=== PATIENT | male | born 1945 | race Caucasian/White ===

== ENCOUNTER 2018-06-11 16:09 | Emergency (ER) | payer MEDICARE, MEDICAID, SELFPAY ==
[2018-06-11 16:21] VITALS: BP 179/61; PULSE 57; RESP 16; TEMP 36.7; O2SAT 96
[2018-06-11 17:42] LABS: Bilirubin Negative (Negative); Blood Trace-lysed (Negative); Clarity Clear; Glucose Negative (Negative); Ketones Negative (Negative); Leukocyte Esterase Negative (Negative); Nitrite Negative (Negative); Urobilinogen 0.2 EU/dL (Up TO 0.2); pH 5.5 (5-8)
[2018-06-11 17:59] LABS: Epithelial Cells Rare HPF (Negative); RBC 0-2 (0-2); WBC Negative HPF (0-5)
[2018-06-11 18:00] LABS: Bacteria Rare HPF (Negative); C & S Indicated? No; Casts Negative LPF (Negative); Crystals Negative HPF (Negative); Mucus Negative (Negative)
--- NOTE | 2018-06-11 18:08 | W.ED.GENAD ---
Discharge Plan Disposition Patient Disposition: HOME Condition: Stable Discharge Details Chief Complaint: Abd Prob Clinical Impression: Leg pain, right, Umbilical hernia, Sciatica Primary Care Provider: Migel Patel ED Provider: Sandra Asher Home Meds and New Rx's Prescriptions: New diazepam 2 mg tablet 2 mg PO BID PRN (Reason: muscle spasm) Qty: 9 RF: 0 prednisone 50 mg tablet 50 mg PO DAILY Qty: 4 RF: 0 Continue vitamin B complex [B Complete] 1 EACH tablet 1 ea PO RF: 0 rosuvastatin [Crestor] 20 MG tablet 20 mg PO DAILY Qty: 90 RF: 4 rivaroxaban [Xarelto] 20 MG tablet 20 mg PO DAILY Qty: 30 RF: 11 potassium chloride 10 MEQ capsule, extended release 2 tab PO DAILY Qty: 60 RF: 11 terazosin 2 MG capsule 2 mg PO DAILY Qty: 90 RF: 3 magnesium L-lactate [Magtab] 84 MG tablet extended release 5 tab PO 3tab AM, 2tab PM Qty: 450 RF: 4 lisinopril 40 MG tablet 1 tab PO DAILY Qty: 90 RF: 4 dofetilide [Tikosyn] 500 MCG capsule 1 cap PO BID Qty: 180 RF: 4 furosemide 20 MG tablet 20 mg PO DAILY Qty: 90 RF: 3 gabapentin 300 MG capsule 300 mg PO BID Qty: 180 RF: 3 omeprazole 20 MG capsule,delayed release(DR/EC) 2 cap PO DAILY Qty: 180 RF: 0 Metoprolol Succinate 25 MG TAB.ER.24H 25 mg PO DAILY Qty: 90 RF: 4 Discharge Instructions Instructions: Diazepam (By mouth), Prednisone (By mouth), Sciatica (ED), Umbilical Hernia (ED), Leg Pain (ED) Additional Instructions: Please return immediately to the emergency department if you develop any new or worsening pain or if you become otherwise concerned. It is extremely important that you follow-up as an outpatient with your primary care doctor, a surgeon, and physical therapy within the next 1-2 weeks. Referrals: JOHANNY Ortiz [OTHER] - Faby Omalley MD [ [facility] STAFF PHYSICIAN] - Migel Patel MD [Primary Care Provider] - Discharge Data Discharge Date/Time-TO BE ENTERED AT DEPARTURE: 06/11/18 19:25 Medical Decision Making MDM Narrative Medical decision making narrative: Migel Rivas is a 73 y/o man with h/o afib on eliquis, HTN, HLD presenting to the emergency department with one week of right gluteal pain radiating into the right anterior thigh. On exam there is no motor or sensory defict of the LEs, normal rectal tone and perineal sensation, Pt is well and non-toxic appearing. Normal gait. Small reducible umbical hernia that is NTTP with benign abd exam. Exam/hx not c/w epidural hematoma or abscess, SONDRA or other spinal cord compression, spinal fx, incarcerated/strangulated hernia. Suspect sciatica. UA negative. Plan for valium and prednisone, outpt f/u with PCP, PT, and surgery for umbilical hernia. Lengthy discussion with Pt re: RTED precautions and importance of outpt f/u. He is amenable to the plan. Lab Data Lab Results 06/11/18 Range/Units 16:30 Urine Color Yellow (Yellow) Urine Clarity Clear Urine pH 5.5 (5-8) Ur Specific [place] 1.010 (1.005-1.025) Urine Protein Negative (Negative) mg/dL Urine Ketones Negative (Negative) mg/dL Urine Blood Trace-lysed H (Negative) Urine Nitrite Negative (Negative) Urine Bilirubin Negative (Negative) Urine Urobilinogen 0.2 (Up TO 0.2) EU/dL Ur Leukocyte Esterase Negative (Negative) Urine RBC 0-2 (0-2) Urine WBC Negative (0-5) HPF Ur Epithelial Cells Rare (Negative) HPF Urine Crystals Negative (Negative) HPF Urine Bacteria Rare (Negative) HPF Urine Casts Negative (Negative) LPF Urine Mucus Negative (Negative) Ur Culture Indicated? No Urine Glucose Negative (Negative) mg/dL HPI - General Adult General Mode of arrival: ambulatory. Date/Time Provider Initiated Documentation: 06/11/18 18:08. Limitations to Documentation: no limitations. Information obtained by: patient, RN notes reviewed and old records reviewed. HPI Narrative: Migel Rivas is a 73 y/o man with h/o afib on rivaroxaban, HTN, HLD presenting to the ED with right leg pain. Pt reports that for the past week he has had pain in his right buttock that radiates to the front of this right thigh. Also some mild right-sided back pain. Pt reports that pain has been unchanged since onset. Worst area is right thigh, feels like burning. Pt reports that he has taking no meds at home for this. Pt reports intermittent similar symptoms in the past, but not as severe. 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 Contrary to triage note he report no urinary symptoms. No changes in bladder function, bowel function. No n/t or weakness of the LEs. No fever, no rash, no h/o IVDU. Pain is worse with walking, improves somewhat with rest. Otherwise feels well and in his usual state of health. No other pain. He also notes umbilical bulge that come and goes and sometimes bothers him, but no pain today. Related Data Home Medications Medication Instructions Recorded Confirmed vitamin B complex [B Complete] 1 ea PO 08/31/16 Previous Rx's Medication Instructions Recorded rosuvastatin [Crestor] 20 mg PO DAILY #90 tab-cap 08/18/17 potassium chloride 2 tab PO DAILY #60 tab-cap 08/22/17 rivaroxaban [Xarelto] 20 mg PO DAILY #30 tab-cap 08/22/17 terazosin 2 mg PO DAILY #90 tab-cap 09/12/17 magnesium L-lactate [Magtab] 5 tab PO 3tab AM, 2tab PM #450 10/22/17 tab-cap lisinopril 1 tab PO DAILY #90 tab-cap 11/15/17 dofetilide [Tikosyn] 1 cap PO BID #180 tab-cap 11/28/17 furosemide 20 mg PO DAILY #90 tab-cap 01/13/18 gabapentin 300 mg PO BID #180 tab-cap 03/02/18 omeprazole 2 cap PO DAILY #180 tab-cap 03/14/18 diazepam 2 mg PO BID PRN #9 tab 06/11/18 prednisone 50 mg PO DAILY #4 tab 06/11/18 Allergies Allergy/AdvReac Type Severity Reaction Status Date / Time sildenafil AdvReac Intermediate FLUSHING Unverified 06/11/18 16:25 simvastatin AdvReac Intermediate Severe Unverified 06/11/18 16:25 myalgias General Stated Complaint: Abd Prob GUS: 3 Review of Systems Review of Systems Constitutional: denies fevers Eyes: denies eye pain ENT: denies facial pain, dental pain, sore throat Cardiovascular: denies chest pain, edema Respiratory: denies SOB, cough GI: denies abdominal pain, vomiting, diarrhea : denies flank pain MSK: denies neck pain; reports back pain, chronic right shoulder pain for months, unchanged Skin: denies rash Neuro: denies headaches, lightheadedness, weakness PFSH Family History Mother Osteoporosis Heart disease Father Heart disease Brother Heart disease Grandfather No problems noted. Grandfather Heart disease Grandmother Heart disease Grandmother Heart disease Daughter No problems noted. Son No problems noted. Social History Smoking/Tobacco Use Status: Never Surgical History EGD - MAC (08/20/14) Open Carpal Tunnel release Vasectomy Exam Narrative Exam Narrative: Constitutional: well and [id number], pleasant, conversing normally HENT: head atraumatic, normocephalic normal inspection, mucous membranes moist Eyes: conjunctiva normal, sclera normal, pupils 3mm b/l Neck: no stridor, normal ROM, trachea midline Chest: normal inspection Resp: normal work of breathing, LCTAB Cardio: normal rate, normal rhythm, no murmur appreciated GI: abdomen soft, non-tender, non-distended. normal rectal exam. reducible small soft umbilical hernia without overlying skin changes Back: normal inspection, no rash, NTTP. Mild TTP of right upper gluteal region without overlying skin changes. Skin: warm, dry, normal color, no rash Neuro: alert, not altered, grossly non-focal, normal tone, motor 5/5 b/l LEs, normal sensation b/l LEs and peritoneum, normal rectal tone Ext: no edema Psych: normal mood, normal affect, normal behavior Course Vital Signs Temperature 36.7 C 06/11/18 16:21 Pulse 57 L 06/11/18 16:21 Respiratory Rate 16 06/11/18 16:21 Blood Pressure 179/61 H 06/11/18 16:21 Pulse Oximetry 96 06/11/18 16:21 Temperature 36.7 C 06/11/18 16:21 Pulse 57 L 06/11/18 16:21 Respiratory Rate 16 06/11/18 16:21 Blood Pressure 179/61 H 06/11/18 16:21 Pulse Oximetry 96 06/11/18 16:21 Lab/Test Results Lab/Test Results: Laboratory Tests 06/11/18 16:30 Urine Color Yellow Urine Clarity Clear Urine pH 5.5 Ur Specific [place] 1.010 Urine Protein Negative Urine Ketones Negative Urine Blood Trace-lysed H Urine Nitrite Negative Urine Bilirubin Negative Urine Urobilinogen 0.2 Ur Leukocyte Esterase Negative Urine RBC 0-2 Urine WBC Negative Ur Epithelial Cells Rare Urine Crystals Negative Urine Bacteria Rare Urine Casts Negative Urine Mucus Negative Ur Culture Indicated? No Urine Glucose Negative
[2018-06-11] MEDS: predniSONE 20 MG TAB 60 MG PO (19:12)
[2018-06-11] MEDS: Acetaminophen 325 MG TAB 650 MG PO (19:12)
[2018-06-11] MEDS: Diazepam 5 MG TAB 10 MG (19:20)
--- NOTE | 2018-06-13 13:46 | ED.GENADUL_ITS ---
Discharge Plan Disposition Patient Disposition: HOME Condition: Stable Discharge Details Chief Complaint: Abd Prob Clinical Impression: Leg pain, right, Umbilical hernia, Sciatica Primary Care Provider: Migel Patel ED Provider: Sandra Asher Home Meds and New Rx's Prescriptions: New diazepam 2 mg tablet 2 mg PO BID PRN (Reason: muscle spasm) Qty: 9 RF: 0 prednisone 50 mg tablet 50 mg PO DAILY Qty: 4 RF: 0 Continue vitamin B complex [B Complete] 1 EACH tablet 1 ea PO RF: 0 rosuvastatin [Crestor] 20 MG tablet 20 mg PO DAILY Qty: 90 RF: 4 rivaroxaban [Xarelto] 20 MG tablet 20 mg PO DAILY Qty: 30 RF: 11 potassium chloride 10 MEQ capsule, extended release 2 tab PO DAILY Qty: 60 RF: 11 terazosin 2 MG capsule 2 mg PO DAILY Qty: 90 RF: 3 magnesium L-lactate [Magtab] 84 MG tablet extended release 5 tab PO 3tab AM, 2tab PM Qty: 450 RF: 4 lisinopril 40 MG tablet 1 tab PO DAILY Qty: 90 RF: 4 dofetilide [Tikosyn] 500 MCG capsule 1 cap PO BID Qty: 180 RF: 4 furosemide 20 MG tablet 20 mg PO DAILY Qty: 90 RF: 3 gabapentin 300 MG capsule 300 mg PO BID Qty: 180 RF: 3 omeprazole 20 MG capsule,delayed release(DR/EC) 2 cap PO DAILY Qty: 180 RF: 0 Metoprolol Succinate 25 MG TAB.ER.24H 25 mg PO DAILY Qty: 90 RF: 4 Discharge Instructions Instructions: Diazepam (By mouth), Prednisone (By mouth), Sciatica (ED), Umbilical Hernia (ED), Leg Pain (ED) Additional Instructions: Please return immediately to the emergency department if you develop any new or worsening pain or if you become otherwise concerned. It is extremely important that you follow-up as an outpatient with your primary care doctor, a surgeon, and physical therapy within the next 1-2 weeks. Referrals: JOHANNY Ortiz [OTHER] - Faby Omalley MD [ [facility] STAFF PHYSICIAN] - Migel Patel MD [Primary Care Provider] - Discharge Data Discharge Date/Time-TO BE ENTERED AT DEPARTURE: 06/11/18 19:25 Medical Decision Making MDM Narrative Medical decision making narrative: Migel Rivas is a 73 y/o man with h/o afib on eliquis, HTN, HLD presenting to the emergency department with one week of right gluteal pain radiating into the right anterior thigh. On exam there is no motor or sensory defict of the LEs, normal rectal tone and perineal sensation, Pt is well and non-toxic appearing. Normal gait. Small reducible umbical hernia that is NTTP with benign abd exam. Exam/hx not c/w epidural hematoma or abscess , SONDRA or other spinal cord compression, spinal fx, incarcerated/strangulated hernia. Suspect sciatica. UA negative. Plan for valium and prednisone, outpt f/ u with PCP, PT, and surgery for umbilical hernia. Lengthy discussion with Pt re : RTED precautions and importance of outpt f/u. He is amenable to the plan. Lab Data Lab Results 06/11/18 Range/Units 16:30 Urine Color Yellow (Yellow) Urine Clarity Clear Urine pH 5.5 (5-8) Ur Specific [place] 1.010 (1.005-1.025) Urine Protein Negative (Negative) mg/dL Urine Ketones Negative (Negative) mg/dL Urine Blood Trace-lysed H (Negative) Urine Nitrite Negative (Negative) Urine Bilirubin Negative (Negative) Urine Urobilinogen 0.2 (Up TO 0.2) EU/dL Ur Leukocyte Esterase Negative (Negative) Urine RBC 0-2 (0-2) Urine WBC Negative (0-5) HPF Ur Epithelial Cells Rare (Negative) HPF Urine Crystals Negative (Negative) HPF Urine Bacteria Rare (Negative) HPF Urine Casts Negative (Negative) LPF Urine Mucus Negative (Negative) Ur Culture Indicated? No Urine Glucose Negative (Negative) mg/dL HPI - General Adult General Mode of arrival: ambulatory . Date/Time Provider Initiated Documentation: 06/11/18 18:08 . Limitations to Documentation: no limitations . Information obtained by: patient, RN notes reviewed and old records reviewed . HPI Narrative: Migel Rivas is a 73 y/o man with h/o afib on rivaroxaban, HTN, HLD presenting to the ED with right leg pain. Pt reports that for the past week he has had pain in his right buttock that radiates to the front of this right thigh. Also some mild right-sided back pain. Pt reports that pain has been unchanged since onset. Worst area is right thigh, feels like burning. Pt reports that he has taking no meds at home for this. Pt reports intermittent similar symptoms in the past, but not as severe. 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 Contrary to triage note he report no urinary symptoms. No changes in bladder function, bowel function. No n/t or weakness of the LEs. No fever, no rash, no h/o IVDU. Pain is worse with walking, improves somewhat with rest. Otherwise feels well and in his usual state of health. No other pain. He also notes umbilical bulge that come and goes and sometimes bothers him, but no pain today. Related Data Home Medications Medication Instructions Recorded Confirmed vitamin B complex [B Complete] 1 ea PO 08/31/16 Previous Rx's Medication Instructions Recorded rosuvastatin [Crestor] 20 mg PO DAILY #90 tab-cap 08/18/17 potassium chloride 2 tab PO DAILY #60 tab-cap 08/22/17 rivaroxaban [Xarelto] 20 mg PO DAILY #30 tab-cap 08/22/17 terazosin 2 mg PO DAILY #90 tab-cap 09/12/17 magnesium L-lactate [Magtab] 5 tab PO 3tab AM, 2tab PM #450 10/22/17 tab-cap lisinopril 1 tab PO DAILY #90 tab-cap 11/15/17 dofetilide [Tikosyn] 1 cap PO BID #180 tab-cap 11/28/17 furosemide 20 mg PO DAILY #90 tab-cap 01/13/18 gabapentin 300 mg PO BID #180 tab-cap 03/02/18 omeprazole 2 cap PO DAILY #180 tab-cap 03/14/18 diazepam 2 mg PO BID PRN #9 tab 06/11/18 prednisone 50 mg PO DAILY #4 tab 06/11/18 Allergies Allergy/AdvReac Type Severity Reaction Status Date / Time sildenafil AdvReac Intermediate FLUSHING Unverified 06/11/18 16:25 simvastatin AdvReac Intermediate Severe Unverified 06/11/18 16:25 myalgias General Stated Complaint: Abd Prob GUS: 3 Review of Systems Review of Systems Constitutional: denies fevers Eyes: denies eye pain ENT: denies facial pain, dental pain, sore throat Cardiovascular: denies chest pain, edema Respiratory: denies SOB, cough GI: denies abdominal pain, vomiting, diarrhea : denies flank pain MSK: denies neck pain; reports back pain, chronic right shoulder pain for months , unchanged Skin: denies rash Neuro: denies headaches, lightheadedness, weakness PFSH Family History Mother Osteoporosis Heart disease Father Heart disease Brother Heart disease Grandfather No problems noted. Grandfather Heart disease Grandmother Heart disease Grandmother Heart disease Daughter No problems noted. Son No problems noted. Social History Smoking/Tobacco Use Status: Never Surgical History EGD - MAC (08/20/14) Open Carpal Tunnel release Vasectomy Exam Narrative Exam Narrative: Constitutional: well and [id number], pleasant, conversing normally HENT: head atraumatic, normocephalic normal inspection, mucous membranes moist Eyes: conjunctiva normal, sclera normal, pupils 3mm b/l Neck: no stridor, normal ROM, trachea midline Chest: normal inspection Resp: normal work of breathing, LCTAB Cardio: normal rate, normal rhythm, no murmur appreciated GI: abdomen soft, non-tender, non-distended. normal rectal exam. reducible small soft umbilical hernia without overlying skin changes Back: normal inspection, no rash, NTTP. Mild TTP of right upper gluteal region without overlying skin changes. Skin: warm, dry, normal color, no rash Neuro: alert, not altered, grossly non-focal, normal tone, motor 5/5 b/l LEs, normal sensation b/l LEs and peritoneum, normal rectal tone Ext: no edema Psych: normal mood, normal affect, normal behavior Course Vital Signs Temperature 36.7 C 06/11/18 16:21 Pulse 57 L 06/11/18 16:21 Respiratory Rate 16 06/11/18 16:21 Blood Pressure 179/61 H 06/11/18 16:21 Pulse Oximetry 96 06/11/18 16:21 Temperature 36.7 C 06/11/18 16:21 Pulse 57 L 06/11/18 16:21 Respiratory Rate 16 06/11/18 16:21 Blood Pressure 179/61 H 06/11/18 16:21 Pulse Oximetry 96 06/11/18 16:21 Lab/Test Results Lab/Test Results: Laboratory Tests 06/11/18 16:30 Urine Color Yellow Urine Clarity Clear Urine pH 5.5 Ur Specific [place] 1.010 Urine Protein Negative Urine Ketones Negative Urine Blood Trace-lysed H Urine Nitrite Negative Urine Bilirubin Negative Urine Urobilinogen 0.2 Ur Leukocyte Esterase Negative Urine RBC 0-2 Urine WBC Negative Ur Epithelial Cells Rare Urine Crystals Negative Urine Bacteria Rare Urine Casts Negative Urine Mucus Negative Ur Culture Indicated? No Urine Glucose Negative
== END 2018-06-11 19:25 | disposition home or self-care (01) ==
PROVIDERS: Emergency Provider Student in an Organized Health Care Education/Training Program; PCP Family Medicine
DX: K42.9 Umbilical hernia without obstruction or gangrene (principal); M54.32 Sciatica, left side; M79.652 Pain in left thigh; I10 Essential (primary) hypertension
CPT/HCPCS: 99283; 81003; 81015; J7512

== ENCOUNTER 2018-06-21 08:58 | Outpatient (CLI) | payer MEDICARE, MEDICAID, SELFPAY ==
[2018-06-21 11:27] LABS: Anion Gap 11.1 mmol/L (3-11); BUN 25 mg/dL (7-18); CO2 24.9 mmol/L (21.0-32.0); CREATININE 1.06 mg/dL (0.70-1.30); Chloride 101 mmol/L (98-107); Potassium 4.8 mmol/L (3.5-5.1); Sodium 137 mmol/L (136-145)
[2018-06-22 18:03] LABS: Magnesium 2.4 mg/dL (1.8-2.4)
== END 2018-06-21 09:18 ==
PROVIDERS: PCP General Practice; Visit Provider General Practice
DX: I10 Essential (primary) hypertension (principal); E83.42 Hypomagnesemia
CPT/HCPCS: 36415; 80051; 84520; 82565; 83735

== ENCOUNTER → 2018-06-27 13:09 | Outpatient (BNVA) | payer MEDICARE, MEDICAID, SELFPAY | PROVIDERS: PCP Family Medicine; Referring Provider Family Medicine; Visit Provider Surgery | DX: K42.9 Umbilical hernia without obstruction or gangrene (principal); I10 Essential (primary) hypertension | CPT/HCPCS: 99213 ==

== ENCOUNTER 2018-06-28 01:04 | Outpatient (CLI) | payer MEDICARE, MEDICAID, SELFPAY ==
--- NOTE | 2018-06-28 13:03 | DI.RAD_ITS ---
SYMPTOMS/DIAGNOSIS: HIP PAIN RIGHT HIP AND PELVIS: Three views. Comparison is 01/18/12. The right hip joint is well maintained. The bones are intact and normally mineralized. The sacroiliac joints, symphysis pubis and left hip are unremarkable. Vascular calcifications are seen. Clips are seen inferior to the pelvis suggesting prior vasectomy. IMPRESSION: No acute abnormality. Negative right hip.
== END 2018-06-28 01:24 ==
PROVIDERS: PCP General Practice; Visit Provider General Practice
DX: M25.551 Pain in right hip (principal)
CPT/HCPCS: 73502

== ENCOUNTER → 2018-07-06 10:43 | Outpatient (BNVA) | payer MEDICARE, MEDICAID, SELFPAY | PROVIDERS: Visit Provider Internal Medicine Cardiovascular Disease | DX: I48.91 Unspecified atrial fibrillation (principal); I10 Essential (primary) hypertension; Z79.01 Long term (current) use of anticoagulants; Z79.899 Other long term (current) drug therapy | CPT/HCPCS: 99213 ==

== ENCOUNTER 2018-07-10 01:58 | Outpatient (CLI) | payer MEDICARE, MEDICAID, SELFPAY | END 2018-07-10 02:18 | PROVIDERS: PCP General Practice; Visit Provider Internal Medicine Cardiovascular Disease | DX: Z53.8 Procedure and treatment not carried out for other reasons (principal) ==

== ENCOUNTER 2018-07-11 13:46 | Outpatient (CLI) | payer MEDICARE, MEDICAID, SELFPAY | END 2018-07-11 14:06 | PROVIDERS: PCP General Practice; Visit Provider General Practice | DX: I48.91 Unspecified atrial fibrillation (principal); I10 Essential (primary) hypertension; Z79.899 Other long term (current) drug therapy | CPT/HCPCS: 93005; 93010 ==

== ENCOUNTER 2018-08-31 10:42 | Emergency (ER) | payer MEDICARE, MEDICAID, SELFPAY ==
[2018-08-31] VITALS (17 sets, daily range): BP systolic 119–156; BP diastolic 48–103; PULSE 43–72; RESP 10–19; TEMP 36.5; O2SAT 94–100
--- NOTE | 2018-08-31 10:46 | W.ED.GENAD ---
Discharge Plan Disposition Patient Disposition: HOME Condition: Stable Discharge Details Chief Complaint: Dizzy/Sync Clinical Impression: Bradycardia, Recommended medication dosage not followed Primary Care Provider: Eliot Patterson ED Provider: Sandra Asher Home Meds and New Rx's Prescriptions: Continue vitamin B complex [B Complete] 1 EACH tablet 1 ea PO RF: 0 rosuvastatin [Crestor] 20 MG tablet 20 mg PO DAILY Qty: 90 RF: 4 rivaroxaban [Xarelto] 20 MG tablet 20 mg PO DAILY Qty: 30 RF: 11 potassium chloride 10 MEQ capsule, extended release 2 tab PO DAILY Qty: 60 RF: 11 terazosin 2 MG capsule 2 mg PO DAILY Qty: 90 RF: 3 magnesium L-lactate [Magtab] 84 MG tablet extended release 5 tab PO 3tab AM, 2tab PM Qty: 450 RF: 4 lisinopril 40 MG tablet 1 tab PO DAILY Qty: 90 RF: 4 dofetilide [Tikosyn] 500 MCG capsule 1 cap PO BID Qty: 180 RF: 4 furosemide 20 MG tablet 20 mg PO DAILY Qty: 90 RF: 3 gabapentin 300 MG capsule 300 mg PO BID Qty: 180 RF: 3 omeprazole 20 MG capsule,delayed release(DR/EC) 2 cap PO DAILY Qty: 180 RF: 0 Metoprolol Succinate 25 MG TAB.ER.24H 25 mg PO DAILY Qty: 90 RF: 4 diazepam 2 mg tablet 2 mg PO BID PRN (Reason: muscle spasm) Qty: 9 RF: 0 prednisone 50 mg tablet 50 mg PO DAILY Qty: 4 RF: 0 Discharge Instructions Additional Instructions: Please take your medications as prescribed. Please return immediately to the emergency department if you develop any new or worsening symptoms or if you become otherwise concerned. It is extremely important that you make an appointment to be seen in follow-up by your primary care doctor within the next 1-2 weeks. Referrals: Eliot Patterson MD [Primary Care Provider] - Discharge Data Discharge Date/Time-TO BE ENTERED AT DEPARTURE: 08/31/18 12:06 Medical Decision Making Migel Rivas is a 73-year-old man with history of atrial fibrillation on Tikosyn, anticoagulation, hypercholesterolemia, hypertension presenting to the emergency department from his PCPs office with bradycardia after taking extra doses of metoprolol, with total of 100 mg metoprolol XL taken in the past 24 hours. He is currently asymptomatic other than feeling tired. On exam patient is very well and nontoxic appearing. Heart rate between 40 and 60 on the monitor. Blood pressure between 130 and 150 systolic. Otherwise benign cardiopulmonary exam. Patient exam/history is not consistent with significant beta-case overdose or polypharmacy overdose. EKG shows sinus bradycardia. I did discuss patient's presentation with poison control, who recommended no action, no observation period needed as total dose was less than 400 mg in 24 hours. I had a lengthy discussion with the patient regarding proper use of his medications and importance of taking them only as prescribed. Lengthy discussion also regarding return to emergency department precautions and importance of outpatient follow-up with his PCP and ENT on Tuesday as scheduled. Patient reports that he feels very well and would like to go home at this point. He is amenable to the discharge plan. Patient walked out of the emergency department without issue. Medical Records Medical records reviewed: Yes I reviewed the patient's medical records. ECG Data Attestation: I personally reviewed and interpreted this ECG (s) as follows: Interpretation: EKG shows sinus bradycardia at 44 with normal axis, no acute ischemic changes HPI General Mode of arrival: ambulatory. Date/Time Provider Initiated Documentation: 08/31/18 10:46. Limitations to Documentation: no limitations. Information obtained by: patient, RN notes reviewed and old records reviewed. HPI Narrative: Migel Rivas is a 73-year-old man with history of hypertension, A. fib on anticoagulation, hypercholesterolemia presenting to the emergency department with taking extra doses of metoprolol. Patient reports that he takes 25 mg of metoprolol XL daily in the morning. He reports that he take his blood pressure last night, and found to be 180/80. He called a friend of his who is a nurse practitioner, and she instructed him to take an extra dose of his 25 mg metoprolol XL. He took this extra dose at approximately 9:00 last night. Patient reports that this morning his blood pressure was 150/60, and he doubled his morning dose, that is, he took a total of 50 mg of metoprolol XL this morning. Patient saw his PCP, Dr. Patterson, this morning at scheduled visit for head cold he has been experiencing over the past 2 weeks. At this visit he was found to be bradycardic with a heart rate of 38, and was sent to the emergency department for evaluation. Patient walked to the emergency department from his doctor's office without issue. Patient reports that he has bilateral ear fullness that has been ongoing for the past week and he feels somewhat tired over the past few days, otherwise he denies having any symptoms. No lightheadedness or fainting, no numbness/tingling/weakness, no shortness of breath, no pain. Has been taking all of his other medications as prescribed. Has never increase his metoprolol dose in the past before. Patient reports that his typical heart rate is around 55 or 56. Has been eating and drinking as usual. Related Data Home Medications Medication Instructions Recorded Confirmed vitamin B complex [B Complete] 1 ea PO 08/31/16 06/27/18 rosuvastatin [Crestor] 20 mg PO DAILY #90 tab-cap 08/18/17 08/31/18 potassium chloride 2 tab PO DAILY #60 tab-cap 08/22/17 08/31/18 rivaroxaban [Xarelto] 20 mg PO DAILY #30 tab-cap 08/22/17 08/31/18 terazosin 2 mg PO DAILY #90 tab-cap 09/12/17 08/31/18 magnesium L-lactate [Magtab] 5 tab PO 3tab AM, 2tab PM #450 10/22/17 08/31/18 tab-cap lisinopril 1 tab PO DAILY #90 tab-cap 11/15/17 08/31/18 dofetilide [Tikosyn] 1 cap PO BID #180 tab-cap 11/28/17 08/31/18 furosemide 20 mg PO DAILY #90 tab-cap 01/13/18 08/31/18 gabapentin 300 mg PO BID #180 tab-cap 03/02/18 08/31/18 omeprazole 2 cap PO DAILY #180 tab-cap 03/14/18 08/31/18 diazepam 2 mg PO BID PRN #9 tab 06/11/18 08/31/18 prednisone 50 mg PO DAILY #4 tab 06/11/18 08/31/18 Previous Rx's Medication Instructions Recorded rosuvastatin [Crestor] 20 mg PO DAILY #90 tab-cap 08/18/17 potassium chloride 2 tab PO DAILY #60 tab-cap 08/22/17 rivaroxaban [Xarelto] 20 mg PO DAILY #30 tab-cap 08/22/17 terazosin 2 mg PO DAILY #90 tab-cap 09/12/17 magnesium L-lactate [Magtab] 5 tab PO 3tab AM, 2tab PM #450 10/22/17 tab-cap lisinopril 1 tab PO DAILY #90 tab-cap 11/15/17 dofetilide [Tikosyn] 1 cap PO BID #180 tab-cap 11/28/17 furosemide 20 mg PO DAILY #90 tab-cap 01/13/18 gabapentin 300 mg PO BID #180 tab-cap 03/02/18 omeprazole 2 cap PO DAILY #180 tab-cap 03/14/18 diazepam 2 mg PO BID PRN #9 tab 06/11/18 prednisone 50 mg PO DAILY #4 tab 06/11/18 Allergies Allergy/AdvReac Type Severity Reaction Status Date / Time sildenafil AdvReac Intermediate FLUSHING Verified 08/31/18 11:05 simvastatin AdvReac Intermediate Severe Verified 08/31/18 11:05 myalgias General GUS: 3 Review of Systems Review of Systems Constitutional: denies fevers, reports fatigue Eyes: denies eye pain ENT: denies facial pain, dental pain, sore throat, reports ear fullness Cardiovascular: denies chest pain, edema Respiratory: denies SOB, cough GI: denies abdominal pain, vomiting, diarrhea : denies flank pain MSK: denies back pain, arthralgias, myalgias Skin: denies rash Neuro: denies headaches, lightheadedness, weakness 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 Grandfather Heart disease Grandmother Heart disease Grandmother Heart disease Daughter No problems noted. Son No problems noted. H/O colonoscopy (Chronic ~2012) EGD - MAC (08/20/14) Open Carpal Tunnel release Vasectomy Family History Mother Osteoporosis Heart disease Father Heart disease Brother Heart disease Grandfather No problems noted. Grandfather Heart disease Grandmother Heart disease Grandmother Heart disease Daughter No problems noted. Son No problems noted. 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 drug (Chronic) Adequate anticoagulation on anticoagulant therapy (Chronic) Atrial fibrillation (Chronic) New onset atrial fibrillation (Chronic 01/03/14) Syncopal episodes (Chronic 01/03/14) Irritable bowel syndrome (Chronic) Diverticulitis (Chronic 12/31/13) Gastroesophageal reflux disease (Chronic) Hypertension (Chronic) Decreased hearing (Chronic) right arm dysfunction (Chronic) Colonic polyp (Chronic) Hypercholesterolemia (Chronic) Social History Smoking/Tobacco Use Status: Never Surgical History H/O colonoscopy (Chronic ~2012) EGD - MAC (08/20/14) Open Carpal Tunnel release Vasectomy Social History Smoking/Tobacco Use Status: Never Exam Narrative Exam Narrative: Constitutional: well and [id number], pleasant, conversing normally HENT: head atraumatic, normocephalic normal inspection, mucous membranes moist, bilateral canals occluded with cerumen Eyes: conjunctiva normal, sclera normal, pupils 3mm b/l Neck: no stridor, normal ROM, trachea midline Chest: normal inspection Resp: normal work of breathing, LCTAB Cardio: Bradycardic rate, normal rhythm, no murmur appreciated Back: normal inspection, no rash Skin: warm, dry, normal color, no rash Neuro: alert, not altered, grossly non-focal, normal tone Ext: no edema Psych: normal mood, normal affect, normal behavior
== END 2018-08-31 12:06 | disposition home or self-care (01) ==
LOC: ER 12:11
PROVIDERS: Emergency Provider Student in an Organized Health Care Education/Training Program; PCP General Practice
DX: T44.7X2A Poisoning by beta-adrenoreceptor antagonists, intentional self-harm, initial encounter (principal); R00.1 Bradycardia, unspecified; I10 Essential (primary) hypertension
CPT/HCPCS: 93005; 99283; 93010

== ENCOUNTER 2019-04-26 08:12 | Outpatient (CLI) | payer MEDICARE, MEDICAID, SELFPAY | END 2019-04-26 08:32 | PROVIDERS: PCP General Practice; Visit Provider Internal Medicine Cardiovascular Disease | DX: I48.91 Unspecified atrial fibrillation (principal); Z79.899 Other long term (current) drug therapy; I10 Essential (primary) hypertension; Z79.01 Long term (current) use of anticoagulants; E78.00 Pure hypercholesterolemia, unspecified | CPT/HCPCS: 99214 ==

== ENCOUNTER 2019-04-26 12:40 | Outpatient (CLI) | payer MEDICARE, MEDICAID, SELFPAY ==
[2019-04-26 14:30] LABS: Anion Gap 7.3 mmol/L (3-11); BUN 17 mg/dL (7-18); CO2 28.7 mmol/L (21.0-32.0); CREATININE 1.01 mg/dL (0.70-1.30); Calcium 9.7 mg/dL (8.5-10.1); Chloride 104 mmol/L (98-107); Glucose 101 mg/dL (70-100); Magnesium 2.1 mg/dL (1.8-2.4); Potassium 4.6 mmol/L (3.5-5.1); Sodium 140 mmol/L (136-145)
== END 2019-04-26 13:00 ==
PROVIDERS: PCP General Practice; Visit Provider Internal Medicine Cardiovascular Disease
DX: I48.91 Unspecified atrial fibrillation (principal); Z79.899 Other long term (current) drug therapy; I10 Essential (primary) hypertension
CPT/HCPCS: 36415; 80048; 99214; 83735

== ENCOUNTER 2019-09-24 08:08 | Outpatient (CLI) | payer MEDICARE, MEDICAID, SELFPAY | END 2019-09-24 08:28 | PROVIDERS: PCP Family Medicine; Visit Provider Internal Medicine Cardiovascular Disease | DX: I48.91 Unspecified atrial fibrillation (principal); I10 Essential (primary) hypertension | CPT/HCPCS: 99204; 99215; 93005; 93010 ==

== ENCOUNTER → 2020-03-21 12:52 | Outpatient (BNVA) | payer MEDICARE, SELFPAY | PROVIDERS: PCP Family Medicine; Referring Provider Family Medicine; Visit Provider Surgery | DX: K42.0 Umbilical hernia with obstruction, without gangrene (principal); I10 Essential (primary) hypertension | CPT/HCPCS: 99213 ==

== ENCOUNTER 2020-03-31 07:43 | Outpatient (CLI) | payer MEDICARE, SELFPAY ==
[2020-04-01 01:44] LABS: COVID-19 RT-PCR UVMMC Result Negative (Negative)
== END 2020-03-31 08:03 ==
PROVIDERS: PCP Family Medicine; Visit Provider Surgery
DX: Z01.818 Encounter for other preprocedural examination (principal); Z03.818 Encounter for observation for suspected exposure to other biological agents ruled out
CPT/HCPCS: U0003

== ENCOUNTER 2020-04-02 06:17 | Day surgery (SDC) | payer MEDICARE, SELFPAY ==
[2020-04-02] VITALS (7 sets, daily range): BP systolic 138–170; BP diastolic 70–100; PULSE 46–68; RESP 13–16; TEMP 36.3–36.6; O2SAT 97–99
--- NOTE | 2020-04-02 06:07 | W.PM.OP ---
Date of service: 04/02/20 Time of Service: 08:38 Operative Note Operative Note DATE OF PROCEDURE: 04/02/20 PRE-OP DIAGNOSIS: Umbilical Hernia POST-OP DIAGNOSIS: same PROCEDURE: Primary Umbilical hernia repair SURGEON: Faby Omalley CIRCUIT BREAKER ASSEMBLER: Owen Madrid ANESTHESIA: MAC, regional (Bialteral Rectus block) and local (0.25% Marcaine mixed with 2% Lidocaine) ESTIMATED BLOOD LOSS: 10 PATHOLOGY: none sent COMPLICATIONS: None Patient was transported to: PACU Patient's condition: stable Indications: Mr. Rivas is a pleasant 75 year old with an umbilical hernia that is now starting to cause some discomfort. Risks, benefits and complications have been reviewed. Complications include but are not limited to bleeding, pain, infection, injury to underlying structures like bowel and adverse reaction to the medication. Questions were entertained and answered to their satisfaction and they wished to proceed. No guarantees were given or implied. Findings: Small 1 cm defect withy omentum incarcerated Procedure Description: After informed consent was obtained the patient was taken to the operating room and placed in a supine position. Monitors and SCDs were applied and a timeout was done. The patient's name, date of , procedure type, procedure site, allergies to medications, preoperative antibiotic, and DVT prophylaxis were all reviewed. Fire risk was assessed. Anesthesia then did a bilateral rectus block. Please see their procedure note. Once anesthesia was done the abdomen was prepped and draped in a sterile surgical fashion. 0.5% Bupivacaine mixed with 2% Lidocaine was injected into the dermis just above the umbilicus. An incision was made with a 15 blade over the umbilicus. Dissection was done with cautery through the subcutaneous tissues and through the umbilical stalk down to the fascia. The hernia defect was identified and measured 1 cm. The hernia sac was opened and some omentum was noted. I could not easily reduce the omentum so it was resected. The hernia sac was resected at the level of the fascia. The peritoneum was swept for adhesions. No adhesions were palpated. Because the defect was so small I repaired it with a figure of eight suture with 0 Vicryl. No bleeding was identified. 2-0 Vicryl was used to secure the umbilicus down to the fascia. The subcutaneous tissue was re-approximated with 2-0 vicryl. The dermis was re-approximated with a running 4-0 Vicryl. The skin was cleaned and dried and skin affix was applied. The patient was woken up and taken back to recovery in stable condition. There were no immediate complications. Sponge, instrument and needle counts were correct at the end of the case x2.
--- NOTE | 2020-04-02 06:10 | W.PM.DSUDISC ---
Discharge Plan Disposition Patient Disposition: HOME Condition: Good Discharge Details Reason For Visit: umbilical hernia Attending Provider: Faby Omalley Primary Care Provider: Carlitos Savage Home Meds and New Rx's Prescriptions: New acetaminophen [Tylenol] 325 mg tablet 650 mg PO Q6H PRNQty: 30 RF: 0 oxycodone 5 mg tablet 5 mg PO Q6H PRN (Reason: pain) Qty: 10 RF: 0 Continued metoprolol succinate 25 mg tablet extended release 24 hr 25 mg PO DAILY Qty: 90 RF: 3 gabapentin 300 mg capsule 300 mg PO QHS RF: 0 lisinopril 40 mg tablet 40 mg PO DAILY RF: 0 furosemide 20 mg tablet 20 mg PO DAILY RF: 0 Xarelto 20 MG tablet 20 mg PO DAILY Qty: 30 RF: 11 omeprazole 20 MG capsule,delayed release(DR/EC) 2 cap PO DAILY Qty: 180 RF: 0 rosuvastatin 20 mg tablet 20 mg PO DAILY Qty: 90 RF: 3 dofetilide [Tikosyn] 500 mcg capsule 500 mcg PO BID Qty: 180 RF: 4 terazosin 2 mg capsule 2 mg PO DAILY Qty: 90 RF: 3 fluticasone propionate 50 mcg/actuation spray,suspension 2 spray NIEVES DAILY RF: 0 potassium chloride 10 mEq capsule, extended release 20 meq PO DAILY Qty: 60 RF: 11 magnesium L-lactate [Magtab] 84 mg tablet extended release 420 mg PO 3tab AM, 2tab PM Qty: 450 RF: 4 Discontinued ibuprofen 200 mg tablet 200 mg PO Q6H PRNRF: 0 No Action acetaminophen 325 mg Tablet RF: 0 Discharge Instructions Additional Instructions: Activity at Home after surgery: 1. Make sure you walk outside at least 4 times per day 2. You should be able to climb a flight of stairs 3. No driving while in pain or taking pain medications 4. No strenuous activity or heavy lifting for 4 weeks (open surgery) Diet, Nutrition, & wound healin. Avoid alcohol until after you are recovered from your surgery 2. Make sure to eat plenty of lean protein (meat, fish, eggs, cottage cheese, beans) 3. Eat a variety of fruits and vegetables. Eat plenty of high fiber foods to avoid constipation. 4. Drink plenty of liquids to stay hydrated and avoid constipation Pain Medications: 1. Tylenol 650 mg every 6 hours 2. If a narcotic has been prescribed take as directed only for breakthrough pain For Constipation: 1. Take Milk of Magnesia or MiraLax as needed for constipation Other: 1. You may shower daily. Do not scrub the incisions 2. Do not soak the incisions for 1 week 3. You may alternate ice and heat as needed for pain and swelling Wound Care: 1. Keep the incisions clean and dry Please call our office if you develop: 1. Fevers >101.5 2. Nausea or Vomiting 3. Worsening pain 4. Redness and thick discharge from the wounds If after hours please call the Hospital at and ask to speak to the on-call surgeon Referrals: Faby Omalley MD [ [facility] STAFF PHYSICIAN] - Activity:: no lifting >20 lb x 4 weeks Diet:: As Tolerated Discharge Orders Discharge Orders: Discharge Order (Routine); Ordered 04/02/20 Ordered By: Faby Omalley
[2020-04-02] MEDS: Acetaminophen 500 MG TAB 1000 MG PO (07:04)
[2020-04-02] MEDS: Celecoxib 200 MG CAP PO (07:05)
[2020-04-02] MEDS: Lactated Ringers 1,000 ML 80 ML IV (07:12)
[2020-04-02] MEDS: ceFAZolin 2 GM/50 ML BAG IVPB (07:40)
[2020-04-02] MEDS: Bupivacaine 0.25% Pres-Free 10 ML VIAL (07:45)
[2020-04-02] MEDS: Bupivacaine 0.25% Pres-Free 30 ML VIAL ×2 (07:45→08:24)
--- NOTE | 2020-04-02 08:17 | NUR.NOTE ---
Nursing Note: Bilateral Rectus Sheath block by Salinas Dean, DERRICK CAR OPERATOR
[2020-04-02] MEDS: Lidocaine 2% Multi-Dose 50 ML VIAL (08:26)
== END 2020-04-02 10:43 | disposition home or self-care (01) ==
LOC: SUR 06:17
PROVIDERS: PCP Family Medicine; Visit Provider Surgery
PROC: (CPT 49585; principal; 2020-04-02 07:30)
DX: K42.9 Umbilical hernia without obstruction or gangrene (principal); G89.18 Other acute postprocedural pain; I10 Essential (primary) hypertension; G47.33 Obstructive sleep apnea (adult) (pediatric)
CPT/HCPCS: 49585; 76942; J0690; J2405

== ENCOUNTER → 2020-04-18 09:31 | Outpatient (BNVA) | payer MEDICARE, SELFPAY | PROVIDERS: PCP Family Medicine; Referring Provider Family Medicine; Visit Provider Surgery | DX: Z48.815 Encounter for surgical aftercare following surgery on the digestive system (principal) ==

== ENCOUNTER → 2020-07-10 08:51 | Outpatient (BNVA) | payer MEDICARE, SELFPAY | PROVIDERS: PCP Family Medicine; Referring Provider Family Medicine; Visit Provider Nurse Practitioner Adult Health | DX: G62.9 Polyneuropathy, unspecified (principal); R73.03 Prediabetes; R20.2 Paresthesia of skin; I10 Essential (primary) hypertension | CPT/HCPCS: 99214 ==

== ENCOUNTER 2020-07-15 12:18 | Outpatient (REF) | payer MEDICARE, SELFPAY | END 2020-07-15 12:38 | LOC: LBN 12:18 | PROVIDERS: PCP Family Medicine; Visit Provider Student in an Organized Health Care Education/Training Program | DX: R19.7 Diarrhea, unspecified (principal); Z86.010 Personal history of colon polyps; R10.11 Right upper quadrant pain; R14.0 Abdominal distension (gaseous) | CPT/HCPCS: 87046; 87505; 82270 ==

== ENCOUNTER 2020-07-17 14:42 | Outpatient (REF) | payer MEDICARE, SELFPAY ==
[2020-07-21 15:15] LABS: Misc Referral (VDH) See Comments
== END 2020-07-17 15:02 ==
LOC: LBN 14:42
PROVIDERS: PCP Family Medicine; Visit Provider Student in an Organized Health Care Education/Training Program
DX: R19.7 Diarrhea, unspecified (principal)
CPT/HCPCS: 87505; 87177

== ENCOUNTER 2020-07-23 02:43 | Outpatient (CLI) | payer MEDICARE, SELFPAY ==
--- NOTE | 2020-07-23 07:00 | DI.US_ITS ---
EXAM: US ABDOMEN INDICATION: R/O biliary pathology,ruq abd tenderness,r10.811,diarrhea,constipation,abd COMPARISON: US US OR ANESTHESIA from 04/02/2020 TECHNIQUE: Ultrasound abdomen performed using standard protocol FINDINGS: Abdominal ultrasound was performed according to the usual protocol. The liver is normal in size and shape. No focal hepatic lesion seen, however there is increased echo genicity of the hepatic parenchyma raising the possibility of hepatic steatosis. There is no evidence of cholelithiasis or biliary dilatation. No gallbladder wall thickening or peric holecystic fluid collection. Pancreas appears intact as visualized. Spleen is unremarkable in appearance with no focal lesion. Kidneys are normal in size and shape. No renal mass, hydronephrosis, or nephrolithiasis. Abdominal aorta and IVC are of normal diameter as visualized, proximal aorta is not visualized.. IMPRESSION: Negative abdominal ultrasound except for probable hepatic steatosis..
--- NOTE | 2020-07-23 09:33 | DI.RAD_ITS ---
EXAM: XR ABDOMEN FLAT UPRIGHT CLINICAL HISTORY: r/o constipation, obstipation,diarrhea,abd bloating,r14.0,r19.7,z87.19 TECHNIQUE: COMPARISON: CR ABD FLAT UPRIGHT PA CHEST from 12/31/2013 FINDINGS: Four views were obtained. Bowel gas pattern is within normal limits. No free intraperitoneal air on the upright view. No gross organomegaly. IMPRESSION: No acute abnormality seen. RADIATION DOSE DELIVERED: Total DLP
== END 2020-07-23 03:03 ==
PROVIDERS: PCP Family Medicine; Visit Provider Student in an Organized Health Care Education/Training Program
DX: R14.0 Abdominal distension (gaseous) (principal); R19.7 Diarrhea, unspecified; Z87.19 Personal history of other diseases of the digestive system; R10.811 Right upper quadrant abdominal tenderness
CPT/HCPCS: 74019; 76700

== ENCOUNTER 2020-08-04 08:15 | Outpatient (REF) | payer MEDICARE, SELFPAY ==
[2020-08-06 15:19] LABS: Giardia & Cryptosporidium Ag See Comments
== END 2020-08-04 08:35 ==
LOC: LBN 08:15
PROVIDERS: PCP Family Medicine; Visit Provider Family Medicine
DX: R19.7 Diarrhea, unspecified (principal)
CPT/HCPCS: 87329

== ENCOUNTER → 2020-08-12 08:37 | Outpatient (BNVA) | payer MEDICARE, SELFPAY | PROVIDERS: PCP Family Medicine; Referring Provider Family Medicine; Visit Provider Surgery | DX: R19.7 Diarrhea, unspecified (principal); Z11.59 Encounter for screening for other viral diseases | CPT/HCPCS: 99212; 99213 ==

== ENCOUNTER 2020-08-14 02:54 | Outpatient (CLI) | payer MEDICARE, SELFPAY ==
[2020-08-15 22:17] LABS: SARS-CoV-2 RNA Source Nasal/Nares
[2020-08-15 22:18] LABS: SARS-CoV-2 RNA Not Detected (NotDetected)
== END 2020-08-14 03:14 ==
PROVIDERS: PCP Family Medicine; Visit Provider Surgery
DX: Z11.59 Encounter for screening for other viral diseases (principal); Z01.818 Encounter for other preprocedural examination
CPT/HCPCS: U0003

== ENCOUNTER 2020-08-18 06:53 | Day surgery (SDC) | payer MEDICARE, SELFPAY ==
--- NOTE | 2020-08-18 06:53 | W.COLOREPORT ---
Date of service: 08/18/20 Time of Service: 08: Colonoscopy Report Date of procedure: 08/18/20 Pre-op diagnosis general: Diarrhea Post-op diagnosis procedure note: other (polyps, mild diverticulosis) Procedure: Colonoscopy with polypectomy and random biopsies Surgeon: Faby Omalley Anesthesia proc note operative: other (General/ASA 3/Nena Gotti, BELL) Estimated blood loss (mL): 3 Pathology: other (ascending and descending polyps, random bx of ascending, transverse, descending, sigmoid colon and rectum.) Complications: None Disposition: same day Indications: Mr. Rivas is here today because he started having diarrhea approximately 7 weeks ago. He has 6-8 bowel movements a day which are pretty liquid. He has some associated mid abdominal pain. His pain does improve after having a bowel movement. Nobody else in the family has been ill and his stool studies were all negative for ova parasite or bacterial infection. Differential includes inflammatory bowel disease secondary to viral enteritis. I explained to him that sometimes after viral gastroenteritis patients may continue with diarrhea 6+ months afterwards. He could have developed microscopic colitis or collagenous colitis. I do not suspect that he has a colonic mass. He was wondering about this but I explained that they did not see any diverticuli in 2011 or 2014. He is 5 years out from his last colonoscopy. With these new symptoms it is reasonable to repeat his colonoscopy. If there is no visible inflammation then I will do random biopsies to rule out microscopic and collagenous colitis. Colonoscopy procedure was explained to the patient as well as the prep. We went over risks and benefits. We also reviewed Covid testing prior to procedure as well as quarantine requirements. Patient understands and is willing to proceed with Covid testing and quarantine prior to colonoscopy. Risks, benefits and complications have been reviewed. Complications include but are not limited to bleeding, pain, perforation, missed small lesion/polyp, sore throat, aspiration and adverse reaction to the medications. Questions were entertained and answered to their satisfaction and they wished to proceed. No guarantees were given or implied. Prep: Miralax/Dulcolax Procedure Start Time: :23 Procedure End Time: 08:48 Retraction Time: 21 minutes Findings: mild diverticulosis 2 polyps no visible inflammation Procedure Description: After informed consent was obtained the patient was taken to the procedure room and placed in a left decubitous position. Monitors were applied and a time out was done. The patients name, date of , procedure, allergies to medications and metal in their body was reviewed. The patient was then sedated. Once sedated and comfortable a rectal exam was done. External exam was normal. Internal exam revealed a normal sphincter tone and no palpable masses. The prostate felt smooth. The scope was then introduced and retro-flexed. No internal hemorrhoids were identified. The scope was then advanced to the cecum without difficulty. The ileocecal valve and appendiceal orifice were identified. The prep was good. The scope was then slowly retracted over 21 minutes back into the rectum. Polyps were removed with cold forceps in the ascending and descending polyp. Random bx were done with cold forceps in the ascending, transverse, descending, sigmoid colon and rectum to rule out microscopic/collagenous colitis. There was no gross inflammation noted. There was mild sigmoid diverticulosis noted. The scope was removed and the patient was woken up and taken back to Same day surgery in stable condition. The patient tolerated the procedure well and there were no immediate complications. Follow up: Follow up will depend on biopsy results
--- NOTE | 2020-08-18 06:54 | W.PM.DSUDISC ---
Discharge Plan Disposition Patient Disposition: HOME Condition: Good Discharge Details Reason For Visit: Diarrhea Attending Provider: Faby Omalley Primary Care Provider: Carlitos Savage Home Meds and New Rx's Prescriptions: Continued metoprolol succinate 25 mg tablet extended release 24 hr 25 mg PO DAILY Qty: 90 RF: 3 gabapentin 300 mg capsule 300 mg PO QHS RF: 0 Benefiber Sugar Free (dextrin) 3 gram/4 gram powder in packet 1 packet PO DAILY RF: 0 omeprazole 20 MG capsule,delayed release(DR/EC) 2 cap PO DAILY Qty: 180 RF: 0 fluticasone propionate 50 mcg/actuation spray,suspension 2 spray NIEVES DAILY RF: 0 potassium chloride 10 mEq capsule, extended release 20 meq PO DAILY Qty: 60 RF: 11 magnesium L-lactate [Magtab] 84 mg tablet extended release 420 mg PO 3tab AM, 2tab PM Qty: 450 RF: 4 lisinopril 40 mg tablet 40 mg PO DAILY Qty: 90 RF: 3 Xarelto 20 mg tablet 20 mg PO DAILY Qty: 30 RF: 11 dofetilide [Tikosyn] 500 mcg capsule 500 mcg PO BID Qty: 180 RF: 4 furosemide 20 mg tablet 20 mg PO DAILY Qty: 90 RF: 3 rosuvastatin 20 mg tablet 20 mg PO DAILY Qty: 90 RF: 3 terazosin 2 mg capsule 2 mg PO DAILY Qty: 90 RF: 3 acetaminophen [Tylenol] 325 mg tablet 650 mg PO Q6H PRNQty: 30 RF: 0 Discontinued bisacodyl [Dulcolax (bisacodyl)] 5 mg tablet,delayed release (DR/EC) 5 mg PO ONCE Qty: 4 RF: 0 polyethylene glycol 3350 17 gram powder in packet 255 g PO DAILY Qty: 15 RF: 0 Discharge Instructions Instructions: Diverticulosis (DC), Colorectal Polyps (DC) Additional Instructions: Findings: 2 small polyps mild diverticulosis Follow up: I will call you with results of the bx and polyps and they come up with a plan Please call if you develop: fevers >101.5 Nausea or Vomiting Abdominal pain that is not transient DAY SURGERY UNIT POST ENDOSCOPY INSTRUCTIONS 1. Because there will be medication in your system for the next 24 hours, you may feel a little sleepy. Your coordination will be affected. Therefore: a. Do not drive or operate dangerous equipment for 24 hours. b. Do not drink alcohol beverages for 24 hours (not even beer). c. Plan to go home and rest for the day. 2. Generally there are no restrictions on your activity after a day or so has gone by, but you may feel a bit fatigued for a few days. 3 After you arrive home you may have a light meal and return to a normal diet as you can tolerate it without feeling sick to your stomach. 4. After surgery, you may feel pain or discomfort. This should be only transient, but if it persists please contact your doctor. 5. If there are any questions regarding the findings of your procedure, please feel free to contact your doctor. 6. If you are unable to contact your doctor with a problem, contact the hospital at [phone]. 7. Continue all your regular medications unless directed otherwise. I understand the above instructions and have no questions. Signature of Patient or Responsible Adult Escort Date/Time Name of Responsible Adult Escort Signature of Nurse Date/Time Activity:: Activity as Tolerated Diet:: As Tolerated Discharge Orders Discharge Orders: Discharge Order (Routine); Ordered 08/18/20 Ordered By: Faby Omalley
[2020-08-18 07:21] VITALS: BP 136/72; PULSE 64; RESP 18; TEMP 36.5; O2SAT 94
[2020-08-18] MEDS: Lactated Ringers 1,000 ML 80 ML IV (07:54)
--- NOTE | 2020-08-18 08:30 | BOWEL_PTH ---
PATIENT: Migel Rivas LOC: [facility] U#:[id number] AGE/SX: 75/M ROOM: RE08/18/[address]: Faby Omalley MD : [id number] BED: DIS: 08/18/2020 SPEC #: [id number] RECD: 08/18/20 12:39 STATUS: NISA RE #: [id number] NATASHA: 08/18/20 08:[address]: Faby Omalley DEPT: Surgical Specimen RECD BY: Anne-Marie Mixon ENTERED: 08/18/20 12:42 SP TYPE: Bowel OTHR DR: Carlitos Savage DO Tissues: 1 - BIOPSY BOWEL 2 - BIOPSY BOWEL 3 - BIOPSY BOWEL 4 - BIOPSY BOWEL 5 - BIOPSY BOWEL 6 - BIOPSY BOWEL 7 - BIOPSY BOWEL Procedures: GROSS AND MICRO LEVEL 4 Comments: [id number]
[2020-08-18 09:20] VITALS: BP 121/69; PULSE 56; RESP 18; TEMP 36.2; O2SAT 95
== END 2020-08-18 10:10 | disposition home or self-care (01) ==
PROVIDERS: PCP Family Medicine; Visit Provider Surgery
PROC: 0DJD8ZZ Inspection of Lower Intestinal Tract, Via Natural or Artificial Opening Endoscopic (ICD-10-PCS; CPT 45378; principal; 2020-08-18 08:15)
DX: D12.2 Benign neoplasm of ascending colon (principal); K63.5 Polyp of colon; I10 Essential (primary) hypertension; E78.5 Hyperlipidemia, unspecified; K57.30 Diverticulosis of large intestine without perforation or abscess without bleeding
CPT/HCPCS: 45380; 88305; J2001; J2704

== ENCOUNTER 2020-11-18 19:39 | Outpatient (CLI) | payer MEDICARE, SELFPAY ==
--- NOTE | 2020-11-18 14:57 | DI.RAD_ITS ---
EXAM: XR TIB/FIB LT CLINICAL HISTORY: Unexplained L leg pain, stress frx? M79.605 PAIN LT LEG. TECHNIQUE: 2D digital imaging was performed COMPARISON: No exams were available for comparison FINDINGS: BONES: No acute fracture is present. No bony destructive lesion is seen. Degenerative changes of the right knee. Visualized portion of ankle joints are unremarkable. SOFT TISSUE: Vascular calcifications. IMPRESSION: No acute abnormality. DATA REPOSITORY: RADIATION DOSE DELIVERED:
== END 2020-11-18 19:40 ==
LOC: DI 11-20 19:42
PROVIDERS: PCP Family Medicine; Visit Provider Family Medicine
DX: M79.605 Pain in left leg (principal)
CPT/HCPCS: 73590

== ENCOUNTER 2020-12-18 02:39 | Outpatient (CLI) | payer MEDICARE, SELFPAY ==
[2020-12-19 16:02] LABS: COVID-19 RT-PCR UVMMC Result Negative (Negative)
== END 2020-12-18 02:40 | disposition home or self-care (01) ==
PROVIDERS: PCP Family Medicine; Visit Provider Family Medicine
DX: Z20.822 Contact with and (suspected) exposure to COVID-19 (principal)
CPT/HCPCS: U0003

== ENCOUNTER 2020-12-22 02:16 | Outpatient (CLI) | payer MEDICARE, SELFPAY ==
--- NOTE | 2020-12-22 07:00 | DI.MRI_ITS ---
EXAM: MR LOWER EXTREMITY LT WO CLINICAL HISTORY: Unexplained LL leg pain, suspect stress fX,m79.605 TECHNIQUE: Multiplanar multisequence MRI was performed. COMPARISON: CR XR TIB/FIB LT from 11/18/2020 FINDINGS: MARROW:There is no evidence of fracture, bone contusion, nor avascular necrosis. There are no signif icant osseous lesions. However, there is some mild edema immediately anterior to the mid aspect of the tibia, consistent wit h stress reaction. However, there is no stress fracture in the tibia. No bone edema. MUSCLES: There is no evidence of abnormal signal nor mass in the visualized muscles. 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 In addition, t here is a 6 cm length Mcdowell cyst in the medial popliteal fossa which extends down adjacent to the med ial gastro cine medius. There is a minimal amount of increased joint fluid in the knee, partially in cluded in the field of view here. IMPRESSION: 1. Although the knee is not completely included in the field of view of this study, there does appear to be what is probably a medial meniscal tear a small amount of increased joint fluid and there is a 6 millimeter length septated Mcdowell's cyst extending down the upper thigh adjacent to the medial aric rocnemius muscle. 2. Anteriorly there is some increased signal immediately adjacent to the anterior cortex of the mid t ibia consistent with an element of stress reaction. However, there is no actual stress fracture of t he tibia evident. 3. No osseous lesions evident in the tibia and fibula. 4. No evidence of abnormal intramuscular signal to suggest myositis. No muscle atrophy. 5. Visualized Achilles tendon appears unremarkable. DATA REPOSITORY:
== END 2020-12-22 02:36 ==
PROVIDERS: PCP Family Medicine; Visit Provider Family Medicine
DX: M79.605 Pain in left leg (principal); M25.462 Effusion, left knee; M71.22 Synovial cyst of popliteal space [Baker], left knee; R60.0 Localized edema
CPT/HCPCS: 73718

== ENCOUNTER 2021-01-07 09:25 | Outpatient (CLI) | payer MEDICARE, SELFPAY ==
--- NOTE | 2021-01-07 14:45 | DI.RAD_ITS ---
EXAM: XR CHEST 2V PA LATERAL CLINICAL HISTORY: R/O Atypical pneumonia upper left lobe, SHORTNESS OF BREATH, R06.02. TECHNIQUE: 2D digital imaging was performed. COMPARISON: CR PORTABLE CHEST ONE VIEW from 01/02/2014 FINDINGS: Heart size is normal. The mediastinum is not widened. Lungs are clear. No infiltrates nor pleural effusions. IMPRESSION: No acute pulmonary findings. DATA REPOSITORY: RADIATION DOSE DELIVERED:
== END 2021-01-07 09:45 ==
PROVIDERS: PCP Family Medicine; Visit Provider Nurse Practitioner Family
DX: R06.02 Shortness of breath (principal)
CPT/HCPCS: 71046

== ENCOUNTER 2021-09-24 11:59 | Outpatient (REF) | payer MEDICARE, SELFPAY ==
[2021-09-25 17:11] LABS: COVID-19 RT-PCR UVMMC Result Negative (Negative)
== END 2021-09-24 12:00 | disposition home or self-care (01) ==
LOC: LBN 11:59
PROVIDERS: PCP Family Medicine; Visit Provider Physician Assistant Medical
DX: Z20.822 Contact with and (suspected) exposure to COVID-19 (principal)
CPT/HCPCS: U0003; U0005

== ENCOUNTER 2021-12-10 01:44 | Outpatient (CLI) | payer MEDICARE, SELFPAY ==
--- NOTE | 2021-12-10 06:30 | DI.RAD_ITS ---
Exam(s) XR SHOULDER RT COMPLETE 2+V EXAM: XR SHOULDER RT COMPLETE 2+V CLINICAL HISTORY: Possible rotator cuff tear,INJURY,PAIN,S49.90XA. TECHNIQUE: 2D digital imaging was performed. COMPARISON: No exams were available for comparison FINDINGS: Five views No evidence of fracture or dislocation. There is diminution of the subacromial space. There also ap pears to be an osteophytic ridge on the undersurface of the acromion, most probably the impingement c ulprit. Small calcification is noted adjacent to the superior aspect of the osseous glenoid. Mild degenerati ve changes in the AC joint. No ominous osseous lesions. Glenohumeral joint space itself exhibits no rmal with without significant narrowing. IMPRESSION: Significant narrowing of the subacromial space. This is probably associated with significant rotator cuff pathology. Osteophytic ridge noted on the undersurface of the acromion which is most probably cause of the impin gement which has resulted in probable rotator cuff pathology. If clinically indicated follow-up MRI can be performed. DATA REPOSITORY: RADIATION DOSE DELIVERED:
== END 2021-12-10 02:04 ==
PROVIDERS: PCP Family Medicine; Visit Provider Family Medicine
DX: M25.511 Pain in right shoulder; S49.80XA Other specified injuries of shoulder and upper arm, unspecified arm, initial encounter; M25.811 Other specified joint disorders, right shoulder; X58.XXXA Exposure to other specified factors, initial encounter
CPT/HCPCS: 73030

== ENCOUNTER → 2021-12-28 09:28 | Outpatient (BNVA) | payer MEDICARE, SELFPAY | PROVIDERS: PCP Family Medicine; Referring Provider Family Medicine; Visit Provider Nurse Practitioner Adult Health | DX: G62.89 Other specified polyneuropathies (principal); R73.03 Prediabetes; R20.0 Anesthesia of skin | CPT/HCPCS: 99213 ==

== ENCOUNTER 2022-01-15 09:50 | Emergency (ER) | payer MEDICARE, SELFPAY ==
[2022-01-15] VITALS (31 sets, daily range): BP systolic 110–154; BP diastolic 65–76; PULSE 48–67; RESP 11–18; TEMP 36.3–36.5; O2SAT 95–100
--- NOTE | 2022-01-15 09:45 | RT.EKG_ITS ---
APPROVED REPORT Exam: Resting ECG Reason for Exam: CHEST PAIN Patient Location: E HR:63 bpm ECG Measurements Heart Rate 63 AXIS IL 196 P 38 QRSd 85 QRS 4 QT 402 T 22 QTc 413 Conclusion Sinus rhythm...normal P axis, V-rate 60- 99. Sinus. Normal axis. No STEMI. I have reviewed and interpreted ECG and agree with software generated interpretation.
--- NOTE | 2022-01-15 10:00 | DI.RAD_ITS ---
Exam(s) XR CHEST 2V PA LATERAL EXAM: XR CHEST 2V PA LATERAL CLINICAL HISTORY: fatigue, r/o acute disease TECHNIQUE: 2D digital imaging was performed. COMPARISON: CR XR CHEST 2V PA LATERAL from 01/07/2021 FINDINGS: MEDIASTINUM: Normal. HEART: Normal. PULMONARY VASCULATURE: Normal. LUNGS: Clear. PLEURAL SPACE: No pleural effusion or pneumothorax. BONE:Unremarkable for age. IMPRESSION: No acute abnormality. DATA REPOSITORY: RADIATION DOSE DELIVERED:
--- NOTE | 2022-01-15 10:00 | ED.GENADUL_ITS ---
Discharge Plan Disposition Patient Disposition: HOME Condition: Stable Discharge Details Clinical Impression: Chest pain, Chronic fatigue, Chronic shortness of breath Primary Care Provider: Carlitos Savage ED Provider: Smiley Minaya Home Meds and New Rx's Prescriptions: Continued ibuprofen 800 mg tablet 800 mg PO DAILY 0RF dofetilide [Tikosyn] 500 mcg capsule 500 mcg PO BID Qty: 180 4RF rosuvastatin 20 mg tablet 20 mg PO DAILY Qty: 90 3RF terazosin 2 mg capsule 2 mg PO DAILY Qty: 90 3RF gabapentin 300 mg capsule 300 mg PO QHS Qty: 90 3RF lisinopril 40 mg tablet 40 mg PO DAILY Qty: 90 3RF metoprolol succinate 25 mg tablet extended release 24 hr 25 mg PO DAILY Qty: 90 3RF omeprazole 20 mg capsule,delayed release(DR/EC) 40 mg PO DAILY Qty: 180 3RF potassium chloride 10 mEq capsule, extended release 20 meq PO DAILY Qty: 60 11RF Xarelto 20 mg tablet 20 mg PO DAILY Qty: 30 11RF Benefiber Sugar Free (dextrin) 3 gram/4 gram powder in packet 1 packet PO DAILY Qty: 28 6RF Rx Instructions: mix into at least 4 oz water or juice before administering magnesium oxide 400 mg (241.3 mg magnesium) tablet 400 mg PO DAILY Qty: 90 3RF furosemide 20 mg tablet 20 mg PO DAILY Qty: 14 0RF fluticasone propionate 50 mcg/actuation spray,suspension 2 spray NIEVES DAILY 90 Days Qty: 48 4RF Rx Instructions: administer into each nostril acetaminophen [Tylenol] 325 mg tablet 650 mg PO Q6H PRNQty: 30 0RF Discharge Instructions Instructions: Chest Pain (ED), Dyspnea (ED), Fatigue (ED) Additional Instructions: Your lab work, EKG and imaging today is reassuring and shows no evidence of acute concerning or significant findings. Drink plenty of fluids and get plenty of rest. An order for an outpatient stress test has been placed. You will be contacted by the radiology department regarding scheduling of this test. Call your primary care doctor's office today or Tuesday morning to schedule a follow-up appointment for reevaluation and for referral for outpatient echocardiogram. Your tick and Lyme panel is pending. You will be notified once the results are available. Return immediately to the emergency department if you develop any worsening or new concerning symptoms. Discharge Data Discharge Date/Time-TO BE ENTERED AT DEPARTURE: 01/15/22 13:45 Discharge Physician: Smiley Minaya Medical Decision Making 76-year-old male with a history of hypertension, hyperlipidemia, atrial fibrillation on Xarelto, sleep apnea who presents for chronic fatigue and dyspnea on exertion over the past month with several episodes of chest pain yesterday. He received his second COVID booster yesterday. He is currently asymptomatic. Vitals within normal limits. EKG notes a rate of 63, sinus, normal axis, no STEMI and nondiagnostic. Patient appears comfortable and non-toxic. Differential diagnosis includes poor sleep pattern, dehydration, electrolyte abnormality, expected postvaccine course, Lyme disease, ACS. History and presentation does not appear consistent with CVA, PE, dissection or UTI. We will place an IV, bolus IV fluids, Toradol, screening labs, chest x-ray and plan for repeat troponin and EKG. Labs and imaging reviewed and unremarkable. Patient had a negative initial and delta troponin and 2 unremarkable EKGs. Chest x-ray negative. Patient reassessed and he remains asymptomatic. Patient feels comfortable going home. An order for an outpatient stress test has been placed. Patient advised to call his PCP for follow-up and for referral for outpatient echocardiogram. Patient advised to drink plenty of fluids, get plenty of rest and take tylenol as needed for pain. Medical Records Medical records reviewed: Yes I reviewed the patient's medical records. Imaging Data Radiologic Study: Radiologist's impression: XR CHEST 2V PA ? LATERAL CLINICAL HISTORY:? fatigue, r/o acute disease TECHNIQUE:? 2D digital imaging was performed. COMPARISON:? CR XR CHEST 2V PA ? LATERAL from 01/07/2021 FINDINGS: MEDIASTINUM: Normal.? HEART: Normal. PULMONARY VASCULATURE: Normal. LUNGS: Clear. ? PLEURAL SPACE: No pleural effusion or pneumothorax. BONE:Unremarkable for age.? IMPRESSION: No acute abnormality.? Lab Data Lab results reviewed: Yes I reviewed the patient's lab results. Labs: Laboratory Tests Range/Units 01/15/22 01/15/22 01/15/22 10:01 10:01 10:01 WBC (4.4-10.8) 10^3/uL 6.89 RBC (4.36-5.78) 10^6/uL 4.73 Hgb (13.5-17.5) g/dL 15.1 Hct (40.0-50.0) % 44.0 MCV (80-95) fL 93.0 MCH (27.0-33.0) pg 31.9 MCHC (32.0-36.0) % 34.3 RDW (11.8-14.1) % 12.3 Plt Count (130-400) 10^3/uL 196 MPV (8.0-11.0) fL 9.6 Immature Gran % 0.3 Neutrophils % 64.3 Lymphocytes % 19.0 Monocytes % 10.0 Eosinophils % 6.1 Basophils % 0.3 Nucleated RBC % (0.0-0.3) % 0.0 Absolute Neutrophils (1.2-6.7) 10^3/uL 4.43 Absolute Lymphocytes (1.2-3.4) 10^3/uL 1.31 Absolute Monocytes (0.1-0.8) 10^3/uL 0.69 Absolute Eosinophils (0.0-0.7) 10^3/uL 0.42 Absolute Basophils (0.0-0.2) 10^3/uL 0.02 PT (9.3-11.0) sec 12.9 H INR (0.9-1.1) 1.3 H APTT (21.0-27.5) sec 28.3 H Sodium (136-145) mmol/L 139 Potassium (3.5-5.1) mmol/L 4.2 Chloride (98-107) mmol/L 105 Carbon Dioxide (21.0-32.0) mmol/L 29.2 Anion Gap (3-11) mmol/L 4.8 BUN (7-18) mg/dL 16 Creatinine (0.70-1.30) mg/dL 1.2 Estimated GFR/1.73 m2 (mL/min/1.73m2) 59.02 Glucose (74-106) mg/dL 115 H Calcium (8.5-10.1) mg/dL 8.8 Magnesium (1.8-2.4) mg/dL 1.9 Total Bilirubin (0.2-1.0) mg/dL 0.6 AST (15-37) U/L 16 ALT (16-63) U/L 33 Alkaline Phosphatase (46-116) U/L 55 Troponin I (<or=60) ng/L < 50 Total Protein (6.4-8.2) g/dL 6.8 Albumin (3.4-5.0) g/dL 3.8 Range/Units 01/15/22 12:55 WBC (4.4-10.8) 10^3/uL RBC (4.36-5.78) 10^6/uL Hgb (13.5-17.5) g/dL Hct (40.0-50.0) % MCV (80-95) fL MCH (27.0-33.0) pg MCHC (32.0-36.0) % RDW (11.8-14.1) % Plt Count (130-400) 10^3/uL MPV (8.0-11.0) fL Immature Gran % Neutrophils % Lymphocytes % Monocytes % Eosinophils % Basophils % Nucleated RBC % (0.0-0.3) % Absolute Neutrophils (1.2-6.7) 10^3/uL Absolute Lymphocytes (1.2-3.4) 10^3/uL Absolute Monocytes (0.1-0.8) 10^3/uL Absolute Eosinophils (0.0-0.7) 10^3/uL Absolute Basophils (0.0-0.2) 10^3/uL PT (9.3-11.0) sec INR (0.9-1.1) APTT (21.0-27.5) sec Sodium (136-145) mmol/L Potassium (3.5-5.1) mmol/L Chloride (98-107) mmol/L Carbon Dioxide (21.0-32.0) mmol/L Anion Gap (3-11) mmol/L BUN (7-18) mg/dL Creatinine (0.70-1.30) mg/dL Estimated GFR/1.73 m2 (mL/min/1.73m2) Glucose (74-106) mg/dL Calcium (8.5-10.1) mg/dL Magnesium (1.8-2.4) mg/dL Total Bilirubin (0.2-1.0) mg/dL AST (15-37) U/L ALT (16-63) U/L Alkaline Phosphatase (46-116) U/L Troponin I (<or=60) ng/L < 50 Total Protein (6.4-8.2) g/dL Albumin (3.4-5.0) g/dL ECG Data Attestation: I personally reviewed and interpreted this ECG (s) as follows: Interpretation: #1 -- rate of 63, normal axis, sinus, no STEMI. #2 -- rate of 59, sinus, no STEMI. HPI General Mode of arrival: ambulatory . Date/Time Provider Initiated Documentation: 01/15/22 09:59 . Limitations to Documentation: no limitations . Information obtained by: patient . HPI Narrative: Patient is a 76-year-old male with a history of hypertension, atrial fibrillation on Xarelto, hyperlipidemia, who presents with fatigue and dyspnea on exertion for the past month and several episodes of chest pain since yesterday. Patient states he has sleep apnea and uses a CPAP at night but states he feels generally does not sleep well. He states that last night he felt anterior chest tightness while walking up the stairs and states today he has had several episodes while sitting and reading. He denies any chest pain at present. He denies any fever, cough, nausea, vomiting or dizziness. He is unaware of any recent tick bite. He states he has never been diagnosed with Lyme disease. He states [facility]. Related Data Home Medications Medication Instructions Recorded Confirmed acetaminophen 325 mg tablet 650 mg PO Q6H PRN #30 tab 04/02/20 01/15/22 (Tylenol) dofetilide 500 mcg capsule 500 mcg PO BID #180 tab-cap 08/17/21 01/15/22 (Tikosyn) rosuvastatin 20 mg tablet 20 mg PO DAILY #90 tab 08/17/21 01/15/22 terazosin 2 mg capsule 2 mg PO DAILY #90 tab-cap 08/17/21 01/15/22 gabapentin 300 mg capsule 300 mg PO QHS #90 cap 08/25/21 01/15/22 lisinopril 40 mg tablet 40 mg PO DAILY #90 tab 08/25/21 01/15/22 metoprolol succinate 25 mg 25 mg PO DAILY #90 tab 08/25/21 01/15/22 tablet,extended release 24 hr omeprazole 20 mg capsule,delayed 40 mg PO DAILY #180 tab-cap 08/25/21 01/15/22 release potassium chloride 10 mEq 20 meq PO DAILY #60 tab-cap 08/25/21 01/15/22 capsule,extended release rivaroxaban 20 mg tablet (Xarelto) 20 mg PO DAILY #30 tab-cap 08/25/21 01/15/22 wheat dextrin 3 gram/4 gram oral 1 packet PO DAILY #28 ea 08/25/21 01/15/22 powder packet (Benefiber Sugar Free (dextrin)) magnesium oxide 400 mg (241.3 mg 400 mg PO DAILY #90 tab 09/14/21 01/15/22 magnesium) tablet furosemide 20 mg tablet 20 mg PO DAILY #14 tab 11/27/21 01/15/22 fluticasone propionate 50 2 spray NIEVES DAILY 90 Days #48 ml 12/01/21 01/15/22 mcg/actuation nasal spray,suspension ibuprofen 800 mg tablet 800 mg PO DAILY tab 12/07/21 01/15/22 Previous Rx's Medication Instructions Recorded acetaminophen 325 mg tablet 650 mg PO Q6H PRN #30 tab 04/02/20 (Tylenol) dofetilide 500 mcg capsule 500 mcg PO BID #180 tab-cap 08/17/21 (Tikosyn) rosuvastatin 20 mg tablet 20 mg PO DAILY #90 tab 08/17/21 terazosin 2 mg capsule 2 mg PO DAILY #90 tab-cap 08/17/21 gabapentin 300 mg capsule 300 mg PO QHS #90 cap 08/25/21 lisinopril 40 mg tablet 40 mg PO DAILY #90 tab 08/25/21 metoprolol succinate 25 mg 25 mg PO DAILY #90 tab 08/25/21 tablet,extended release 24 hr omeprazole 20 mg capsule,delayed 40 mg PO DAILY #180 tab-cap 08/25/21 release potassium chloride 10 mEq 20 meq PO DAILY #60 tab-cap 08/25/21 capsule,extended release rivaroxaban 20 mg tablet (Xarelto) 20 mg PO DAILY #30 tab-cap 08/25/21 wheat dextrin 3 gram/4 gram oral 1 packet PO DAILY #28 ea 08/25/21 powder packet (Benefiber Sugar Free (dextrin)) magnesium oxide 400 mg (241.3 mg 400 mg PO DAILY #90 tab 09/14/21 magnesium) tablet furosemide 20 mg tablet 20 mg PO DAILY #14 tab 03/04/22 fluticasone propionate 50 2 spray NIEVES DAILY 90 Days #48 ml 12/01/21 mcg/actuation nasal spray,suspension Allergies Allergy/AdvReac Type Severity Reaction Status Date / Time sildenafil AdvReac Intermediate FLUSHING Verified 01/15/22 10:00 simvastatin AdvReac Intermediate Severe Verified 01/15/22 10:00 myalgias General Stated Complaint: Chest Pain GUS: 2 Review of Systems All systems reviewed & are unremarkable except as noted in HPI and below Constitutional Constitutional: Denies chills, Denies excessive sweating, Denies fatigue, Denies fever(s), Denies weakness and Denies weight loss Eyes Eyes: Reports system reviewed and no additional complaints, except as documented and Denies blurry vision ENT Ears, Nose, Mouth, and Throat: Denies vertigo, Denies dizziness, Denies otalgia, Denies nasal congestion, Denies sore throat and Denies throat swelling Cardiovascular Cardiovascular: Reports chest pain, Denies syncope, Denies rapid heart rate and Reports dyspnea Respiratory Respiratory: Denies chest congestion, Denies cough, Denies pain on inspiration and Reports dyspnea Gastrointestinal Gastrointestinal: Denies abdominal pain, Denies diarrhea and Denies vomiting Genitourinary Genitourinary: Denies hematuria, Denies dysuria and Denies flank pain Musculoskeletal Musculoskeletal: Denies back pain and Denies joint swelling Integumentary/Breasts Skin/Breast: Denies lesions and Denies rash Neurologic Neurologic: Denies behavioral changes, Denies confusion, Denies vertigo, Denies dizziness, Denies syncope, Denies localized weakness and Denies weakness Psychiatric Psychiatric: Denies behavioral changes, Denies confusion and Denies depression Endocrine Endocrine: Denies excessive sweating and Denies fatigue Hematologic/Lymphatic Hematologic/Lymphatic: Denies easy bruising and Denies lymphadenopathy Allergic/Immunologic Allergic/Immunologic: Denies throat swelling PFSH All Active Problems (Updated 01/15/22 @ 13:41 by Smiley Minaya DO) Chest pain (Acute) Chronic fatigue (Acute) Chronic shortness of breath (Acute) Bilateral hand numbness (Acute) Shoulder injury (Acute) Shortness of breath (Acute) Hyperplastic colon polyp (Acute) Sessile colonic polyp (Acute) Non-alcoholic fatty liver disease (Acute) Abdominal tenderness, RUQ (right upper quadrant) (Acute) on exam, on top of bloating, diarrhea Diarrhea of presumed infectious origin (Acute) History of parasitic infection (Acute) [facility] (Chronic) Anticoagulated on warfarin (Acute) A-fib; goal 2-3 Atrial fibrillation (Acute 02/12/14) BPH w urinary obs/LUTS (Acute 06/22/16) Bursitis of both shoulders (Acute 04/13/18) Current use of halfway anticoagulation (Acute 11/27/15) Drug-induced polyneuropathy (Acute 06/22/16) 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 denies Hyperlipidemia (Acute) Peripheral edema (Acute) retirement current use of antiarrhythmic drug (Chronic) Adequate anticoagulation on anticoagulant therapy (Chronic) Atrial fibrillation (Chronic) F/U with Dr. Pang last seen 2 months ago. Per pt. a-fib has been under control for a while with Tikosyn. New onset atrial fibrillation (Chronic 01/03/14) Syncopal episodes (Chronic 01/03/14) Irritable bowel syndrome (Chronic) a. recurrent diarrhea. b. controlled with oral dicyclomine occasionally. Diverticulitis (Chronic 12/31/13) a. diagnosed empirically 12/31/2013, started on Cipro and Flagyl. b. Presented 01/01/14 to the emergency room with worsening abdominal pain. Abdominal pelvic CT scan did not show any significant abnormality. Flagyl was stopped. Continued on Cipro. Gastroesophageal reflux disease (Chronic) a. chronic PPI therapy. Hypertension (Chronic) Decreased hearing (Chronic) right arm dysfunction (Chronic) a. Fall from a horse years ago.--Pt. denies this 03/27/20 Colonic polyp (Chronic) a. status post colonoscopy December 2012. b. complicated by question of a perforation. Admitted for observation x4 days. Discharged on Augmentin. c. surgical pathology apparently benign, not currently available. Hypercholesterolemia (Chronic) a. question intolerance to simvastatin because of myalgias, currently off medications. Medical History History of umbilical hernia Pre-diabetes Sleep apnea uses CPAP Surgical History EGD - MAC (08/20/14) H/O colonoscopy (~2012) History of esophagogastroduodenoscopy History of umbilical hernia repair (~04/02/20) Open Carpal Tunnel release x2 Status post carpal tunnel release Status post vasectomy Vasectomy Family History Mother Osteoporosis Heart disease Father Heart disease Brother Heart disease Grandfather No problems noted. Grandfather Heart disease Grandmother Heart disease Grandmother Heart disease Daughter No problems noted. Son No problems noted. 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, [employer] Sexually active: Yes Do you think of yourself as: lesbian/barcenas/homosexual Current gender identity: male What is your relationship status?: living with partner Panel score (0-1 are the most socially isolated patients): 1 What type of physical activity do you participate in: walking Duration: 30-45 minutes/day Frequency: 3-4 times per week Working smoke detector in home: Yes Fire extinguisher in home: Yes Carbon monox detector in home: Yes Do you feel safe at home: Yes Do you feel safe in your relationship?: Yes Exam Const General: cooperative, healthy appearing and no acute distress Orientation: alert, awake and oriented x3 HENMT Head: normal to inspection Ears: hearing grossly normal bilaterally, external ears normal and TM's normal bilaterally General nose exam: external nose normal Face and sinus: normal facial exam Mouth: oral mucosae normal Teeth and gingiva: dentition normal Throat: posterior oropharynx normal Eyes General: appearance normal, both eyes and all related structures Eyelids: eyelids normal Pupils: PERRL EOM: EOM intact bilaterally Neck Neck: normal visual inspection Lymphatic: no lymphadenopathy noted Chest Chest: normal inspection of the chest Resp Effort & Inspection: normal respiratory effort and able to speak in complete sentences Auscultation: clear to auscultation bilaterally Cardio Rate: regular rate Rhythm: regular rhythm GI Inspection: normal to inspection Palpation: soft, not firm, no guarding, no hepatosplenomegaly, no masses and nontender Auscultation: normal bowel sounds Back/Spine/Pelvis Back: no CVA tenderness Skin General skin exam: no rashes or lesions noted Neuro General: patient alert and patient awake Cognition: normal cognition Speech: speech normal Gait: normal gait Motor: muscle tone normal throughout Sensory Exam: no sensory deficits noted Extrem General: normal to inspection, full ROM, capillary refill normal and no edema Psych Appearance: grossly normal Mental Status: mental status grossly normal Speech and Movement: speech and movement normal Affect: normal affect Thought Process: normal Course Vital Signs Vital signs: Vital Signs Temperature 97.3 F L 01/15/22 09:56 Pulse 66 01/15/22 09:56 Respiratory Rate 16 01/15/22 09:56 Blood Pressure 154/72 H 01/15/22 09:56 Pulse Oximetry 98 01/15/22 09:56 Temperature 97.3 F L 01/15/22 09:56 Temperature Source Skin 01/15/22 09:56 Pulse 66 01/15/22 09:56 Respiratory Rate 16 01/15/22 09:56 Respiratory Effort 01/15/22 09:56 Blood Pressure 154/72 H 01/15/22 09:56 Blood Pressure Position Supine 01/15/22 09:56 Pulse Oximetry 98 01/15/22 09:56 Pain Level 7 01/15/22 09:56
[2022-01-15 10:16] LABS: Abs Immature Grans 0.02 10^3/uL (0.0-0.06); Absolute Basophil Count 0.02 10^3/uL (0.0-0.2); Absolute Eosinophil Count 0.42 10^3/uL (0.0-0.7); Absolute Lymphocyte Count 1.31 10^3/uL (1.2-3.4); Absolute Monocyte Count 0.69 10^3/uL (0.1-0.8); Absolute Neutrophil Count 4.43 10^3/uL (1.2-6.7); Basophils % 0.3; Eosinophils % 6.1; HGB 15.1 g/dL (13.5-17.5); Immature Grans % 0.3; MCH 31.9 pg (27.0-33.0); MCHC 34.3 % (32.0-36.0); MPV 9.6 fL (8.0-11.0); Neutrophils % 64.3; Platelet Count 196 10^3/uL (130-400); RBC 4.73 10^6/uL (4.36-5.78); RDW 12.3 % (11.8-14.1); RDW-SD 42.6 fL; WBC 6.89 10^3/uL (4.4-10.8)
[2022-01-15 10:29] LABS: INR 1.3 (0.9-1.1); PTT Activated 28.3 sec (21.0-27.5); Prothrombin Time 12.9 sec (9.3-11.0)
[2022-01-15 10:31] LABS: ALT 33 U/L (16-63); AST 16 U/L (15-37); Albumin 3.8 g/dL (3.4-5.0); Alkaline Phosphatase 55 U/L (46-116); Anion Gap 4.8 mmol/L (3-11); BUN 16 mg/dL (7-18); Bilirubin, Total 0.6 mg/dL (0.2-1.0); CO2 29.2 mmol/L (21.0-32.0); CREATININE 1.2 mg/dL (0.70-1.30); Calcium 8.8 mg/dL (8.5-10.1); Chloride 105 mmol/L (98-107); Estimated GFR 59.02 (mL/min/1.73m2); Glucose 115 mg/dL (74-106); Magnesium 1.9 mg/dL (1.8-2.4); Potassium 4.2 mmol/L (3.5-5.1); Sodium 139 mmol/L (136-145); Total Protein 6.8 g/dL (6.4-8.2); Troponin I < 50 ng/L (<or=60)
[2022-01-15] MEDS: Normal Saline 500 ML IV (11:25)
--- NOTE | 2022-01-15 13:00 | RT.EKG_ITS ---
APPROVED REPORT Exam: Resting ECG Reason for Exam: chest pain Patient Location: E HR:59 bpm ECG Measurements Heart Rate 59 AXIS MD 207 P 46 QRSd 81 QRS 1 QT 421 T 18 QTc 419 Conclusion Sinus bradycardia...rate< 60. Sinus. No STEMI. I have reviewed and interpreted ECG and agree with software generated interpretation.
[2022-01-15 13:16] LABS: Troponin I < 50 ng/L (<or=60)
[2022-01-17 12:55] LABS: Anaplasma phagocytophilum Negative (Negative); B. miyamotoi PCR Negative (Negative); Babesia divergens/MO-1 Negative (Negative); Babesia duncani Negative (Negative); Babesia microti Negative (Negative); Ehrlichia chaffeensis Negative (Negative); Ehrlichia ewingii/canis Negative (Negative); Ehrlichia muris eauclairensis Negative (Negative)
[2022-01-18 10:44] LABS: Lyme Ab w Rflx to Lyme Confirm Negative (Negative)
== END 2022-01-15 13:45 | disposition home or self-care (01) ==
PROVIDERS: Emergency Provider Physician Assistant; PCP Family Medicine
DX: R07.9 Chest pain, unspecified (principal); R06.02 Shortness of breath; R53.82 Chronic fatigue, unspecified
CPT/HCPCS: 36415; 80053; 87798; 93005; 96360; 99284; 71046; 83735; 84484; 85025; 85610; 85730; 86618; 93010

== ENCOUNTER → 2022-01-20 08:01 | Outpatient (BNVA) | payer MEDICARE, SELFPAY | PROVIDERS: PCP Family Medicine; Referring Provider Family Medicine; Visit Provider Student in an Organized Health Care Education/Training Program | DX: M75.21 Bicipital tendinitis, right shoulder (principal); M75.51 Bursitis of right shoulder; M75.101 Unspecified rotator cuff tear or rupture of right shoulder, not specified as traumatic; M12.811 Other specific arthropathies, not elsewhere classified, right shoulder | CPT/HCPCS: 20610; 99214; J1030 ==

== ENCOUNTER 2022-01-22 01:57 | Outpatient (CLI) | payer MEDICARE, SELFPAY ==
[2022-01-22 13:09] LABS: TSH (W/Ref FT4) 1.01 uIU/mL (0.36-3.74); Vitamin B12 357 pg/mL (193-986)
== END 2022-01-22 01:58 | disposition home or self-care (01) ==
LOC: LBO 01:57
PROVIDERS: PCP Family Medicine; Visit Provider Family Medicine
DX: R53.82 Chronic fatigue, unspecified (principal); E53.8 Deficiency of other specified B group vitamins
CPT/HCPCS: 36415; 82607; 84443

== ENCOUNTER → 2022-02-01 | Outpatient (CLI) | payer MEDICARE, SELFPAY ==
--- NOTE | 2022-02-01 08:45 | DI.NM_ITS ---
APPROVED REPORT Exam: Pharmacologic Patient Location: Out-Patient Room/Bed: Stress Nurse: Kylie Fernandez RN Ordering Provider:ALFREDO EDOUARD, Contact Number: [phone] BMI: 32.71 Baseline Rhythm: Sinus Rhythm Indications: chest discomfort on/off Medical History Medical History: Afib w/ cardioversions, HTN, HLD, ROB w/ cpap, Non-etoh fatty liver, Pre DM Cardiac Medications: Dofetilide, Xarelto, Rosuvastatin, Terazosin, Lisinopril, Metoprolol Succinate, K+C;, Furosemide, Fluticasone, Rivaroxaban, Nitro Allergies: Sildenafil, Simvastatin Cardiac Risk Factors: Family history, HTN, HLD, pre DM, Obesity Previous Cardiac Procedures: Cardioversion x3 for afib Pretest Chest Pain Characteristics: None Exercise History: Sedentary Physical Disabilities: None Lung Sounds: Clear Heart Sounds: Regular Stress Test Details Test: Exercise stress testing was performed using a Aramis protocol. Nuclear Acquisition: Rest Tc-99m/Stress Tc-99m 1 day Rest Isotope: Tc-99m Sestamibi. Dose: 11.2 Date: 02/01/2022 Injection Time: 08:40 Stress Isotope: Tc-99m Sestamibi. Dose: 37.3 Date: 02/01/2022 Injection Time: 10:25 HR Resting HR Supine: 56 bpm Max Heart Rate (APMHR): 145.157116 bpm Resting HR Standin bpm Target HR (85% APMHR): 123.056521 bpm Max HR Achieved: 141 bpm % of APMHR: 97.24 Recovery HR: 76 bpm HR response to stress: Normal HR response to stress BP Resting BP Supine: 144/64 mmHg Resting BP Standin/64 mmHg Max BP: 204/78 mmHg Recovery BP: 148/70 mmHg BP response to stress: Normal blood pressure response to stress. ECG Resting ECG: Sinus Rhythm Ectopy: None Stress ECG: Sinus Tachycardia ST Change: No significant ST segment changes noted Arrhythmia: Intermittent PVC Recovery ECG: Sinus Rhythm Recovery ST Change: Downsloping ST depression Lead(s): II, inferior leads Recovery ST Deviation: 0.5-1 mm Comment: Frequent PAC's Clinical Reason for Termination: Fatigue, Dyspnea Stress Symptoms: General Fatigue, Dyspnea Exercise duration: 5 min6 sec Highest Stage Reached: Stage 2: 2.5 mph at 12% grade. Exercise capacity: 7.05 METs Angina Score: None Schultz Treadmill Score: 4.3 Rate Pressure Product: [id number] Stress ECG Conclusion 1. The resting electrocardiogram showed voltage for left ventricular hypertrophy 2. Patient exercised on the Aramis protocol and completed a workload of 7.05 METS, stopping due to fat igue 3. Normal heart rate and blood pressure response to exercise. Patient achieved 97% of predicted hear t rate for age 4. At peak exercise there was no electrocardiographic evidence of myocardial ischemia 5. In recovery there was [address] depression noted in the inferior and anterolateral leads , not diagnostic for ischemia 6. PVCs were noted 7. See MPI report Schultz Treadmill Score is 4.3 which is Moderate risk. Stress Test Summary STAGE Time (mins) Speed (mph) Grade (%) HR BP SYMPTOMS METS Supine 56 144/64 Standing 68 140/64 1 3 1.7 10 128 162/70 4.6 1 min recovery 122 204/78 3 min recovery 88 186/68 6 min recovery 78 148/70 MPI Conclusion Myocardial perfusion is normal without evidence of ischemia or prior infarction EF 55% Radiologist Interpretation Radiologist agrees with [employer]'s Interpretation. Radiologist Interpretation by: Ratna Jones MD Interpretation Date/Time: 02/01/2022 17:15:43
== END ==
PROVIDERS: PCP Family Medicine; Visit Provider Family Medicine
DX: R07.9 Chest pain, unspecified (principal)
CPT/HCPCS: 78452; 93016; 93018; 93017

== ENCOUNTER → 2022-11-17 12:56 | Outpatient (BNVA) | payer MEDICARE, SELFPAY | PROVIDERS: PCP Family Medicine; Referring Provider Family Medicine; Visit Provider Physical Therapy Assistant | DX: Z12.11 Encounter for screening for malignant neoplasm of colon (principal); Z86.010 Personal history of colon polyps; I48.91 Unspecified atrial fibrillation; Z79.01 Long term (current) use of anticoagulants ==

== ENCOUNTER 2022-11-22 10:55 | Outpatient (CLI) | payer MEDICARE, SELFPAY ==
--- NOTE | 2022-11-22 10:45 | RT.EKG_ITS ---
APPROVED REPORT Exam: Resting ECG Reason for Exam: afib Patient Location: O HR:54 bpm ECG Measurements Heart Rate 54 AXIS LA 196 P 25 QRSd 104 QRS -5 QT 412 T 19 QTc 391 Conclusion Sinus rhythm...normal P axis, V-rate 50- 99 Abnormal R-wave progression, early transition...QRS area>0 in V2
== END 2022-11-22 10:56 | disposition home or self-care (01) ==
LOC: DI.CARD 10:56
PROVIDERS: PCP Family Medicine; Visit Provider Internal Medicine Cardiovascular Disease
DX: I48.91 Unspecified atrial fibrillation (principal)
CPT/HCPCS: 93010

== ENCOUNTER → 2022-11-22 11:02 | Outpatient (BNVA) | payer MEDICARE, SELFPAY | PROVIDERS: PCP Family Medicine; Referring Provider Family Medicine; Visit Provider Internal Medicine Cardiovascular Disease | DX: I48.0 Paroxysmal atrial fibrillation (principal); Z79.01 Long term (current) use of anticoagulants | CPT/HCPCS: 93005; 99202; 99214 ==

== ENCOUNTER → 2022-12-16 10:00 | Outpatient (BNVA) | payer MEDICARE, SELFPAY | PROVIDERS: PCP Family Medicine; Referring Provider Family Medicine; Visit Provider Physical Therapy Assistant | DX: Z01.818 Encounter for other preprocedural examination (principal); K21.9 Gastro-esophageal reflux disease without esophagitis; Z86.010 Personal history of colon polyps; M79.89 Other specified soft tissue disorders ==

== ENCOUNTER → 2022-12-28 08:58 | Outpatient (BNVA) | payer MEDICARE, SELFPAY | PROVIDERS: PCP Family Medicine; Referring Provider Family Medicine; Visit Provider Nurse Practitioner Adult Health | DX: G62.9 Polyneuropathy, unspecified (principal); R73.03 Prediabetes | CPT/HCPCS: 99213 ==

== ENCOUNTER 2023-01-04 00:21 | Outpatient (CLI) | payer MEDICARE, SELFPAY ==
--- NOTE | 2023-01-04 07:00 | DI.CT_ITS ---
Exam(s) CT NECK W EXAM: CT NECK W INDICATION: Soft tissue mass left lateral base of neck,m79.89. COMPARISON: No exams were available for comparison TECHNIQUE: FINDINGS: SKIN MARKER: There is a single skin marker which is on the left side of the lower neck. There is no abnormal focal finding immediately subjacent to this marker. No asymmetric subcutaneous findings nor deeper mass at this level. VISUALIZED PARANASAL SINUSES: There is a retention cyst in the left maxillary sinus which measures 2 cm AP 1.5 cm wide, not associated with a fluid level. Sphenoid sinuses are clear. Visualized fronta l sinuses are clear. Ethmoidal air cells are clear. Mastoid air cells are clear. NASOPHARYNX: Unremarkable ORODENTAL: Unremarkable. OROPHARYNX: Unremarkable. No masses evident. Right pharyngeal calcified tonsillith noted. No evide nce of tonsillar abscess. HYPOPHARYNX: Unremarkable. Valleculae and epiglottis and aryepiglottic folds appear normal. VOCAL CORDS: Unremarkable. No masses evident. Subglottic airway appears unremarkable. THYROID GLAND: Unremarkable. Normal size and no obvious nodules. SALIVARY GLANDS: Unremarkable. No significant findings in the parotid and submandibular glands. LYMPH NODES: No gross lymphadenopathy in the neck and supraclavicular regions. OTHER: Multilevel chronic degenerative disc disease in the cervical spine. VISUALIZED LUNG APICES: No significant findings. IMPRESSION: 1. No significant findings in left-sided neck subjacent to the solitary skin marker. 2. No significant masses nor lymphadenopathy in the soft tissues of the neck. 3. Retention cyst is noted in the floor of the left maxillary sinus. This measures 2 cm x 1.5 cm by 1.2 cm and is not associated with a fluid level. RADIATION DOSE DELIVERED: 465.92mGy.cm Total DLP DATA REPOSITORY: All CT scans at this facility are submitted to the National Radiology Data Registry (NRDR) Dose Index Registry (DIR) with the [employer] ([employer]). RADIATION OPTIMIZATION: All CT scans at this facility use at least one of these dose optimization te chniques: automated exposure control; mA and/or kV adjustment per patient size (includes targeted exa ms where dose is matched to clinical indication); or iterative reconstruction.
[2023-01-04 08:55] LABS: CREATININE 1.1 mg/dL (0.70-1.30); Estimated GFR 69.57 (mL/min/1.73m2)
[2023-01-04] MEDS: Omnipaque 350 MG/ML 100 ML BTL IJ (09:28)
[2023-01-04] MEDS: Normal Saline - Diluent 50 ML VIAL IJ (09:29)
== END 2023-01-04 00:41 ==
LOC: DI 00:21
PROVIDERS: PCP Family Medicine; Visit Provider Physical Therapy Assistant
DX: J34.1 Cyst and mucocele of nose and nasal sinus (principal); M79.89 Other specified soft tissue disorders
CPT/HCPCS: 70491; 82565; J3490

== ENCOUNTER 2023-01-10 06:17 | Day surgery (SDC) | payer MEDICARE, SELFPAY ==
--- NOTE | 2023-01-09 20:28 | W.PM.DSUDISC ---
Date of service: 01/10/23 Time of Service: 08:23 Discharge Plan Disposition Patient Disposition: Home Condition: Good Discharge Details Reason For Visit: Screening colonoscopy and EGD Attending Provider: Shaun Zhang Primary Care Provider: Carlitos Savage Home Meds and New Rx's Prescriptions: Continued cholecalciferol (vitamin D3) 25 mcg (1,000 unit) capsule 25 mcg PO DAILY cyanocobalamin (vitamin B-12) 5,000 mcg capsule 5,000 mcg PO DAILY nitroglycerin 0.4 mg tablet, sublingual 0.4 mg sublingual Q5M PRN (Reason: chest pain) Qty: 30 0RF Rx Instructions: do not exceed 3 doses per episode sertraline 50 mg tablet 50 mg PO DAILY Qty: 60 1RF omeprazole 20 mg capsule,delayed release(DR/EC) 40 mg PO DAILY fluticasone propionate 50 mcg/actuation spray,suspension 2 spray NIEVES DAILY 90 Days Qty: 48 4RF Rx Instructions: administer into each nostril dofetilide [Tikosyn] 500 mcg capsule 500 mcg PO BID Qty: 180 4RF furosemide 20 mg tablet 20 mg PO DAILY Qty: 90 3RF gabapentin 300 mg capsule 300 mg PO QHS Qty: 90 3RF lisinopril 40 mg tablet 40 mg PO DAILY Qty: 90 3RF magnesium oxide 400 mg (241.3 mg magnesium) tablet 400 mg PO DAILY Qty: 90 3RF metoprolol succinate 25 mg tablet extended release 24 hr 25 mg PO DAILY Qty: 90 3RF potassium chloride 10 mEq capsule, extended release 20 meq PO DAILY Qty: 60 11RF rosuvastatin 20 mg tablet 20 mg PO DAILY Qty: 90 3RF terazosin 2 mg capsule 2 mg PO DAILY Qty: 90 3RF Benefiber Sugar Free (dextrin) 3 gram/4 gram powder in packet 1 packet PO DAILY Qty: 28 6RF Rx Instructions: mix into at least 4 oz water or juice before administering acetaminophen [Tylenol] 325 mg tablet 650 mg PO Q6H PRNQty: 30 0RF metoprolol succinate 25 mg Tablet Extended Release 24 Hr 25 mg PO sertraline 50 mg tablet 50 mg PO DAILY Patient Comments: TAKE ONE TABLET BY MOUTH EVERY DAY Held Xarelto 20 mg tablet 20 mg PO DAILY Qty: 30 11RF Hold Instructions: Resume on 01/11/23. Xarelto 20 mg Tablet 20 mg PO DAILY Hold Instructions: Resume on 01/11/23. Rx Instructions: must administer with evening meal Discontinued bisacodyl [Dulcolax (bisacodyl)] 5 mg tablet,delayed release (DR/EC) 5 mg PO ONCE Qty: 4 0RF Rx Instructions: take per colonoscopy instructions polyethylene glycol 3350 17 gram/dose powder 238 g PO ONCE Qty: 238 0RF Rx Instructions: take per colonoscopy instructions No Action nitroglycerin 0.4 mg tablet, sublingual Patient Comments: TAKE 1 TABLET EVERY DAY AT 5AM NEEDED FOR CHEST PAIN; DO NOT EXCEED 3 DOSES PER EPISODE Discharge Instructions Instructions: Gongora Esophagus (GEN), Diverticulosis (GEN), Diverticulosis Diet (GEN), Colorectal Polyps (GEN) Additional Instructions: Migel we were able to complete your endoscopies today without any difficulty. 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 There is nothing that needs to be done for this. They can be a source of bleeding, but based on their appearance, I do not see any signs of that at this point. There is also some signs of Gongora's esophagus. I performed some biopsies of multiple portions of the stomach. When I have the results, I will be in touch with regards to future endoscopies if needed. Your colonoscopy showed some mild rare diverticulosis. I have attached some information here regarding that, as well as the general management of diverticulosis. I found 1 polyp. I removed it completely. I will be in touch when I have the results of the pathology report. If you have any questions in the meantime, please do not hesitate to contact us. 1. If tolerated, consume a soft, low fiber diet for 1-2 days. 2. Do not drive, drink alcohol, operate machinery, make critical decisions, or do activities that require coordination or balance for 24 hours. 3. Because air was put into your colon during the procedure, expelling air from your rectum (passing gas or farting) is normal. 4. You may not have a bowel movement for 1-3 days because of the colonoscopy prep. This is normal. 5. You may experience a sore throat for 24 to 48 hours. You may use throat lozenges or gargle with warm salt water to relieve the discomfort. 6. Because air was put into your stomach during the procedure, you may experience some belching. 7. Go directly to the emergency room if you notice any of the following: Develop chills (warm to touch), or if you have a thermometer and your temperature is above 101 Difficulty breathing or difficultly swallowing Persistent vomiting Severe abdominal pain, other than gas cramps Severe chest pain Black, tarry stools Any bleeding ? exceeding one tablespoon 8. Call your physician if the site where your intravenous was started becomes red, swollen, painful, and warm to touch. 9. Your physician has reviewed your pre-procedure medications. Please continue to take those medications as previously ordered. You will be given specific information/education regarding any changes to your medications before leaving. Activity:: Activity as Tolerated Diet:: As Tolerated Discharge Orders Discharge Orders: Discharge Order (Routine); Ordered 01/09/23 Ordered By: Shaun Zhang DS: Diagnosis Discharge Diagnosis (1) Screening for colon cancer: Status: Acute Asessment and Plan: I will follow-up on the pathology reports, and notify the patient when they are available
--- NOTE | 2023-01-09 20:32 | W.PM.ENDDOP ---
Date of service: 01/10/23 Time of Service: 08:27 Endoscopy Report DATE OF PROCEDURE: 01/10/23 PRE-OP DIAGNOSIS: GERD and screening colonoscopy POST-OP DIAGNOSIS: other (Gongora's esophagus, diverticulosis, colon polyp) PROCEDURE: EGD and Colonoscopy SURGEON: Shaun Zhang ANESTHESIA TYPE: General:No Airway ESTIMATED BLOOD LOSS: 15 PATHOLOGY: other (Biopsies of duodenum, gastric antrum, gastric body, GE junction; colon polyp) COMPLICATIONS: None DISPOSITION: same day INDICATIONS: Migel is a 77-year-old male with longstanding gastroesophageal reflux disease. 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 Few vascular ectasias of the stomach. rare pancolonic diverticulosis. Colon polyp at 20 cm PROCEDURE DESCRIPTION: After the initiation of monitored anesthetic care, and with the assistance of a bite block, I advanced a standard gastroscope through the mouth past the hypopharynx and into the esophagus.? Under the direct vision of the scope, I advanced down the esophagus into the stomach.? Once I entered the stomach, I performed a brief inspection, followed by retroflexion towards the gastric cardia.? This appeared normal.? After that, I gently advanced the scope around the incisura angularis and examined the pylorus.? This also appeared normal.? Next, I advanced the scope through the pylorus into the duodenum.? The mucosa was pink and healthy appearing.? There were no abnormalities. I perform random biopsies of the duodenum.? I was able to visualize bile draining into the duodenum through the ampulla Vater. ?Next, I began retracting the endoscope.? I brought the camera back into the stomach and perform complete examination. There were a few random gastric ectasias. There were no stigmata of recent bleeding.? I perform random biopsies of the gastric antrum and body to rule out microscopic gastritis, and helical back to pylori. I then gently desufflated some of the stomach, and withdrew the endoscope into the distal esophagus. The GE junction was measured at 40 cm. The Z-line extended up to about 38 cm with some mild irregularity. I performed four-quadrant biopsies of the GE junction. ?Finally, I withdrew the scope along the length of the esophagus taking great care to examine the entirety of the mucosa.? I did not appreciate any abnormalities. Next, we moved Migel into the left lateral decubitus position. Great care was taken to pad all of his points of contact. I began by performing an external anorectal exam.? Perineum and skin were normal, as was the anal verge.? There were some old fibrosed external hemorrhoids.? Next, I performed a digital rectal exam.? I did not appreciate any abnormal findings.? Next, I advanced a colonoscope into the rectal vault.? I performed retroflexion.? This was normal.? Using insufflation, I then advanced the colonoscope beyond the rectal folds and into the sigmoid colon before advancing towards the cecum.? The quality of the prep was adequate.? There were some rare small mouth diverticula along the length of the colon. The scope was noted to be in the cecum by identification of the ileocecal valve and appendiceal orifice.? I then began withdrawing the colonoscope using repeated irrigation as necessary for full evaluation of the colonic mucosa. Around 20 cm from the anal verge I identified a 0.5 cm polyp. ?It appeared sessile in character. ?I was able to remove this with a cold forcep polypectomy. ?I examined the site, and there was minimal bleeding. ?Once this was completed, I continued to withdraw the scope and examine the remainder of the colonic mucosa. Once the scope was withdrawn to the level of the rectum, great care was taken to examine portions of the rectal folds.? Finally, the scope was withdrawn and the patient was brought to the same-day surgery recovery unit as the anesthetic wore off. ?The findings and instructions were shared with the patient prior to discharge.
[2023-01-10 06:20] VITALS: BP 147/79; PULSE 63; RESP 18; TEMP 36.8; O2SAT 95
--- NOTE | 2023-01-10 06:58 | ANES.PREOP_ITS ---
General Info Date of Service Date Performed: 01/10/23 Height: 5 ft 9.5 in Weight: 104.1 kg Body Mass Index (BMI): 33.4 Surgical Procedure: Operation Date: 01/10/23 07:35 Proposed Procedure Side Surgeon p Colonoscopy/Gastroscopy Shaun Zhang MD Meds Allergies and Home Medications Allergies Allergy/AdvReac Type Severity Reaction Status Date / Time sildenafil AdvReac Intermediate FLUSHING Verified 01/10/23 06:37 simvastatin AdvReac Intermediate Severe Verified 01/10/23 06:37 myalgias Home Medication Medication Instructions Recorded acetaminophen 325 mg tablet 650 mg PO Q6H PRN #30 tabs 04/02/20 (Tylenol) nitroglycerin 0.4 mg sublingual 0.4 mg sublingual Q5M PRN chest 01/18/22 tablet pain #30 tabs sertraline 50 mg tablet 50 mg PO DAILY #60 tabs 01/18/22 fluticasone propionate 50 2 spray intranasal DAILY 90 days 05/03/22 mcg/actuation nasal #48 mL spray,suspension dofetilide 500 mcg capsule 500 mcg PO BID #180 tab-caps 08/16/22 (Tikosyn) furosemide 20 mg tablet 20 mg PO DAILY #90 tabs 08/16/22 gabapentin 300 mg capsule 300 mg PO QHS #90 caps 08/16/22 lisinopril 40 mg tablet 40 mg PO DAILY #90 tabs 08/16/22 magnesium oxide 400 mg (241.3 mg 400 mg PO DAILY #90 tabs 08/16/22 magnesium) tablet metoprolol succinate 25 mg 25 mg PO DAILY #90 tabs 08/16/22 tablet,extended release 24 hr potassium chloride 10 mEq 20 meq PO DAILY #60 tab-caps 08/16/22 capsule,extended release rivaroxaban 20 mg tablet (Xarelto) 20 mg PO DAILY #30 tab-caps 08/16/22 rosuvastatin 20 mg tablet 20 mg PO DAILY #90 tabs 08/16/22 terazosin 2 mg capsule 2 mg PO DAILY #90 tab-caps 08/16/22 wheat dextrin 3 gram/4 gram oral 1 packet PO DAILY #28 ea 08/16/22 powder packet (Benefiber Sugar Free (dextrin)) cholecalciferol (vitamin D3) 25 25 mcg PO DAILY 11/17/22 mcg (1,000 unit) capsule cyanocobalamin (vitamin B-12) 5,000 mcg PO DAILY 11/17/22 5,000 mcg capsule omeprazole 20 mg capsule,delayed 40 mg PO DAILY 11/22/22 release metoprolol succinate 25 mg 25 mg PO 01/10/23 tablet,extended release 24 hr nitroglycerin 0.4 mg sublingual mg 01/10/23 tablet rivaroxaban 20 mg tablet (Xarelto) 20 mg PO DAILY 01/10/23 sertraline 50 mg tablet 50 mg PO DAILY 01/10/23 Current Visit Medications: Current Medications Generic Name Dose Route Start Last Admin Trade Name Freq PRN Reason Stop Dose Admin Hyoscyamine Sulfate 0.125 mg 01/09/23 20:33 Hyoscyamine 0.125 Mg Sl/Oral/Chew SL DIRECTED PRN Ringer's Solution 1,000 mls @ 80 mls/hr 01/10/23 06:00 IV 02/06/23 23:59 INFUSION [facility] IV Miscellaneous Supplies 1 each 01/10/23 06:00 Iv Access IV 02/06/23 23:59 DIRECTED [facility] Ondansetron HCl 4 mg 01/09/23 20:33 Ondansetron 4 Mg/2 Ml Vial IVP Q4H PRN PRN Nausea / Vomiting Sodium Chloride 0 ml 01/10/23 06:00 Normal Saline Flush 10 Ml Syr IV 02/06/23 23:59 PRN PRN Sodium Chloride 0 ml 01/10/23 06:00 Normal Saline 10 Ml Vial IJ 02/06/23 23:59 DIRECTED PRN Sterile Water 0 ml 01/10/23 06:00 Water,Injection,Sterile 10 Ml Vial IJ 02/06/23 23:59 DIRECTED PRN PFSH Active Problems Active Problems: Problem Status Onset Code New onset atrial fibrillation 01/03/14 I48.91 Syncopal episodes 01/03/14 R55 Irritable bowel syndrome K58.9 Diverticulitis 12/31/13 K57.92 Gastroesophageal reflux disease K21.9 Hypertension I10 Decreased hearing H91.90 right arm dysfunction Colonic polyp K63.5 Hypercholesterolemia E78.0 [facility] Patient Anticoagulated on warfarin Z79.01 Atrial fibrillation 02/12/14 I48.91 BPH w urinary obs/LUTS 06/22/16 N40.1, N13.8 Bursitis of both shoulders 04/13/18 M75.51, M75.52 Current use of prison anticoagulation 11/27/15 Z79.01 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 Essential hypertension I10 long-term current use of antiarrhythmic drug 11/27/15 Z79.899 Low back pain M54.5 Neuropathy 08/13/16 G62.9 Peripheral polyneuropathy 08/31/16 G62.9 Persistent atrial fibrillation 11/27/15 I48.1 Vertigo R42 Atrial fibrillation I48.91 Adequate anticoagulation on anticoagulant therapy 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 Z79.899 Peripheral edema R60.9 Hyperlipidemia E78.5 BPH (benign prostatic hyperplasia) N40.0 Vitamin B12 deficiency E53.8 History of basal cell carcinoma Z85.828 Chronic rhinitis 01/03/20 J31.0 Conductive hearing loss, external ear 01/03/20 H90.2 History of parasitic infection Z86.19 Diarrhea of presumed infectious origin R19.7 Abdominal tenderness, RUQ (right upper quadrant) R10.811 Non-alcoholic fatty liver disease K76.0 Sessile colonic polyp K63.5 Hyperplastic colon polyp K63.5 Shortness of breath R06.02 Shoulder injury S49.90XA Bilateral hand numbness R20.0 Anxiety F41.9 Right rotator cuff tear arthropathy M75.101, M12.811 Bursitis of right shoulder M75.51 Biceps tendinitis of right shoulder M75.21 Impacted cerumen, bilateral H61.23 Ear itch L29.9 SARS-CoV-2 positive 04/16/22 U07.1 Nail dystrophy L60.3 Screening for colon cancer Z12.11 Mass of soft tissue of neck M79.89 Medical History Medical History History of umbilical hernia Pre-diabetes Sleep apnea uses CPAP Surgical History Surgical History EGD - MAC (08/20/14) H/O colonoscopy (~2012) History of esophagogastroduodenoscopy History of umbilical hernia repair (~04/02/20) Open Carpal Tunnel release x2 Status post carpal tunnel release Status post vasectomy Vasectomy Tobacco Smoking/Tobacco Use Status: Never Alcohol Alcohol Intake: former Substance Use Substance use: Never Substance use type: does not use Details: has no alcohol anymore Vital Signs and Lab Results Vital Signs Most Recent Vital Signs in EMR: Most Recent Vital Signs Temp Pulse Resp BP Pulse Ox 36.8 C 63 18 147/79 H 95 01/10/23 06:20 01/10/23 06:20 01/10/23 06:20 01/10/23 06:20 01/10/23 06:20 Lab Results Blood Type / Crossmatch: No Data to Display Complete Blood Count: No Data to Display Complete Metabolic Panel: Creatinine 1.1 mg/dL (0.70-1.30) 01/04/23 08:40 Est GFR (CKD-EPI 2020) 69.57 (mL/min/1.73m2) 01/04/23 08:40 Liver Function Panel: No Data to Display Coagulation Panel: No Data to Display Cardiac Panel: No Data to Display Arterial Blood Gas: No Data to Display Venous Blood Gas: No Data to Display Pancreas Panel: No Data to Display Thyroid Panel: No Data to Display Infectious Disease: No Data to Display Blood Cultures: No Data to Display Toxicology Panel: No Data to Display Imaging and Studies Imaging and Studies Study information below may be from another EMR and interpreted by another provider. Please see original notes in EMR for more complete details. EKG Summary: Conclusion Sinus rhythm...normal P axis, V-rate 50- 99 Abnormal R-wave progression, early transition...QRS area>0 in V2 Stress Test Summary: Stress ECG Conclusion 1. The resting electrocardiogram showed voltage for left ventricular hypertrophy 2. Patient exercised on the Aramsi protocol and completed a workload of 7.05 METS, stopping due to fatigue 3. Normal heart rate and blood pressure response to exercise. Patient achieved 97% of predicted heart rate for age 4. At peak exercise there was no electrocardiographic evidence of myocardial ischemia 5. In recovery there was [address] depression noted in the inferior and anterolateral leads, not diagnostic for ischemia 6. PVCs were noted 7. See MPI report Schultz Treadmill Score is 4.3 which is Moderate risk. Anesthesia Assessment and Plan Anesthesia History Personal History: No History of Anesthesia Complications Family History: No Family History of Anesthesia Complications Exercise Tolerance Exercise Tolerance: Metabolic Equivalents>4 Pertinent Negatives Pertinent Negatives: No Symptoms of GERD Cardiac & Pulmonary Exam Cardiac Exam: Normal S1/S2 Heart Sounds Pulmonary Exam: Clear Bilateral Breath Sounds Implantable Cardiac Device Does patient have a Pacemaker or an ICD?: No Airway Exam Known Difficult Airway: No Mallampati Class: 4 Mouth Opening: Normal (> 3cm) Thyromental Distance: Greater than 3 cm Neck Range of Motion: Full ROM Neck Circumference: Thick Teeth Condition: Normal Dentition ASA Classification ASA Score: ASA 2 Emergency Case?: No NPO Status NPO Status: NPO Clears >2 hours, Solids >8 hours Anesthesia Plan Resuscitation Status: Full Code Anesthesia Technique: General Anesthesia Airway Planned: Natural Airway Monitors Used: Standard Monitors
[2023-01-10] MEDS: Lactated Ringers 1,000 ML 80 ML IV (07:05)
[2023-01-10 07:12] VITALS: BMI 33.4
--- NOTE | 2023-01-10 07:35 | STOM_PTH ---
PATIENT: Migel Rivas LOC: [facility] U#:[id number] AGE/SX: 77/M ROOM: RE01/10/[address]: Shaun Zhang MD : 1945 BED: DIS: 01/10/2023 SPEC #: [id number] RECD: 01/10/23 12:21 STATUS: NISA RE #: [id number] NATASHA: 01/10/23 07:[address]: Shaun Zhang DEPT: Surgical Specimen RECD BY: Anne-Marie Mixon ENTERED: 01/10/23 12:23 SP TYPE: STOMACH OTHR DR: Carlitos Savage DO Tissues: 1 - BIOPSY BOWEL 2 - STOMACH BIOPSY 3 - STOMACH BIOPSY 4 - ESOPHAGUS BIOPSY 5 - BIOPSY BOWEL Procedures: GROSS AND MICRO LEVEL 4 Comments: [id number]
[2023-01-10 08:10] VITALS: BP 115/73; PULSE 61; RESP 16; TEMP 37; O2SAT 94
--- NOTE | 2023-01-10 08:21 | W.ANESPOSTOP ---
Postoperative Evaluation Date, Time and Location Date Performed: 01/10/23 Time Performed: 08:21 Patient Location: Day Surgery Unit Vital Signs Most Recent Imported Vital Signs: Most Recent Vital Signs Temp Pulse Resp BP Pulse Ox 37.0 C 61 16 115/73 94 01/10/23 08:10 01/10/23 08:10 01/10/23 08:10 01/10/23 08:10 01/10/23 08:10 Pain Score Most Recent Pain Score: Most Recent Pain Score Pain Level 0 01/10/23 08:10 Assessment Mental Status: Awake (Alert & Oriented to Patient Baseline) Airway and Respiratory Function: Patent airway with normal (patient baseline) respiratory exam Cardiovascular Function: Hemodynamically Stable Hydration Status: Adequately Hydrated Nausea & Vomiting: No Nausea or Vomiting Pain: Pt. Denies Any Pain Peripheral Nerve Block: Patient did not receive a nerve block
[2023-01-10 08:40] VITALS: BP 149/69; PULSE 62; RESP 16; TEMP 37; O2SAT 97
== END 2023-01-10 09:15 | disposition home or self-care (01) ==
PROVIDERS: PCP Family Medicine; Visit Provider Surgery
DX: Z12.11 Encounter for screening for malignant neoplasm of colon (principal); K22.70 Barrett's esophagus without dysplasia; K63.5 Polyp of colon; K57.30 Diverticulosis of large intestine without perforation or abscess without bleeding; K21.9 Gastro-esophageal reflux disease without esophagitis
CPT/HCPCS: 43239; 45380; 88305

== ENCOUNTER 2023-06-13 18:23 | Outpatient (CLI) | payer MEDICARE, SELFPAY ==
[2023-06-13 10:35] LABS: HCT 42.3 % (40.0-50.0); HGB 14.7 g/dL (13.5-17.5); MCH 32.2 pg (27.0-33.0); MCHC 34.8 % (32.0-36.0); MCV 93 fL (80-95); MPV 9.2 fL (8.0-11.0); Platelet Count 198 10^3/uL (130-400); RBC 4.56 10^6/uL (4.36-5.78); RDW 12.6 % (11.8-14.1); RDW-SD 43.1 fL; WBC 4.84 10^3/uL (4.4-10.8)
[2023-06-13 11:14] LABS: ALT 31 U/L (16-63); AST 16 U/L (15-37); Albumin 3.8 g/dL (3.4-5.0); Alkaline Phosphatase 52 U/L (46-116); Anion Gap 6.6 mmol/L (3-11); BUN 18 mg/dL (7-18); Bilirubin, Direct 0.1 mg/dL (0.0-0.2); Bilirubin, Total 0.5 mg/dL (0.2-1.0); CO2 26.4 mmol/L (21.0-32.0); CREATININE 1.1 mg/dL (0.70-1.30); Calcium 9.4 mg/dL (8.5-10.1); Chloride 103 mmol/L (98-107); Estimated GFR 69.14 (mL/min/1.73m2); Glucose 98 mg/dL (74-106); Potassium 4.5 mmol/L (3.5-5.1); Sodium 136 mmol/L (136-145)
== END 2023-06-13 18:24 | disposition home or self-care (01) ==
LOC: LBO 18:24
PROVIDERS: PCP Family Medicine; Visit Provider Internal Medicine
DX: R10.9 Unspecified abdominal pain (principal)
CPT/HCPCS: 36415; 80048; 80076; 85027

== ENCOUNTER 2023-08-25 09:26 | Emergency (ER) | payer OTHER, SELFPAY ==
[2023-08-25] VITALS (31 sets, daily range): BP systolic 140–176; BP diastolic 58–89; PULSE 55–87; RESP 11–20; O2SAT 95–98
--- NOTE | 2023-08-25 09:15 | RT.EKG_ITS ---
APPROVED REPORT Exam: Resting ECG Reason for Exam: chest pain Patient Location: E HR:80 bpm ECG Measurements Heart Rate 80 AXIS OR 204 P 37 QRSd 80 QRS 0 QT 383 T 5 QTc 443 Conclusion Sinus rhythm...normal P axis, I have reviewed and interpreted ECG and agree with software generated interpretation.
--- NOTE | 2023-08-25 09:39 | ED.GENADUL_ITS ---
Discharge Plan Disposition Patient Disposition: Home Discharge Details Clinical Impression: Costochondritis Primary Care Provider: Carlitos Savage ED Provider: Nile Beck Home Meds and New Rx's Prescriptions: Continued cholecalciferol (vitamin D3) 25 mcg (1,000 unit) capsule 25 mcg PO DAILY cyanocobalamin (vitamin B-12) 5,000 mcg capsule 5,000 mcg PO DAILY nitroglycerin 0.4 mg tablet, sublingual 0.4 mg sublingual Q5M PRN (Reason: chest pain) Qty: 30 0RF Rx Instructions: do not exceed 3 doses per episode sertraline 50 mg tablet 50 mg PO DAILY Qty: 60 1RF gabapentin 300 mg capsule 300 mg PO QHS Qty: 90 3RF omeprazole 20 mg capsule,delayed release(DR/EC) 40 mg PO DAILY lisinopril 40 mg tablet 40 mg PO DAILY Qty: 90 3RF potassium chloride 10 mEq capsule, extended release 20 meq PO DAILY Qty: 60 11RF rosuvastatin 20 mg tablet 20 mg PO DAILY Qty: 90 3RF Benefiber Sugar Free (dextrin) 3 gram/4 gram powder in packet 1 packet PO DAILY Qty: 28 6RF Rx Instructions: mix into at least 4 oz water or juice before administering dofetilide [Tikosyn] 500 mcg capsule 500 mcg PO BID Qty: 30 0RF Hold Instructions: Home Medication placed on hold at Doctor's office fluticasone propionate 50 mcg/actuation spray,suspension 2 spray NIEVES DAILY 90 Days Qty: 48 4RF Rx Instructions: administer into each nostril Xarelto 20 mg tablet 20 mg PO DAILY Qty: 30 11RF Hold Instructions: Resume on 01/11/23. terazosin 2 mg capsule 2 mg PO DAILY Qty: 90 3RF magnesium oxide 400 mg (241.3 mg magnesium) tablet 400 mg PO DAILY Qty: 90 3RF furosemide 20 mg tablet 20 mg PO DAILY Qty: 90 3RF metoprolol succinate 25 mg tablet extended release 24 hr 25 mg PO DAILY Qty: 90 3RF acetaminophen [Tylenol] 325 mg tablet 650 mg PO Q6H PRNQty: 30 0RF nitroglycerin 0.4 mg tablet, sublingual Patient Comments: TAKE 1 TABLET EVERY DAY AT 5AM NEEDED FOR CHEST PAIN; DO NOT EXCEED 3 DOSES PER EPISODE metoprolol succinate 25 mg Tablet Extended Release 24 Hr 25 mg PO ONCE sertraline 50 mg tablet 50 mg PO DAILY Patient Comments: TAKE ONE TABLET BY MOUTH EVERY DAY Discharge Instructions Instructions: Costochondritis (ED) Additional Instructions: You were seen in the emergency department for your left-sided chest pain of pleuritic nature that came on last night and has been present until today. Your cardiac workup is negative there is no signs of heart failure, no pneumonia, no pneumothorax, your D-dimer was negative indicating no blood clot in your lungs, it is possible that you have musculoskeletal chest pain called costochondritis, try Voltaren gel and gentle heat as we discussed. It would be prudent for you to follow-up with your primary care provider at the [place] for possible update in your baseline cardiology studies due to chest pain at your age. Please return to the emergency department for any further increase in chest pain especially with exertional onset with things like sweating, dizziness, feelings of near syncope, visual changes. Referrals: [facility] [Outside] Carlitos Savage DO [Primary Care Provider] - Medical Decision Making This dictation utilizes [id number] dictation software and may contain unedited grammatical errors. 78 y/o M presents to ED today with a chief complaint of chest pain since last night, no history of ACS. Onset and characteristics include left-sided chest pain and sharp stabbing and tight since last night, denies recent URI, denies fever, endorses some shortness of breath and feelings of presyncope at onset, unchanged by 324 mg aspirin by EMS. Patients' medical history: Hypertension, atrial fibrillation, diverticulitis, GERD, polyneuropathy, anxiety. Family and social history: [place] patient. Pertinent exam findings / vital signs include benign cardiopulmonary exam, regular rate at this time, neuro intact, lungs CTA, right lower quadrant tenderness. Differential / pathologies of concern include ACS, Costochondritis, PE, PTX, PNA, SBO. Diagnostic studies of: -CBC, CMP, Trop I (+3hr trop), BNP, D-Dimer, UA, Mg++, PTT/PT, CXR, CT ABD/Pelvis w Contrast. -No leukocytosis, CBC benign -D-dimer negative, INR 1.4, PTT 33.5, PT 13.9-baseline since December 2021 -Chest x-ray shows no pneumonia EKG shows sinus rhythm with P waves followed by narrow complex QRS within normal axis, good R wave progression, no ST changes, normal QT QTc -CT abdomen pelvis has no acute findings, question ingested density near the cecum without signs of infection -UA benign -BNP within normal limits -Serial troponins negative -Mild hypomagnesemia, repleted IV mag Interventions of: -IV fluids, IV magnesium, analgesics with morphine with relief of pain. ED Course/Assessment/Plan: Patient was ruled out for acute coronary syndrome and D-dimer is negative indicating no PE, chest x-ray is benign and CT abdomen pelvis shows no emergent findings. Otherwise the laboratory workup is fairly benign with a mild hypomagnesemia repleted by IV magnesium which will likely spontaneously resolve with normal p.o. intake. Counseled the patient on the need to follow-up as an outpatient with his regular doctor and talk to them about timing for updated echocardiogram and stress test. Strict return criteria for any increasing chest pain, recommend a trial of Voltaren and gentle heat for possible costochondritis. Findings not consistent with ACS/PE, PTX, PNA, Acute Emergent Abdominal pathology. Disposition of Costochondritis. Patient verbalized understanding of the plan and return to ED criteria and engaged in shared decision making. Medical Records Medical records reviewed: Yes I reviewed the patient's medical records. Imaging Data Radiologic Study: Imaging: X-Ray Radiologist's impression: EXAM: XR CHEST 2V PA LATERAL CLINICAL HISTORY: chest pain. TECHNIQUE: 2D digital imaging was performed. COMPARISON: CR XR CHEST 2V PA LATERAL from 01/07/2021 CR XR CHEST 2V PA LATERAL from 01/15/[address] ABDOMEN PELVIS W from 06/24/2023 FINDINGS: 2 views: Heart size is upper normal. The mediastinum is not widened. No infiltrates nor pleural effusions. No pulmonary edema. No fractures. However, on the lateral view there is a posteriorly located nodular density measuring approximately 1.6 x 1.5 cm, possibly within the superior segment of 1 of the lower lobes. Follow-up CT scan recommended. IMPRESSION: Posteriorly located lung nodule seen only on the lateral images, possibly significant. CT recommended Radiologic Study #2: Imaging: CT Scan Radiologist's impression: EXAM: CT ABDOMEN PELVIS W CLINICAL HISTORY: RLQ tenderness. TECHNIQUE: Imaging Protocol: Axial computed tomography images with coronal and sagittal reformatted images were created and reviewed CONTRAST MATERIAL: Intravenous: Omnipaque-350 100cc Oral: None COMPARISON: CT ABD PELVIS WO CONTRAST from 09/24/[address] ABDOMEN PELVIS W from 06/24/2023 FINDINGS: VISUALIZED LUNG BASES: No nodules nor pleural effusions evident. ABDOMEN: There is no ascites. LIVER: There is a solitary hypodense lesion in the liver measuring 2 by 1.5 cm, unchanged from 06/24/2023 and exhibiting minimal change from CT scan of 2017. I suspect that this is a benign hemangioma. There are no other focal hepatic findings. GALLBLADDER/BILIARY: No obvious gallbladder pathology. CBD is not dilated. PANCREAS: No evidence of pancreatic mass nor dilatation of the pancreatic duct. SPLEEN: Spleen is not enlarged. No obvious intrasplenic lesions. Splenic and portal veins are patent. ADRENALS: There are no significant adrenal masses. KIDNEYS:There are few small benign cysts in the right kidney which do not require further workup. No solid renal masses. There is a small 2 millimeter nonobstructive calculus in left kidney. No radiopaque calculi seen in the right kidney. No hydronephrosis nor hydroureter on either side. None. No radiopaque calculi seen at the ureterovesical junctions nor within the urinary bladder. ABDOMINAL AORTA: Abdominal aorta is not enlarged. LYMPH NODES:There is no retroperitoneal nor paraaortic adenopathy. ABDOMINAL WALL: No evidence of significant anterior abdominal wall nor inguinal hernia. GI: There is no evidence of bowel obstruction, free air, nor abscess. PELVIS: GI: No evidence of appendicitis.There are sigmoid diverticuli but no evidence of acute diverticulitis. No obvious colitis pattern. No enlarged mesenteric lymph nodes. LYMPH NODES: There is no intrapelvic nor inguinal adenopathy. REPRODUCTIVE: Moderately enlarged prostate gland. Measures 6.4 cm wide by 6.2 cm AP. No obturator adenopathy. Seminal vesicles appear unremarkable. URINARY BLADDER: No calculi nor obvious masses evident OSSEOUS: No fractures and no significant osseous lesions. IMPRESSION: 1. No evidence of acute appendicitis. Terminal ileum also appears unremarkable. 2. There is a thin density in the inferior tip of the cecum noted of questionable significance, possibly ingested. There is no surrounding streaking in the mesenteric fat. No regional lymphadenopathy. 3. Stable probable benign hemangioma in the liver. 4. Small nonobstructive calculus in the left kidney measuring 2-3 mm. Large prostate gland. Lab Data Labs: Laboratory Tests Range/Units 11/30/23 11/30/23 11/30/23 09:50 10:28 12:55 WBC (4.4-10.8) 10^3/uL 5.59 RBC (4.36-5.78) 10^6/uL 4.48 Hgb (13.5-17.5) g/dL 14.4 Hct (40.0-50.0) % 41.3 MCV (80-95) fL 92 MCH (27.0-33.0) pg 32.1 MCHC (32.0-36.0) % 34.9 RDW (11.8-14.1) % 12.6 Plt Count (130-400) 10^3/uL 219 MPV (8.0-11.0) fL 9.0 Immature Gran % 0.4 Neutrophils % 59.8 Lymphocytes % 22.9 Monocytes % 10.2 Eosinophils % 6.3 Basophils % 0.4 Nucleated RBC % (0.0-0.3) % 0.0 Absolute Neutrophils (1.2-6.7) 10^3/uL 3.35 Absolute Lymphocytes (1.2-3.4) 10^3/uL 1.28 Absolute Monocytes (0.1-0.8) 10^3/uL 0.57 Absolute Eosinophils (0.0-0.7) 10^3/uL 0.35 Absolute Basophils (0.0-0.2) 10^3/uL 0.02 PT (9.1-11.1) sec 13.9 H INR (0.9-1.1) 1.4 H APTT (23.6-32.8) sec 33.5 H D-Dimer (<500) ng/mlFEU 328 Sodium (136-145) mmol/L 139 Potassium (3.5-5.1) mmol/L 4.0 Chloride (98-107) mmol/L 104 Carbon Dioxide (21.0-32.0) mmol/L 27.7 Anion Gap (3-11) mmol/L 7.3 BUN (7-18) mg/dL 14 Creatinine (0.70-1.30) mg/dL 1.1 Est GFR (CKD-EPI 2020) (mL/min/1.73m2) 69.14 Glucose (74-106) mg/dL 133 H Calcium (8.5-10.1) mg/dL 9.1 Magnesium (1.8-2.4) mg/dL 1.6 L Total Bilirubin (0.2-1.0) mg/dL 0.6 AST (15-37) U/L 14 L ALT (16-63) U/L 27 Alkaline Phosphatase (46-116) U/L 42 L Troponin I (<or=60) ng/L < 50 < 50 NT-Pro-B Natriuret Pep (<300) pg/mL 44 Total Protein (6.4-8.2) g/dL 7.1 Albumin (3.4-5.0) g/dL 3.8 Urine Color (Yellow) Yellow Urine Clarity (Clear) Clear Urine pH (5-8) 6.5 Ur Specific [place] (1.005-1.025) 1.015 Urine Protein (Negative) mg/dL Negative Urine Ketones (Negative) mg/dL Negative Urine Blood (Negative) Negative Urine Nitrite (Negative) Negative Urine Bilirubin (Negative) Negative Urine Urobilinogen (Up to 0.2) mg/dL 0.2 Ur Leukocyte Esterase (Negative) Negative Urine Glucose (Negative) mg/dL Negative HPI General Date/Time Provider Initiated Documentation: 08/25/23 09:28 . HPI Narrative: 78 year-old male presents to ED today by POV/ambulating with his friend with a chief complaint of chest pain, L sided, sharp with onset last night. Patient has known atrial fibrillation without history of ACS, reports pain starting last night- non-exertional at onset, with some feeling flushed, shortness of breath, feelings of pre-syncope. Quality described as sharp chest pain at this time, patient self-equates the pain with possible MSK etiology, with some pain in his abdomen that is chronic in nature, no radiation to paleness, syncope, recent URI, fever, hemoptysis, tachycardia, palpitations, visual changes, bowel or urinary changes. Severity is described as moderate. Palliating factors include nothing specific - given 324mg ASA by EMS. Provoking factors include nothing specific. Events leading up to the incident/Associated Symptoms: patient had a stress test last year that he passed, doesn't remember his last echocardiogram, states his atrial fibrillation is paroxysmal. Patient is anticoagulated on Xarelto. Related Data Home Medications Medication Instructions Recorded Confirmed acetaminophen 325 mg tablet 650 mg (2 x 325 mg) PO Q6H PRN #30 04/02/20 08/25/23 (Tylenol) tabs nitroglycerin 0.4 mg sublingual 0.4 mg sublingual Q5M PRN chest 01/18/22 08/25/23 tablet pain #30 tabs sertraline 50 mg tablet 50 mg PO DAILY #60 tabs 01/18/22 08/25/23 lisinopril 40 mg tablet 40 mg PO DAILY #90 tabs 08/16/22 08/25/23 potassium chloride 10 mEq 20 meq (2 x 10 mEq) PO DAILY #60 08/16/22 08/25/23 capsule,extended release tab-caps rosuvastatin 20 mg tablet 20 mg PO DAILY #90 tabs 08/16/22 08/25/23 wheat dextrin 3 gram/4 gram oral 1 packet PO DAILY #28 ea 08/16/22 08/25/23 powder packet (Benefiber Sugar Free (dextrin)) cholecalciferol (vitamin D3) 25 25 mcg PO DAILY 11/17/22 01/10/23 mcg (1,000 unit) capsule cyanocobalamin (vitamin B-12) 5,000 mcg PO DAILY 11/17/22 08/25/23 5,000 mcg capsule omeprazole 20 mg capsule,delayed 40 mg PO DAILY 11/22/22 01/10/23 release metoprolol succinate 25 mg 25 mg PO ONCE 01/10/23 08/25/23 tablet,extended release 24 hr nitroglycerin 0.4 mg sublingual mg 01/10/23 tablet sertraline 50 mg tablet 50 mg PO DAILY 01/10/23 08/25/23 dofetilide 500 mcg capsule 500 mcg PO BID #30 tab-caps 01/24/23 08/25/23 (Tikosyn) fluticasone propionate 50 2 spray intranasal DAILY 90 days 06/08/23 08/25/23 mcg/actuation nasal #48 mL spray,suspension rivaroxaban 20 mg tablet (Xarelto) 20 mg PO DAILY #30 tab-caps 07/22/23 08/25/23 terazosin 2 mg capsule 2 mg PO DAILY #90 tab-caps 08/02/23 08/25/23 gabapentin 300 mg capsule 300 mg PO QHS #90 caps 08/15/23 08/25/23 magnesium oxide 400 mg (241.3 mg 400 mg PO DAILY #90 tabs 08/20/23 08/25/23 magnesium) tablet furosemide 20 mg tablet 20 mg PO DAILY #90 tabs 08/23/23 08/25/23 metoprolol succinate 25 mg 25 mg PO DAILY #90 tabs 08/23/23 08/25/23 tablet,extended release 24 hr Previous Rx's Medication Instructions Recorded acetaminophen 325 mg tablet 650 mg (2 x 325 mg) PO Q6H PRN #30 04/02/20 (Tylenol) tabs nitroglycerin 0.4 mg sublingual 0.4 mg sublingual Q5M PRN chest 01/18/22 tablet pain #30 tabs sertraline 50 mg tablet 50 mg PO DAILY #60 tabs 01/18/22 lisinopril 40 mg tablet 40 mg PO DAILY #90 tabs 08/16/22 potassium chloride 10 mEq 20 meq (2 x 10 mEq) PO DAILY #60 08/16/22 capsule,extended release tab-caps rosuvastatin 20 mg tablet 20 mg PO DAILY #90 tabs 08/16/22 wheat dextrin 3 gram/4 gram oral 1 packet PO DAILY #28 ea 08/16/22 powder packet (Benefiber Sugar Free (dextrin)) dofetilide 500 mcg capsule 500 mcg PO BID #30 tab-caps 01/24/23 (Tikosyn) fluticasone propionate 50 2 spray intranasal DAILY 90 days 06/08/23 mcg/actuation nasal #48 mL spray,suspension rivaroxaban 20 mg tablet (Xarelto) 20 mg PO DAILY #30 tab-caps 07/22/23 terazosin 2 mg capsule 2 mg PO DAILY #90 tab-caps 08/02/23 gabapentin 300 mg capsule 300 mg PO QHS #90 caps 08/15/23 magnesium oxide 400 mg (241.3 mg 400 mg PO DAILY #90 tabs 08/20/23 magnesium) tablet furosemide 20 mg tablet 20 mg PO DAILY #90 tabs 08/23/23 metoprolol succinate 25 mg 25 mg PO DAILY #90 tabs 08/23/23 tablet,extended release 24 hr Allergies Allergy/AdvReac Type Severity Reaction Status Date / Time sildenafil AdvReac Intermediate FLUSHING Verified 01/10/23 06:37 simvastatin AdvReac Intermediate Severe Verified 01/10/23 06:37 myalgias General Stated Complaint: Chest Pain GUS: 3 Review of Systems All systems reviewed & are unremarkable except as noted in HPI and below PFSH All Active Problems (Updated 08/25/23 @ 13:49 by ZEN Cardoza) Costochondritis (Acute) COVID (Acute) sx onset ~ 04/21/23. Tubular adenoma of colon (Acute ~12/2022) New onset atrial fibrillation (Chronic 01/03/14) Syncopal episodes (Chronic 01/03/14) Irritable bowel syndrome (Chronic) a. recurrent diarrhea. b. controlled with oral dicyclomine occasionally. Diverticulitis (Chronic 12/31/13) a. diagnosed empirically 12/31/2013, started on Cipro and Flagyl. b. Presented 01/01/14 to the emergency room with worsening abdominal pain. Abdominal pelvic CT scan did not show any significant abnormality. Flagyl was stopped. Continued on Cipro. Gastroesophageal reflux disease (Chronic) a. chronic PPI therapy. Hypertension (Chronic) Decreased hearing (Chronic) right arm dysfunction (Chronic) a. Fall from a horse years ago.--Pt. denies this 03/27/20 Colonic polyp (Chronic) a. status post colonoscopy December 2012. b. complicated by question of a perforation. Admitted for observation x4 days. Discharged on Augmentin. c. surgical pathology apparently benign, not currently available. Hypercholesterolemia (Chronic) a. question intolerance to simvastatin because of myalgias, currently off medications. 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 Pang last seen 2 months ago. Per pt. a-fib has been under control for a while with Tikosyn. 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 denies Vitamin B12 deficiency (Acute) History of basal cell carcinoma (Acute) Chronic rhinitis (Acute 01/03/20) ENT/[place] Conductive hearing loss, external ear (Acute 01/03/20) ENT/[place] History of parasitic infection (Acute) Diarrhea of presumed infectious origin (Acute) Abdominal tenderness, RUQ (right upper quadrant) (Acute) on exam, on top of bloating, diarrhea Non-alcoholic fatty liver disease (Acute) Sessile colonic polyp (Acute) Hyperplastic colon polyp (Acute) Shortness of breath (Acute) Shoulder injury (Acute) Bilateral hand numbness (Acute) Anxiety (Chronic) Right rotator cuff tear arthropathy (Chronic) Depo-Medrol injection: 01/20/2022 Bursitis of right shoulder (Acute) Biceps tendinitis of right shoulder (Acute) Impacted cerumen, bilateral (Acute) Ear itch (Acute) SARS-CoV-2 positive (Acute 04/16/22) Nail dystrophy (Acute) Screening for colon cancer (Acute) Mass of soft tissue of neck (Acute) Medical History (Updated 08/25/23 @ 13:49 by ZEN Cardoza) Pre-diabetes History of umbilical hernia Sleep apnea uses CPAP Surgical History (Updated 01/21/23 @ 13:21 by Elidia Laura RN) History of umbilical hernia repair (~04/02/20) History of esophagogastroduodenoscopy (~01/10/23) Status post carpal tunnel release Status post vasectomy H/O colonoscopy (~01/10/23) 12/2022 Vasectomy Open Carpal Tunnel release x2 EGD - MAC (08/20/14) 12/2022 Family History Mother Osteoporosis Heart disease Father Heart disease Brother Heart disease Grandfather No problems noted. Grandfather Heart disease Grandmother Heart disease Grandmother Heart disease Daughter No problems noted. Son No problems noted. 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, [employer] Sexually active: Yes Do you think of yourself as: lesbian/barcenas/homosexual Current gender identity: male What is your relationship status?: living with partner Panel score (0-1 are the most socially isolated patients): 1 What type of physical activity do you participate in: walking Duration: 30-45 minutes/day Frequency: 3-4 times per week Working smoke detector in home: Yes Fire extinguisher in home: Yes Carbon monox detector in home: Yes Do you feel safe at home: Yes Do you feel safe in your relationship?: Yes Exam Narrative Exam Narrative: GENERAL APPEARANCE: Well-nourished, non-toxic, awake and alert, atraumatic, no acute distress. SKIN: Warm, pink, dry, intact, without rashes/lesions/ulcerations. HEAD: Normocephalic, atraumatic, normal hair distribution for gender/age. EYES: Pupils PERRLA, EOMs intact without nystagmus, normal conjunctiva, no exudates on lids/lashes. ENT: Nares patent, no circumoral cyanosis, no facial swelling NECK: Supple, trachea midline, painless cervical ROM. LUNGS/CHEST: Lungs CTA bilaterally- no rhonchi/rales/wheezes diffusely, non- labored respirations, normal A/P diameter, symmetrical expansion, no chest wall deformity, non-pleuritic at arrival, but later reports pleuritic TTP to 4th/5th rib space mid-clavicular HEART (CV/PV): Regular rate and rhythm without murmur, no peripheral edema, no JVD. ABDOMEN: Soft, non-distended, no guarding, RLQ tenderness MSK: Normal ROM, no swelling/deformity to bilateral UEs or LEs, moving all extremities without weakness, no cyanosis, spine midline without tenderness, normal curvature. NEURO: Mental Status AAOx4 - alert to person, place, time, events No facial droop, no forehead involvement. Motor: No focal weakness - strength 5/5 in bilateral UEs and LEs, proximal and distal, symmetric. Sensory: sensation intact to light touch globally. Gait normal: patient ambulated without ataxia into ED room. 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 .Continuous MORPHine 4 mg IVP STAT STA Ondansetron [Zofran Injection] 4 mg IVP NOW ONE XR chest 2V PA & lateral [RAD] Stat 08/25/23 09:50 Cardiac Troponin I Stat Comprehensive Metabolic Panel Stat Magnesium Stat NT-proBNP Stat D-Dimer [COAG] Stat PTT Activated [COAG] Stat Prothrombin Time [COAG] Stat Complete Blood Count w/Diff [HEMO] Stat 08/25/23 10:00 Normal Saline [Saline 1000ml Bag] 1,000 ml IV INFUSION 08/25/23 10:28 Urinalysis [URIN] Stat 08/25/23 10:33 Magnesium Sulfate 2 gm in 50 ml IVPB NOW 08/25/23 11:30 CT abdomen & pelvis w [CT] Stat 08/25/23 12:55 Cardiac Troponin I Timed Vital Signs Vital signs: Vital Signs Pulse 87 08/25/23 09:29 Respiratory Rate 18 08/25/23 09:29 Blood Pressure 168/75 H 08/25/23 09:29 Pulse Oximetry 98 08/25/23 09:29 Pulse 87 08/25/23 09:29 Respiratory Rate 18 08/25/23 09:29 Respiratory Effort Short of Breath 08/25/23 09:33 Blood Pressure 168/75 H 08/25/23 09:29 Blood Pressure Position Sitting 08/25/23 09:29 Pulse Oximetry 98 08/25/23 09:29 Oxygen Delivery Method Room Air 08/25/23 09:29 Oxygen Flow Rate 0 08/25/23 09:29
--- NOTE | 2023-08-25 09:45 | DI.RAD_ITS ---
Exam(s) XR CHEST 2V PA LATERAL EXAM: XR CHEST 2V PA LATERAL CLINICAL HISTORY: chest pain. TECHNIQUE: 2D digital imaging was performed. COMPARISON: CR XR CHEST 2V PA LATERAL from 01/07/2021 CR XR CHEST 2V PA LATERAL from 01/15/[address] ABDOMEN PELVIS W from 06/24/2023 FINDINGS: 2 views: Heart size is upper normal. The mediastinum is not widened. No infiltrates nor pleural effusions. No pulmonary edema. No fractures. However, on the lateral view there is a posteriorly located nodular density measuring approximately 1 .6 x 1.5 cm, possibly within the superior segment of 1 of the lower lobes. Follow-up CT scan recomme nded. IMPRESSION: Posteriorly located lung nodule seen only on the lateral images, possibly significant. CT recommende d DATA REPOSITORY: RADIATION DOSE DELIVERED:
[2023-08-25 10:02] LABS: Abs Immature Grans 0.02 10^3/uL (0.0-0.06); Absolute Basophil Count 0.02 10^3/uL (0.0-0.2); Absolute Eosinophil Count 0.35 10^3/uL (0.0-0.7); Absolute Lymphocyte Count 1.28 10^3/uL (1.2-3.4); Absolute Monocyte Count 0.57 10^3/uL (0.1-0.8); Absolute Neutrophil Count 3.35 10^3/uL (1.2-6.7); Basophils % 0.4; Eosinophils % 6.3; HCT 41.3 % (40.0-50.0); HGB 14.4 g/dL (13.5-17.5); Immature Grans % 0.4; Lymphocytes % 22.9; MCH 32.1 pg (27.0-33.0); MCHC 34.9 % (32.0-36.0); MCV 92 fL (80-95); Monocytes % 10.2; Neutrophils % 59.8; Platelet Count 219 10^3/uL (130-400); RBC 4.48 10^6/uL (4.36-5.78); RDW 12.6 % (11.8-14.1); RDW-SD 42.5 fL; WBC 5.59 10^3/uL (4.4-10.8)
[2023-08-25] MEDS: Ondansetron 4 MG/2 ML VIAL IVP (10:07)
[2023-08-25] MEDS: MORPHine 10 MG/ML VIAL 4 MG IVP (10:09)
[2023-08-25] MEDS: Normal Saline 1,000 ML 125 ML IV (10:17)
[2023-08-25 10:18] LABS: INR 1.4 (0.9-1.1); PTT Activated 33.5 sec (23.6-32.8); Prothrombin Time 13.9 sec (9.1-11.1)
[2023-08-25 10:27] LABS: ALT 27 U/L (16-63); AST 14 U/L (15-37); Albumin 3.8 g/dL (3.4-5.0); Alkaline Phosphatase 42 U/L (46-116); Anion Gap 7.3 mmol/L (3-11); BUN 14 mg/dL (7-18); Bilirubin, Total 0.6 mg/dL (0.2-1.0); CO2 27.7 mmol/L (21.0-32.0); CREATININE 1.1 mg/dL (0.70-1.30); Calcium 9.1 mg/dL (8.5-10.1); Chloride 104 mmol/L (98-107); Estimated GFR 69.14 (mL/min/1.73m2); Glucose 133 mg/dL (74-106); Magnesium 1.6 mg/dL (1.8-2.4); NT-proBNP 44 pg/mL (<300); Sodium 139 mmol/L (136-145); Total Protein 7.1 g/dL (6.4-8.2); Troponin I < 50 ng/L (<or=60)
[2023-08-25 10:37] LABS: Bilirubin Negative (Negative); Blood Negative (Negative); Clarity Clear (Clear); Glucose Negative (Negative); Ketones Negative (Negative); Leukocyte Esterase Negative (Negative); Nitrite Negative (Negative); Specific Gravity 1.015 (1.005-1.025); Urobilinogen 0.2 mg/dL (Up to 0.2); pH 6.5 (5-8)
[2023-08-25] MEDS: MAGNESIUM SULFATE 2 GM/50 ML BAG IVPB (11:06)
[2023-08-25 11:29] LABS: D-Dimer 328 ng/mlFEU (<500)
--- NOTE | 2023-08-25 11:30 | DI.CT_ITS ---
Exam(s) CT ABDOMEN PELVIS W EXAM: CT ABDOMEN PELVIS W CLINICAL HISTORY: RLQ tenderness. TECHNIQUE: Imaging Protocol: Axial computed tomography images with coronal and sagittal reformatted images were created and reviewed CONTRAST MATERIAL: Intravenous: Omnipaque-350 100cc Oral: None COMPARISON: CT ABD PELVIS WO CONTRAST from 09/24/[address] ABDOMEN PELVIS W from 06/24/2023 FINDINGS: VISUALIZED LUNG BASES: No nodules nor pleural effusions evident. ABDOMEN: There is no ascites. LIVER: There is a solitary hypodense lesion in the liver measuring 2 by 1.5 cm, unchanged from 2022 and exhibiting minimal change from CT scan of 2017. I suspect that this is a benign hemangioma. There are no other focal hepatic findings. GALLBLADDER/BILIARY: No obvious gallbladder pathology. CBD is not dilated. PANCREAS: No evidence of pancreatic mass nor dilatation of the pancreatic duct. SPLEEN: Spleen is not enlarged. No obvious intrasplenic lesions. Splenic and portal veins are paten t. ADRENALS: There are no significant adrenal masses. KIDNEYS:There are few small benign cysts in the right kidney which do not require further workup. No solid renal masses. There is a small 2 millimeter nonobstructive calculus in left kidney. No radio paque calculi seen in the right kidney. No hydronephrosis nor hydroureter on either side. None. No radiopaque calculi seen at the ureterovesical junctions nor within the urinary bladder. ABDOMINAL AORTA: Abdominal aorta is not enlarged. LYMPH NODES:There is no retroperitoneal nor paraaortic adenopathy. ABDOMINAL WALL: No evidence of significant anterior abdominal wall nor inguinal hernia. GI: There is no evidence of bowel obstruction, free air, nor abscess. PELVIS: GI: No evidence of appendicitis.There are sigmoid diverticuli but no evidence of acute diverticulitis . No obvious colitis pattern. No enlarged mesenteric lymph nodes. LYMPH NODES: There is no intrapelvic nor inguinal adenopathy. REPRODUCTIVE: Moderately enlarged prostate gland. Measures 6.4 cm wide by 6.2 cm AP. No obturator a denopathy. Seminal vesicles appear unremarkable. URINARY BLADDER: No calculi nor obvious masses evident OSSEOUS: No fractures and no significant osseous lesions. IMPRESSION: 1. No evidence of acute appendicitis. Terminal ileum also appears unremarkable. 2. There is a thin density in the inferior tip of the cecum noted of questionable significance, possi igor ingested. There is no surrounding streaking in the mesenteric fat. No regional lymphadenopathy. 3. Stable probable benign hemangioma in the liver. 4. Small nonobstructive calculus in the left kidney measuring 2-3 mm. Large prostate gland. RADIATION DOSE DELIVERED: Total DLP DATA REPOSITORY: All CT scans at this facility are submitted to the National Radiology Data Registry (NRDR) Dose Index Registry (DIR) with the [employer] (ACR). RADIATION OPTIMIZATION: All CT scans at this facility use at least one of these dose optimization te chniques: automated exposure control; mA and/or kV adjustment per patient size (includes targeted exa ms where dose is matched to clinical indication); or iterative reconstruction.
[2023-08-25] MEDS: Omnipaque 350 MG/ML 500 ML BTL-Imaging package 100 ML IJ (12:22)
[2023-08-25 13:31] LABS: Troponin I < 50 ng/L (<or=60)
== END 2023-08-25 14:09 | disposition home or self-care (01) ==
PROVIDERS: Emergency Provider Physician Assistant; PCP Family Medicine
DX: R06.02 Shortness of breath; M94.0 Chondrocostal junction syndrome [Tietze]; I10 Essential (primary) hypertension; I48.91 Unspecified atrial fibrillation; K21.9 Gastro-esophageal reflux disease without esophagitis; F41.9 Anxiety disorder, unspecified; D18.09 Hemangioma of other sites; N20.0 Calculus of kidney; Z79.899 Other long term (current) drug therapy; E83.42 Hypomagnesemia
CPT/HCPCS: 80053; 93005; 96361; 96365; 96366; 99285; 71046; 74177; 81003; 83735; 83880; 84484; 85025; 85379; 85610; 85730; 93010; 99284; J2270; J2405

== ENCOUNTER 2023-12-01 09:01 | Outpatient (CLI) | payer MEDICARE, SELFPAY ==
--- NOTE | 2023-12-01 09:00 | RT.EKG_ITS ---
APPROVED REPORT Exam: Resting ECG Reason for Exam: a fib Patient Location: O HR:57 bpm ECG Measurements Heart Rate 57 AXIS IA 202 P -15 QRSd 104 QRS -12 QT 423 T 17 QTc 412 Conclusion Sinus rhythm...normal P axis, V-rate 50- 99 Abnormal R-wave progression, early transition...QRS area>0 in V2 Otherwise normal ECG
== END 2023-12-01 09:02 | disposition home or self-care (01) ==
LOC: DI.CARD 09:02
PROVIDERS: PCP Family Medicine; Visit Provider Internal Medicine Cardiovascular Disease
DX: I48.91 Unspecified atrial fibrillation (principal); Z79.899 Other long term (current) drug therapy
CPT/HCPCS: 93010

== ENCOUNTER → 2023-12-01 10:43 | Outpatient (BNVA) | payer MEDICARE, SELFPAY | PROVIDERS: PCP Family Medicine; Referring Provider Family Medicine; Visit Provider Internal Medicine Cardiovascular Disease | DX: I48.0 Paroxysmal atrial fibrillation (principal); I10 Essential (primary) hypertension; Z79.899 Other long term (current) drug therapy | CPT/HCPCS: 93005; 99213 ==

== ENCOUNTER → 2023-12-27 09:06 | Outpatient (BNVA) | payer MEDICARE, SELFPAY | PROVIDERS: PCP Family Medicine; Referring Provider Family Medicine; Visit Provider Nurse Practitioner Adult Health | DX: G62.9 Polyneuropathy, unspecified (principal); R73.03 Prediabetes | CPT/HCPCS: 99214 ==

== ENCOUNTER 2024-01-05 12:12 | Outpatient (CLI) | payer MEDICARE, SELFPAY ==
[2024-01-05 11:32] LABS: Hemoglobin A1C 5.8 % (<5.7)
== END 2024-01-05 12:13 | disposition home or self-care (01) ==
LOC: LBO 12:12
PROVIDERS: PCP Family Medicine; Visit Provider Nurse Practitioner Adult Health
DX: R73.03 Prediabetes (principal); G62.9 Polyneuropathy, unspecified
CPT/HCPCS: 36415; 83036

== ENCOUNTER 2024-01-27 12:11 | Emergency (ER) | payer OTHER, SELFPAY ==
[2024-01-27 12:22] VITALS: BP 138/85; PULSE 57; RESP 18; TEMP 37.1; O2SAT 98
[2024-01-27 13:57] LABS: Bilirubin Negative (Negative); Blood Trace-lysed (Negative); Clarity Clear (Clear); Glucose Negative (Negative); Ketones Negative (Negative); Leukocyte Esterase Negative (Negative); Nitrite Negative (Negative); Specific Gravity 1.015 (1.005-1.025)
[2024-01-27 14:03] LABS: Bacteria Negative HPF (Negative); C & S Indicated? No; Casts Negative LPF (Negative); Crystals Negative HPF (Negative); Epithelial Cells Rare HPF (Negative); Mucus Negative (Negative); RBC 0-2 HPF (0-2); WBC Negative HPF (0-5)
--- NOTE | 2024-01-28 10:05 | ED.GENADUL_ITS ---
Discharge Plan Disposition Patient Disposition: Home Discharge Details Clinical Impression: Back pain Primary Care Provider: Carlitos Savage ED Provider: Anne-Marie Gaines Home Meds and New Rx's Prescriptions: New diazepam [Valium] 5 mg tablet 2.5 mg PO BID PRNQty: 10 0RF prednisone 20 mg tablet 40 mg PO ONCE Qty: 10 0RF Continued cholecalciferol (vitamin D3) 25 mcg (1,000 unit) capsule 25 mcg PO DAILY cyanocobalamin (vitamin B-12) 5,000 mcg capsule 5,000 mcg PO DAILY gabapentin 600 mg tablet 600 mg PO QHS Qty: 90 3RF Benefiber Sugar Free (dextrin) 3 gram/4 gram powder in packet 1 packet PO DAILY Qty: 28 6RF Rx Instructions: mix into at least 4 oz water or juice before administering Xarelto 20 mg tablet 20 mg PO DAILY Qty: 30 11RF Hold Instructions: Resume on 01/11/23. terazosin 2 mg capsule 2 mg PO DAILY Qty: 90 3RF magnesium oxide 400 mg (241.3 mg magnesium) tablet 400 mg PO DAILY Qty: 90 3RF furosemide 20 mg tablet 20 mg PO DAILY Qty: 90 3RF metoprolol succinate 25 mg tablet extended release 24 hr 25 mg PO DAILY Qty: 90 3RF potassium chloride 10 mEq capsule, extended release 20 meq PO DAILY Qty: 60 11RF rosuvastatin 20 mg tablet 20 mg PO DAILY Qty: 90 3RF lisinopril 40 mg tablet 40 mg PO DAILY Qty: 90 3RF omeprazole 40 mg capsule,delayed release(DR/EC) 40 mg PO DAILY Qty: 90 3RF dofetilide [Tikosyn] 500 mcg capsule 500 mcg PO BID Qty: 180 0RF Hold Instructions: Home Medication placed on hold at Doctor's office fluticasone propionate 50 mcg/actuation spray,suspension 2 spray NIEVES DAILY 90 Days Qty: 48 4RF Rx Instructions: administer into each nostril acetaminophen [Tylenol] 325 mg tablet 650 mg PO Q6H PRNQty: 30 0RF nitroglycerin 0.4 mg tablet, sublingual 0.4 mg sublingual PRN Patient Comments: TAKE 1 TABLET EVERY DAY AT 5AM NEEDED FOR CHEST PAIN; DO NOT EXCEED 3 DOSES PER EPISODE sertraline 50 mg tablet 50 mg PO DAILY Patient Comments: TAKE ONE TABLET BY MOUTH EVERY DAY Discharge Instructions Instructions: Back Pain (ED) Additional Instructions: Use your walker with ambulation, this will help you rest your back a bit Take the prednisone as prescribed starting today Take the volume at night, this can make you very drowsy do not combine this with alcohol, this can be an addictive medication you may take 2.5 to 5 mg, however the 5 mg 3 make you quite drowsy Please return earlier should you have new or worsening complaints including fever, chills, chest pain, shortness of breath, changes in bowel or bladder, worsening pain or weakness Have your urine rechecked by your doctor in 1 week as you had a small amount of urobilinogen Referrals: Carlitos Savage DO [Primary Care Provider] - 3 days Discharge Data Discharge Date/Time-TO BE ENTERED AT DEPARTURE: 01/27/24 14:30 HPI General Date/Time Provider Initiated Documentation: 01/27/24 13:04 . HPI Narrative: This 78-year-old male presents with back pain with radiation down right hip and leg. Patient states that the pain started the evening after moving a very heavy set of patio furniture. Patient states the pain is worsened with any sort of movement. He is having a hard time getting out of bed secondary to discomfort. He has been taking Tylenol and applying Aspercreme without relief. He denies any strength or sensation changes to groin or lower extremities. He denies any fever or chills. He denies any pain to abdomen or pelvis. Denies any urinary symptoms aside from some discolored urine. Related Data Home Medications Medication Instructions Recorded Confirmed acetaminophen 325 mg tablet 650 mg (2 x 325 mg) PO Q6H PRN #30 04/02/20 01/27/24 (Tylenol) tabs wheat dextrin 3 gram/4 gram oral 1 packet PO DAILY #28 ea 08/16/22 01/27/24 powder packet (Benefiber Sugar Free (dextrin)) cholecalciferol (vitamin D3) 25 25 mcg PO DAILY 11/17/22 01/27/24 mcg (1,000 unit) capsule cyanocobalamin (vitamin B-12) 5,000 mcg PO DAILY 11/17/22 01/27/24 5,000 mcg capsule nitroglycerin 0.4 mg sublingual 0.4 mg sublingual PRN 01/10/23 12/27/23 tablet sertraline 50 mg tablet 50 mg PO DAILY 01/10/23 01/27/24 rivaroxaban 20 mg tablet (Xarelto) 20 mg PO DAILY #30 tab-caps 07/22/23 01/27/24 terazosin 2 mg capsule 2 mg PO DAILY #90 tab-caps 08/02/23 01/27/24 magnesium oxide 400 mg (241.3 mg 400 mg PO DAILY #90 tabs 08/20/23 01/27/24 magnesium) tablet furosemide 20 mg tablet 20 mg PO DAILY #90 tabs 08/23/23 01/27/24 metoprolol succinate 25 mg 25 mg PO DAILY #90 tabs 08/23/23 01/27/24 tablet,extended release 24 hr potassium chloride 10 mEq 20 meq (2 x 10 mEq) PO DAILY #60 09/15/23 01/27/24 capsule,extended release tab-caps rosuvastatin 20 mg tablet 20 mg PO DAILY #90 tabs 09/22/23 01/27/24 lisinopril 40 mg tablet 40 mg PO DAILY #90 tabs 10/11/23 01/27/24 omeprazole 40 mg capsule,delayed 40 mg PO DAILY #90 caps 10/18/23 01/27/24 release dofetilide 500 mcg capsule 500 mcg PO BID #180 tab-caps 11/10/23 01/27/24 (Tikosyn) gabapentin 600 mg tablet 600 mg PO QHS #90 tabs 11/14/23 01/27/24 fluticasone propionate 50 2 spray intranasal DAILY 90 days 12/26/23 01/27/24 mcg/actuation nasal #48 mL spray,suspension diazepam 5 mg tablet (Valium) 2.5 mg (1/2 x 5 mg) PO BID PRN #10 01/27/24 tabs prednisone 20 mg tablet 40 mg (2 x 20 mg) PO ONCE #10 tabs 01/27/24 Previous Rx's Medication Instructions Recorded acetaminophen 325 mg tablet 650 mg (2 x 325 mg) PO Q6H PRN #30 04/02/20 (Tylenol) tabs wheat dextrin 3 gram/4 gram oral 1 packet PO DAILY #28 ea 08/16/22 powder packet (Benefiber Sugar Free (dextrin)) rivaroxaban 20 mg tablet (Xarelto) 20 mg PO DAILY #30 tab-caps 07/22/23 terazosin 2 mg capsule 2 mg PO DAILY #90 tab-caps 08/02/23 magnesium oxide 400 mg (241.3 mg 400 mg PO DAILY #90 tabs 08/20/23 magnesium) tablet furosemide 20 mg tablet 20 mg PO DAILY #90 tabs 08/23/23 metoprolol succinate 25 mg 25 mg PO DAILY #90 tabs 08/23/23 tablet,extended release 24 hr potassium chloride 10 mEq 20 meq (2 x 10 mEq) PO DAILY #60 09/15/23 capsule,extended release tab-caps rosuvastatin 20 mg tablet 20 mg PO DAILY #90 tabs 09/22/23 lisinopril 40 mg tablet 40 mg PO DAILY #90 tabs 10/11/23 omeprazole 40 mg capsule,delayed 40 mg PO DAILY #90 caps 10/18/23 release dofetilide 500 mcg capsule 500 mcg PO BID #180 tab-caps 11/10/23 (Tikosyn) gabapentin 600 mg tablet 600 mg PO QHS #90 tabs 11/14/23 fluticasone propionate 50 2 spray intranasal DAILY 90 days 12/26/23 mcg/actuation nasal #48 mL spray,suspension diazepam 5 mg tablet (Valium) 2.5 mg (1/2 x 5 mg) PO BID PRN #10 01/27/24 tabs prednisone 20 mg tablet 40 mg (2 x 20 mg) PO ONCE #10 tabs 01/27/24 Allergies Allergy/AdvReac Type Severity Reaction Status Date / Time sildenafil AdvReac Intermediate FLUSHING Verified 01/27/24 12:25 simvastatin AdvReac Intermediate Severe Verified 01/27/24 12:25 myalgias General Stated Complaint: Nk/Back Pain GUS: 3 Exam Narrative Exam Narrative: 78-year-old male presenting with report of back pain, on exam patient is alert and oriented, very pleasant, lungs clear to auscultation bilaterally, cardiac rate rhythm regular, distal pulses are intact, no abdominal bruit or pulsatile mass, no CVA tenderness, no pallor, reproducible tenderness to lumbar spine and paraspinal tenderness, strength and sensation intact bilateral lower extremities Course Vital Signs Vital signs: Vital Signs Temperature 37.1 C 01/27/24 12:22 Pulse 57 L 01/27/24 12:22 Respiratory Rate 18 01/27/24 12:22 Blood Pressure 138/85 01/27/24 12:22 Pulse Oximetry 98 01/27/24 12:22 Temperature 37.1 C 01/27/24 12:22 Temperature Source Skin 01/27/24 12:22 Pulse 57 L 01/27/24 12:22 Respiratory Rate 18 01/27/24 12:22 Respiratory Effort Normal, Non-Labored 01/27/24 14:08 Blood Pressure 138/85 01/27/24 12:22 Blood Pressure Position Sitting 01/27/24 12:22 Pulse Oximetry 98 01/27/24 12:22 Oxygen Delivery Method Room Air 01/27/24 12:22 Oxygen Flow Rate 0 01/27/24 12:22 Pain Level 8 01/27/24 12:22 Lab/Test Results Lab/Test Results: Laboratory Tests Range/Units 01/27/24 13:50 Urine Color (Yellow) Yellow Urine Clarity (Clear) Clear Urine pH (5-8) 6.0 Ur Specific [place] (1.005-1.025) 1.015 Urine Protein (Neg-Trace) mg/dL Negative Urine Ketones (Negative) mg/dL Negative Urine Blood (Negative) Trace-lysed H Urine Nitrite (Negative) Negative Urine Bilirubin (Negative) Negative Urine Urobilinogen (Up to 0.2) mg/dL 1.0 H Ur Leukocyte Esterase (Negative) Negative Urine RBC (0-2) HPF 0-2 Urine WBC (0-5) HPF Negative Ur Epithelial Cells (Negative) HPF Rare Urine Crystals (Negative) HPF Negative Urine Bacteria (Negative) HPF Negative Urine Casts (Negative) LPF Negative Urine Mucus (Negative) Negative Ur Culture Indicated? No Urine Glucose (Negative) mg/dL Negative Medical Decision Making This 78-year-old male presents with report of back pain, history of back pain but nothing quite as significant as this per patient. He attributes it to moving heavy patio furniture. He states he has been able to ambulate with discomfort around his house, he has tried numerous interventions. There is no sign of cauda equina syndrome on exam today. Patient has a nonfocal neurological exam and a nontender flank and abdominal exam without any visible signs of bleeding. The patient is on rivaroxaban and I did consider retroperitoneal hematoma, however there was no trauma and pain is consistent with lifting mechanism and musculoskeletal pain. Low suspicion clinically for retroperitoneal hematoma although patient is on rivaroxaban there was no trauma and the pain is very reproducible without any visible signs of trauma. Will treat with Valium and prednisone for home, risk of addiction reviewed. Patient denies any history of alcoholism. Patient also requested a urinalysis as his urine been slightly dark. His urine was yellow and clear here, he does have some urobilinogen he did have liver enzymes rechecked several months ago which were negative for acute abnormality, patient is encouraged to have this rechecked by his primary care physician there is no blood noted in his urine. Patient is alert and oriented, he has a nonfocal exam inconsistent with cauda equina syndrome or other more ominous pathology such as retroperitoneal hematoma. Will treat him with supportive care for back pain and give a small amount of Valium for muscle relaxation. Patient was encouraged to follow-up with his primary care physician this week for reassessment and return earlier should he have new or worsening complaints Quality:SDOH Health Related Social Needs: No Data to Display PFSH All Active Problems (Updated 01/27/24 @ 14:06 by ZEN Borja) Back pain (Acute) Erectile dysfunction (Acute) Tubular adenoma of colon (Acute ~12/2022) New onset atrial fibrillation (Chronic 01/03/14) Syncopal episodes (Chronic 01/03/14) Irritable bowel syndrome (Chronic) a. recurrent diarrhea. b. controlled with oral dicyclomine occasionally. Diverticulitis (Chronic 12/31/13) a. diagnosed empirically 12/31/2013, started on Cipro and Flagyl. b. Presented 01/01/14 to the emergency room with worsening abdominal pain. Abdominal pelvic CT scan did not show any significant abnormality. Flagyl was stopped. Continued on Cipro. Gastroesophageal reflux disease (Chronic) a. chronic PPI therapy. Hypertension (Chronic) Decreased hearing (Chronic) right arm dysfunction (Chronic) a. Fall from a horse years ago.--Pt. denies this 03/27/20 Colonic polyp (Chronic) a. status post colonoscopy December 2012. b. complicated by question of a perforation. Admitted for observation x4 days. Discharged on Augmentin. c. surgical pathology apparently benign, not currently available. Hypercholesterolemia (Chronic) a. question intolerance to simvastatin because of myalgias, currently off medications. 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 Pang last seen 2 months ago. Per pt. a-fib has been under control for a while with Tikosyn. 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 denies Vitamin B12 deficiency (Acute) History of basal cell carcinoma (Acute) Chronic rhinitis (Acute 01/03/20) ENT/[place] Conductive hearing loss, external ear (Acute 01/03/20) ENT/[place] History of parasitic infection (Acute) Diarrhea of presumed infectious origin (Acute) Abdominal tenderness, RUQ (right upper quadrant) (Acute) on exam, on top of bloating, diarrhea Non-alcoholic fatty liver disease (Acute) Sessile colonic polyp (Acute) Hyperplastic colon polyp (Acute) Shortness of breath (Acute) Shoulder injury (Acute) Bilateral hand numbness (Acute) Anxiety (Chronic) Right rotator cuff tear arthropathy (Chronic) Depo-Medrol injection: 01/20/2022 Bursitis of right shoulder (Acute) Biceps tendinitis of right shoulder (Acute) Impacted cerumen, bilateral (Acute) Ear itch (Acute) SARS-CoV-2 positive (Acute 04/16/22) Nail dystrophy (Acute) Screening for colon cancer (Acute) Mass of soft tissue of neck (Acute) Medical History Pre-diabetes History of umbilical hernia Sleep apnea uses CPAP Surgical History History of umbilical hernia repair (~04/02/20) History of esophagogastroduodenoscopy (~01/10/23) Status post carpal tunnel release Status post vasectomy H/O colonoscopy (~01/10/23) 12/2022 Vasectomy Open Carpal Tunnel release x2 EGD - MAC (08/20/14) 12/2022 Family History Mother Osteoporosis Heart disease Father Heart disease Brother Heart disease Grandfather No problems noted. Grandfather Heart disease Grandmother Heart disease Grandmother Heart disease Daughter No problems noted. Son No problems noted. 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 Pets and animals: No Sexually active: No Do you think of yourself as: lesbian/barcenas/homosexual Current gender identity: male What is your relationship status?: living with partner How often do you talk on the phone with friends or family?: three or more times per week How often do you get together with friends or relatives?: once per week Do you belong to any clubs or organized social groups?: no Panel score (0-1 are the most socially isolated patients): 2 What type of physical activity do you participate in: walking Duration: 15-30 minutes/day Frequency: 1-2 times per week Lili/Religious: Temple Special lili needs: No Seatbelt use: always Helmet use: No (Never) Drive intox or ride w/intox taxi cab driver: No Working smoke detector in home: Yes Fire extinguisher in home: Yes Carbon monox detector in home: Yes Do you feel safe at home: Yes Do you feel safe in your relationship?: Yes
== END 2024-01-27 14:30 | disposition home or self-care (01) ==
PROVIDERS: Emergency Provider Physician Assistant; PCP Family Medicine
DX: M54.50 Low back pain, unspecified (principal); I48.0 Paroxysmal atrial fibrillation; I10 Essential (primary) hypertension; Z79.01 Long term (current) use of anticoagulants
CPT/HCPCS: 99283; 81003; 81015

== ENCOUNTER → 2024-07-09 13:54 | Outpatient (BNVA) | payer OTHER, MEDICARE, SELFPAY | PROVIDERS: PCP Family Medicine; Referring Provider Family Medicine; Visit Provider Nurse Practitioner Gerontology | DX: N52.9 Male erectile dysfunction, unspecified (principal); N40.0 Benign prostatic hyperplasia without lower urinary tract symptoms; R33.9 Retention of urine, unspecified | CPT/HCPCS: 51798; 99213 ==

== ENCOUNTER 2024-07-24 02:54 | Outpatient (CLI) | payer MEDICARE, SELFPAY ==
[2024-07-24 07:29] LABS: Abs Immature Grans 0.02 10^3/uL (0.0-0.06); Absolute Basophil Count 0.02 10^3/uL (0.0-0.2); Absolute Eosinophil Count 0.41 10^3/uL (0.0-0.7); Absolute Lymphocyte Count 1.68 10^3/uL (1.2-3.4); Absolute Monocyte Count 0.49 10^3/uL (0.1-0.8); Absolute Neutrophil Count 2.34 10^3/uL (1.2-6.7); Basophils % 0.4 %; Eosinophils % 8.3 %; HCT 43.2 % (40.0-50.0); HGB 14.7 g/dL (13.5-17.5); Immature Grans % 0.4 %; Lymphocytes % 33.9 %; MCH 32.2 pg (27.0-33.0); MCV 95 fL (80-95); Monocytes % 9.9 %; Neutrophils % 47.1 %; Platelet Count 220 10^3/uL (130-400); RBC 4.57 10^6/uL (4.36-5.78); RDW 12.4 % (11.8-14.1); RDW-SD 42.8 fL; WBC 4.96 10^3/uL (4.4-10.8)
[2024-07-24 08:30] LABS: LDH 116 U/L (85-227)
[2024-07-24 08:44] LABS: ALT 30 U/L (16-63); AST 18 U/L (15-37); Albumin 3.7 g/dL (3.4-5.0); Alkaline Phosphatase 57 U/L (46-116); Anion Gap 6.1 mmol/L (3-11); BUN 17 mg/dL (7-18); Bilirubin, Total 0.59 mg/dL (0.2-1.0); C-Reactive Protein < 0.50 mg/dL (<or=0.5); CO2 30.9 mmol/L (21.0-32.0); CREATININE 1.2 mg/dL (0.70-1.30); Calcium 9.4 mg/dL (8.5-10.1); Chloride 105 mmol/L (98-107); Glucose 106 mg/dL (74-106); Potassium 4.1 mmol/L (3.5-5.1); Sodium 142 mmol/L (136-145); TSH (W/Ref FT4) 1.33 uIU/mL (0.36-3.74); Total Protein 7.1 g/dL (6.4-8.2)
[2024-07-25 10:38] LABS: Lyme Ab w Rflx to Lyme Confirm Negative (Negative)
[2024-07-27 00:57] LABS: Anaplasma phagocytophilum Negative (Negative); B. miyamotoi PCR Negative (Negative); Babesia divergens/MO-1 Negative (Negative); Babesia duncani Negative (Negative); Babesia microti Negative (Negative); Ehrlichia chaffeensis Negative (Negative); Ehrlichia ewingii/canis Negative (Negative); Ehrlichia muris eauclairensis Negative (Negative)
== END 2024-07-24 02:55 | disposition home or self-care (01) ==
LOC: LBO 02:54
PROVIDERS: PCP Family Medicine; Visit Provider Family Medicine
DX: R61 Generalized hyperhidrosis (principal)
CPT/HCPCS: 36415; 80053; 87798; 83615; 84443; 85025; 86140; 86618

== ENCOUNTER 2024-08-26 09:59 | Emergency (ER) | payer OTHER, SELFPAY ==
[2024-08-26 10:02] VITALS: BP 158/80; PULSE 59; RESP 16; TEMP 36.6; O2SAT 99
--- NOTE | 2024-08-26 10:09 | ED.GENADUL_ITS ---
Discharge Plan Disposition Patient Disposition: Home Condition: Stable Discharge Details Clinical Impression: Prescription refill Primary Care Provider: Erika Wooten ED Provider: Annabel Michel Home Meds and New Rx's Prescriptions: New dofetilide 500 mcg capsule 500 mcg PO BID Qty: 10 0RF Rx Instructions: Take 1 capsule twice daily Continued cholecalciferol (vitamin D3) 25 mcg (1,000 unit) capsule 25 mcg PO DAILY cyanocobalamin (vitamin B-12) 5,000 mcg capsule 5,000 mcg PO DAILY tadalafil [Cialis] 5 mg tablet 5 mg PO DAILY Qty: 90 0RF gabapentin 600 mg tablet 600 mg PO QHS Qty: 90 3RF terazosin 2 mg capsule 2 mg PO DAILY Qty: 90 3RF magnesium oxide 400 mg (241.3 mg magnesium) tablet 400 mg PO DAILY Qty: 90 3RF furosemide 20 mg tablet 20 mg PO DAILY Qty: 90 3RF metoprolol succinate 25 mg tablet extended release 24 hr 25 mg PO DAILY Qty: 90 3RF potassium chloride 10 mEq capsule, extended release 20 meq PO DAILY Qty: 60 11RF rosuvastatin 20 mg tablet 20 mg PO DAILY Qty: 90 3RF lisinopril 40 mg tablet 40 mg PO DAILY Qty: 90 3RF omeprazole 40 mg capsule,delayed release(DR/EC) 40 mg PO DAILY Qty: 90 3RF fluticasone propionate 50 mcg/actuation spray,suspension 2 spray NIEVES DAILY 90 Days Qty: 48 4RF Rx Instructions: administer into each nostril sertraline 50 mg tablet 50 mg PO DAILY Qty: 90 3RF Xarelto 20 mg tablet 20 mg PO DAILY Qty: 30 11RF diazepam [Valium] 5 mg tablet 2.5 mg PO BID PRNQty: 10 0RF dofetilide [Tikosyn] 500 mcg capsule 500 mcg PO BID Qty: 180 3RF Discharge Instructions Instructions: Medicines for atrial fibrillation Additional Instructions: Prescription for 5 days of your dofetilide was sent to the [facility] in [facility]. Follow up with primary care provider in 3-5 days. Return to ED sooner if any worsening or concerns. Referrals: Carlitos Savage DO [OSTEOPATHIC DOCTOR] - 1 week Discharge Data Discharge Date/Time-TO BE ENTERED AT DEPARTURE: 08/26/24 10:22 HPI General Mode of arrival: ambulatory . Date/Time Provider Initiated Documentation: 08/26/24 10:01 . Limitations to Documentation: no limitations . Information obtained by: patient, RN notes reviewed and old records reviewed . HPI Narrative: 79-year-old male presents to the ER with a chief complaint of patient refill. Patient states that he has been out of his dofetilide for the last 2 days. He is requesting approximately 4 to 8 tablets of the medication until he can get his medication refilled. Denies any chest pain shortness of breath or any associated symptoms. No other complaints. Related Data Home Medications ?Medication ?Instructions ?Recorded ?Confirmed cholecalciferol (vitamin D3) 25 25 mcg PO DAILY 11/17/22 08/26/24 mcg (1,000 unit) capsule cyanocobalamin (vitamin B-12) 5,000 mcg PO DAILY 11/17/22 08/26/24 5,000 mcg capsule terazosin 2 mg capsule 2 mg PO DAILY #90 tab-caps 08/02/23 08/26/24 magnesium oxide 400 mg (241.3 mg 400 mg PO DAILY #90 tabs 08/20/23 08/26/24 magnesium) tablet furosemide 20 mg tablet 20 mg PO DAILY #90 tabs 08/23/23 08/26/24 metoprolol succinate 25 mg 25 mg PO DAILY #90 tabs 08/23/23 08/26/24 tablet,extended release 24 hr potassium chloride 10 mEq 20 meq (2 x 10 mEq) PO DAILY #60 09/15/23 08/26/24 capsule,extended release tab-caps rosuvastatin 20 mg tablet 20 mg PO DAILY #90 tabs 09/22/23 08/26/24 lisinopril 40 mg tablet 40 mg PO DAILY #90 tabs 10/11/23 08/26/24 omeprazole 40 mg capsule,delayed 40 mg PO DAILY #90 caps 10/18/23 08/26/24 release gabapentin 600 mg tablet 600 mg PO QHS #90 tabs 11/14/23 08/26/24 fluticasone propionate 50 2 spray intranasal DAILY 90 days 12/26/23 08/26/24 mcg/actuation nasal #48 mL spray,suspension sertraline 50 mg tablet 50 mg PO DAILY #90 tabs 02/28/24 08/26/24 tadalafil 5 mg tablet (Cialis) 5 mg PO DAILY BPH with LUTS #90 04/19/24 08/26/24 tabs rivaroxaban 20 mg tablet (Xarelto) 20 mg PO DAILY #30 tab-caps 07/31/24 08/26/24 diazepam 5 mg tablet (Valium) 2.5 mg (1/2 x 5 mg) PO BID PRN #10 08/26/24 tabs dofetilide 500 mcg capsule 500 mcg PO BID Afib #10 caps 08/26/24 dofetilide 500 mcg capsule 500 mcg PO BID #180 tab-caps 08/26/24 (Tikosyn) Previous Rx's ?Medication ?Instructions ?Recorded terazosin 2 mg capsule 2 mg PO DAILY #90 tab-caps 08/02/23 magnesium oxide 400 mg (241.3 mg 400 mg PO DAILY #90 tabs 08/20/23 magnesium) tablet furosemide 20 mg tablet 20 mg PO DAILY #90 tabs 08/23/23 metoprolol succinate 25 mg 25 mg PO DAILY #90 tabs 08/23/23 tablet,extended release 24 hr potassium chloride 10 mEq 20 meq (2 x 10 mEq) PO DAILY #60 09/15/23 capsule,extended release tab-caps rosuvastatin 20 mg tablet 20 mg PO DAILY #90 tabs 09/22/23 lisinopril 40 mg tablet 40 mg PO DAILY #90 tabs 10/11/23 omeprazole 40 mg capsule,delayed 40 mg PO DAILY #90 caps 10/18/23 release gabapentin 600 mg tablet 600 mg PO QHS #90 tabs 11/14/23 fluticasone propionate 50 2 spray intranasal DAILY 90 days 12/26/23 mcg/actuation nasal #48 mL spray,suspension sertraline 50 mg tablet 50 mg PO DAILY #90 tabs 02/28/24 tadalafil 5 mg tablet (Cialis) 5 mg PO DAILY BPH with LUTS #90 04/19/24 tabs rivaroxaban 20 mg tablet (Xarelto) 20 mg PO DAILY #30 tab-caps 07/31/24 diazepam 5 mg tablet (Valium) 2.5 mg (1/2 x 5 mg) PO BID PRN #10 08/26/24 tabs dofetilide 500 mcg capsule 500 mcg PO BID Afib #10 caps 08/26/24 dofetilide 500 mcg capsule 500 mcg PO BID #180 tab-caps 08/26/24 (Tikosyn) Allergies Allergy/AdvReac Type Severity Reaction Status Date / Time sildenafil AdvReac Intermediate FLUSHING Verified 08/26/24 10:08 simvastatin AdvReac Intermediate Severe Verified 08/26/24 10:08 myalgias General Stated Complaint: RX Refill GUS: 5 Exam Const General: cooperative, healthy appearing, well developed and well groomed Nutritional Appearance: average body habitus Orientation: alert, awake and oriented x3 Resp Effort & Inspection: normal respiratory effort and able to speak in complete sentences Course Vital Signs Vital signs: Vital Signs Temperature 36.6 C 08/26/24 10:02 Pulse 59 L 08/26/24 10:02 Respiratory Rate 16 08/26/24 10:02 Blood Pressure 158/80 H 08/26/24 10:02 Pulse Oximetry 99 08/26/24 10:02 Temperature 36.6 C 08/26/24 10:02 Temperature Source Oral 08/26/24 10:02 Pulse 59 L 08/26/24 10:02 Respiratory Rate 16 08/26/24 10:02 Blood Pressure 158/80 H 08/26/24 10:02 Pulse Oximetry 99 08/26/24 10:02 Oxygen Delivery Method Room Air 08/26/24 10:02 Oxygen Flow Rate 0 08/26/24 10:02 Pain Level 0 08/26/24 10:02 Medical Decision Making Patient requesting a refill of his dofetilide. He reports that he has been out for the last 2 days and [facility]. Prescription given for 5 days of the medication. Patient given 2 tablets of the medication here in the department as the pharmacy states that they are out of stock at this time. This text was generated using [employer] system, please disregard any odd ities of phrase or misspellings. Quality:SDOH Health Related Social Needs: No Data to Display PFSH All Active Problems Prescription refill (Acute) Night sweats (Acute) Incomplete bladder emptying (Acute) Erectile dysfunction (Acute) Tubular adenoma of colon (Acute ~12/2022) New onset atrial fibrillation (Chronic 01/03/14) Syncopal episodes (Chronic 01/03/14) Irritable bowel syndrome (Chronic) a. recurrent diarrhea. b. controlled with oral dicyclomine occasionally. Diverticulitis (Chronic 12/31/13) a. diagnosed empirically 12/31/2013, started on Cipro and Flagyl. b. Presented 01/01/14 to the emergency room with worsening abdominal pain. Abdominal pelvic CT scan did not show any significant abnormality. Flagyl was stopped. Continued on Cipro. Gastroesophageal reflux disease (Chronic) a. chronic PPI therapy. Hypertension (Chronic) Decreased hearing (Chronic) right arm dysfunction (Chronic) a. Fall from a horse years ago.--Pt. denies this 03/27/20 Colonic polyp (Chronic) a. status post colonoscopy December 2012. b. complicated by question of a perforation. Admitted for observation x4 days. Discharged on Augmentin. c. surgical pathology apparently benign, not currently available. Hypercholesterolemia (Chronic) a. question intolerance to simvastatin because of myalgias, currently off medications. 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 Pang last seen 2 months ago. Per pt. a-fib has been under control for a while with Tikosyn. Adequate anticoagulation on anticoagulant therapy (Chronic) jail current use of antiarrhythmic drug (Chronic) Peripheral edema (Acute) Hyperlipidemia (Acute) BPH (benign prostatic hyperplasia) (Chronic) pt. denies Vitamin B12 deficiency (Acute) History of basal cell carcinoma (Acute) Chronic rhinitis (Acute 01/03/20) ENT/Keesha Conductive hearing loss, external ear (Acute 01/03/20) ENT/Keesha History of parasitic infection (Acute) Diarrhea of presumed infectious origin (Acute) Abdominal tenderness, RUQ (right upper quadrant) (Acute) on exam, on top of bloating, diarrhea Non-alcoholic fatty liver disease (Acute) Sessile colonic polyp (Acute) Hyperplastic colon polyp (Acute) Shortness of breath (Acute) Shoulder injury (Acute) Bilateral hand numbness (Acute) Anxiety (Chronic) Right rotator cuff tear arthropathy (Chronic) Depo-Medrol injection: 01/20/2022 Bursitis of right shoulder (Acute) Biceps tendinitis of right shoulder (Acute) Impacted cerumen, bilateral (Acute) Ear itch (Acute) SARS-CoV-2 positive (Acute 04/16/22) Nail dystrophy (Acute) Screening for colon cancer (Acute) Mass of soft tissue of neck (Acute) Medical History Pre-diabetes History of umbilical hernia Sleep apnea uses CPAP Surgical History History of umbilical hernia repair (~04/02/20) History of esophagogastroduodenoscopy (~01/10/23) Status post carpal tunnel release Status post vasectomy H/O colonoscopy (~01/10/23) 12/2022 Vasectomy Open Carpal Tunnel release x2 EGD - MAC (08/20/14) 12/2022 Family History Mother Osteoporosis Heart disease Father Heart disease Brother Heart disease Grandfather No problems noted. Grandfather Heart disease Grandmother Heart disease Grandmother Heart disease Daughter No problems noted. Son No problems noted. 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 Pets and animals: No Sexually active: No Do you think of yourself as: lesbian/barcenas/homosexual Current gender identity: male What is your relationship status?: living with partner How often do you talk on the phone with friends or family?: three or more times per week How often do you get together with friends or relatives?: once per week Do you belong to any clubs or organized social groups?: no Panel score (0-1 are the most socially isolated patients): 2 What type of physical activity do you participate in: walking Duration: 15-30 minutes/day Frequency: 1-2 times per week Lili/Cheondoism: Holiness Special lili needs: No Seatbelt use: always Helmet use: No (Never) Drive intox or ride w/intox independent driver: No Working smoke detector in home: Yes Fire extinguisher in home: Yes Carbon monox detector in home: Yes Do you feel safe at home: Yes Do you feel safe in your relationship?: Yes
[2024-08-26] MEDS: Dofetilide 250 MCG CAP 1000 MCG PO (10:45)
== END 2024-08-26 10:22 | disposition home or self-care (01) ==
PROVIDERS: Emergency Provider Registered Nurse Emergency; PCP Physician Assistant
DX: Z76.0 Encounter for issue of repeat prescription; I10 Essential (primary) hypertension; Z86.79 Personal history of other diseases of the circulatory system
CPT/HCPCS: 99283

== ENCOUNTER 2024-10-27 16:50 | Emergency (ER) | payer OTHER, MEDICARE, SELFPAY ==
[2024-10-27 16:54] VITALS: BP 147/70; PULSE 68; RESP 18; TEMP 36.3; O2SAT 97
--- NOTE | 2024-10-27 17:15 | DI.RAD_ITS ---
Exam(s) XR SHOULDER RT COMPLETE 2+V EXAM: XR SHOULDER RT COMPLETE 2+V CLINICAL HISTORY: fall. TECHNIQUE: 2D digital imaging was performed of the right shoulder. Four images were obtained. AP, Grashey and Y views were obtained. COMPARISON: CR XR SHOULDER RT COMPLETE 2+V from 12/10/2021 FINDINGS: BONES: No acute fracture is present. No bony destructive lesion is seen. JOINTS: No dislocation present. There is a well corticated osseous density at the posterior superior aspect of the glenoid. This was present on the prior examination. Degenerative changes are seen at the acromioclavicular and glenohumeral joint. SOFT TISSUE: Normal. IMPRESSION: No acute fracture or dislocation. DATA REPOSITORY: RADIATION DOSE DELIVERED:
--- NOTE | 2024-10-27 17:25 | W.ED.GENAD ---
Discharge Plan Disposition Patient Disposition: Home Condition: Stable Discharge Details Clinical Impression: Injury of right shoulder Primary Care Provider: Carlitos Savage ED Provider: Hattie Peres Home Meds and New Rx's Prescriptions: No Action cholecalciferol (vitamin D3) 25 mcg (1,000 unit) capsule 25 mcg PO DAILY cyanocobalamin (vitamin B-12) 5,000 mcg capsule 5,000 mcg PO DAILY tadalafil [Cialis] 5 mg tablet 5 mg PO DAILY Qty: 90 0RF gabapentin 600 mg tablet 600 mg PO QHS Qty: 90 3RF terazosin 2 mg capsule 2 mg PO DAILY Qty: 90 3RF magnesium oxide 400 mg (241.3 mg magnesium) tablet 400 mg PO DAILY Qty: 90 3RF furosemide 20 mg tablet 20 mg PO DAILY Qty: 90 3RF metoprolol succinate 25 mg tablet extended release 24 hr 25 mg PO DAILY Qty: 90 3RF potassium chloride 10 mEq capsule, extended release 20 meq PO DAILY Qty: 60 11RF rosuvastatin 20 mg tablet 20 mg PO DAILY Qty: 90 3RF lisinopril 40 mg tablet 40 mg PO DAILY Qty: 90 3RF omeprazole 40 mg capsule,delayed release(DR/EC) 40 mg PO DAILY Qty: 90 3RF fluticasone propionate 50 mcg/actuation spray,suspension 2 spray NIEVES DAILY 90 Days Qty: 48 4RF Rx Instructions: administer into each nostril sertraline 50 mg tablet 50 mg PO DAILY Qty: 90 3RF Xarelto 20 mg tablet 20 mg PO DAILY Qty: 30 11RF diazepam [Valium] 5 mg tablet 2.5 mg PO BID PRNQty: 10 0RF dofetilide [Tikosyn] 500 mcg capsule 500 mcg PO BID Qty: 180 3RF dofetilide 500 mcg capsule 500 mcg PO BID Qty: 10 0RF Rx Instructions: Take 1 capsule twice daily Discharge Instructions Instructions: Rotator Cuff Injury (DC), Shoulder Pain ED Additional Instructions: Please follow-up with your doctor or orthopedic for further evaluation of possible rotator cuff injury. Discharge Data Discharge Physician: Hattie Peres [facility] General Date/Time Provider Initiated Documentation: 10/27/24 17:15. HPI Narrative: 79-year-old right-handed male presents for evaluation after mechanical fall. Patient states that he was carrying a TV when he missed a step falling backwards landing on his right shoulder. He did not hit his head or pass out however he had difficulty getting up. It took 1 hour for him to get assistance to get up off the ground. He felt shaky afterward. He has got significant discomfort in his right shoulder. Denies any numbness or tingling. He does have a history of tear to his right rotator cuff which he managed through physical therapy. He has not required surgery. Denies any chest pain or shortness of breath. No abdominal pain. No nausea or vomiting. No numbness or tingling to his extremities. No weakness in the extremities. No neck or back pain. Related Data Home Medications ?Medication ?Instructions ?Recorded ?Confirmed cholecalciferol (vitamin D3) 25 25 mcg PO DAILY 11/17/22 10/27/24 mcg (1,000 unit) capsule cyanocobalamin (vitamin B-12) 5,000 mcg PO DAILY 11/17/22 10/27/24 5,000 mcg capsule terazosin 2 mg capsule 2 mg PO DAILY #90 tab-caps 08/02/23 10/27/24 magnesium oxide 400 mg (241.3 mg 400 mg PO DAILY #90 tabs 08/20/23 10/27/24 magnesium) tablet furosemide 20 mg tablet 20 mg PO DAILY #90 tabs 08/23/23 10/27/24 metoprolol succinate 25 mg 25 mg PO DAILY #90 tabs 08/23/23 10/27/24 tablet,extended release 24 hr potassium chloride 10 mEq 20 meq (2 x 10 mEq) PO DAILY #60 09/15/23 10/27/24 capsule,extended release tab-caps rosuvastatin 20 mg tablet 20 mg PO DAILY #90 tabs 09/22/23 10/27/24 lisinopril 40 mg tablet 40 mg PO DAILY #90 tabs 10/11/23 10/27/24 omeprazole 40 mg capsule,delayed 40 mg PO DAILY #90 caps 10/18/23 10/27/24 release gabapentin 600 mg tablet 600 mg PO QHS #90 tabs 11/14/23 10/27/24 fluticasone propionate 50 2 spray intranasal DAILY 90 days 12/26/23 10/27/24 mcg/actuation nasal #48 mL spray,suspension sertraline 50 mg tablet 50 mg PO DAILY #90 tabs 02/28/24 10/27/24 tadalafil 5 mg tablet (Cialis) 5 mg PO DAILY BPH with LUTS #90 04/19/24 10/27/24 tabs rivaroxaban 20 mg tablet (Xarelto) 20 mg PO DAILY #30 tab-caps 07/31/24 10/27/24 diazepam 5 mg tablet (Valium) 2.5 mg (1/2 x 5 mg) PO BID PRN #10 08/26/24 10/27/24 tabs dofetilide 500 mcg capsule 500 mcg PO BID Afib #10 caps 08/26/24 10/27/24 dofetilide 500 mcg capsule 500 mcg PO BID #180 tab-caps 08/26/24 10/27/24 (Tikosyn) Previous Rx's ?Medication ?Instructions ?Recorded terazosin 2 mg capsule 2 mg PO DAILY #90 tab-caps 08/02/23 magnesium oxide 400 mg (241.3 mg 400 mg PO DAILY #90 tabs 08/20/23 magnesium) tablet furosemide 20 mg tablet 20 mg PO DAILY #90 tabs 08/23/23 metoprolol succinate 25 mg 25 mg PO DAILY #90 tabs 08/23/23 tablet,extended release 24 hr potassium chloride 10 mEq 20 meq (2 x 10 mEq) PO DAILY #60 09/15/23 capsule,extended release tab-caps rosuvastatin 20 mg tablet 20 mg PO DAILY #90 tabs 09/22/23 lisinopril 40 mg tablet 40 mg PO DAILY #90 tabs 10/11/23 omeprazole 40 mg capsule,delayed 40 mg PO DAILY #90 caps 10/18/23 release gabapentin 600 mg tablet 600 mg PO QHS #90 tabs 11/14/23 fluticasone propionate 50 2 spray intranasal DAILY 90 days 12/26/23 mcg/actuation nasal #48 mL spray,suspension sertraline 50 mg tablet 50 mg PO DAILY #90 tabs 02/28/24 tadalafil 5 mg tablet (Cialis) 5 mg PO DAILY BPH with LUTS #90 04/19/24 tabs rivaroxaban 20 mg tablet (Xarelto) 20 mg PO DAILY #30 tab-caps 07/31/24 diazepam 5 mg tablet (Valium) 2.5 mg (1/2 x 5 mg) PO BID PRN #10 12/01/24 tabs dofetilide 500 mcg capsule 500 mcg PO BID Afib #10 caps 08/26/24 dofetilide 500 mcg capsule 500 mcg PO BID #180 tab-caps 08/26/24 (Tikosyn) Allergies Allergy/AdvReac Type Severity Reaction Status Date / Time sildenafil AdvReac Intermediate FLUSHING Verified 10/27/24 16:57 simvastatin AdvReac Intermediate Severe Verified 10/27/24 16:57 myalgias General Stated Complaint: Trauma GUS: 3 Review of Systems Narrative: Remainder of review of systems otherwise negative except for as noted in the HPI x 10. Exam Narrative Exam Narrative: General: non-toxic, no respiratory distress, comfortable HEENT: normocephalic, atraumatic, lids and lashes normal, PERRL, EOMI, anicteric sclera, no conjunctival injection, moist oral mucosa Neck: No vertebral tenderness Card: regular rate and rhythm, S1S2, no murmurs, rubs, or gallops Lungs: good air entry, clear to auscultation bilaterally. no wheezes, rales, rhonchi, or retractions Abd: soft, non-tender, non-distended, normal bowel sounds, no rebound or guarding, no peritoneal signs Musculoskeletal: No vertebral tenderness, pelvis stable, no deformity noted over right clavicle or shoulder, mild pain with range of motion of right shoulder, 2+ radial pulses, sensation tact, otherwise full range of motion of arms and legs, no tenderness to palpation. no clubbing, cyanosis, or edema Neurologic: appropriate for age, strength normal Psych: alert and oriented Skin: no petechiae, no lesions, warm and dry Course 79-year-old right handed male with history of prior right rotator cuff injury presents for evaluation of right shoulder pain after fall. At time of my evaluation he is neurologically intact. X-rays visualized by myself shows no fracture. Patient understands that I am unable to rule out tendon or ligamentous injury at this time. He has a known rotator cuff injury and so it is very likely that he may have further injured his rotator cuff. I offered sling however patient declined. He will ice as needed. He will follow-up with primary care or orthopedics for further evaluation. He understands indications to return. Vital Signs Vital signs: Vital Signs Temperature 36.3 C L 10/27/24 16:54 Pulse 68 10/27/24 16:54 Respiratory Rate 18 10/27/24 16:54 Blood Pressure 147/70 H 10/27/24 16:54 Pulse Oximetry 97 10/27/24 16:54 Temperature 36.3 C L 10/27/24 16:54 Pulse 68 10/27/24 16:54 Respiratory Rate 18 10/27/24 16:54 Blood Pressure 147/70 H 10/27/24 16:54 Pulse Oximetry 97 10/27/24 16:54 Medical Decision Making Quality:SDOH Health Related Social Needs: No Data to Display PFSH All Active Problems (Updated 10/27/24 @ 18:48 by Hattie Peres MD) Injury of right shoulder (Acute) Night sweats (Acute) Incomplete bladder emptying (Acute) Erectile dysfunction (Acute) Tubular adenoma of colon (Acute ~12/2022) New onset atrial fibrillation (Chronic 01/03/14) Syncopal episodes (Chronic 01/03/14) Irritable bowel syndrome (Chronic) a. recurrent diarrhea. b. controlled with oral dicyclomine occasionally. Diverticulitis (Chronic 12/31/13) a. diagnosed empirically 12/31/2013, started on Cipro and Flagyl. b. Presented 01/01/14 to the emergency room with worsening abdominal pain. Abdominal pelvic CT scan did not show any significant abnormality. Flagyl was stopped. Continued on Cipro. Gastroesophageal reflux disease (Chronic) a. chronic PPI therapy. Hypertension (Chronic) Decreased hearing (Chronic) right arm dysfunction (Chronic) a. Fall from a horse years ago.--Pt. denies this 03/27/20 Colonic polyp (Chronic) a. status post colonoscopy December 2012. b. complicated by question of a perforation. Admitted for observation x4 days. Discharged on Augmentin. c. surgical pathology apparently benign, not currently available. Hypercholesterolemia (Chronic) a. question intolerance to simvastatin because of myalgias, currently off medications. 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 Pang last seen 2 months ago. Per pt. a-fib has been under control for a while with Tikosyn. 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 denies Vitamin B12 deficiency (Acute) History of basal cell carcinoma (Acute) Chronic rhinitis (Acute 01/03/20) ENT/[place] Conductive hearing loss, external ear (Acute 01/03/20) [facility]/[place] History of parasitic infection (Acute) Diarrhea of presumed infectious origin (Acute) Abdominal tenderness, RUQ (right upper quadrant) (Acute) on exam, on top of bloating, diarrhea Non-alcoholic fatty liver disease (Acute) Sessile colonic polyp (Acute) Hyperplastic colon polyp (Acute) Shortness of breath (Acute) Shoulder injury (Acute) Bilateral hand numbness (Acute) Anxiety (Chronic) Right rotator cuff tear arthropathy (Chronic) Depo-Medrol injection: 01/20/2022 Bursitis of right shoulder (Acute) Biceps tendinitis of right shoulder (Acute) Impacted cerumen, bilateral (Acute) Ear itch (Acute) SARS-CoV-2 positive (Acute 04/16/22) Nail dystrophy (Acute) Screening for colon cancer (Acute) Mass of soft tissue of neck (Acute) Medical History Pre-diabetes History of umbilical hernia Sleep apnea uses CPAP Surgical History History of umbilical hernia repair (~04/02/20) History of esophagogastroduodenoscopy (~01/10/23) Status post carpal tunnel release Status post vasectomy H/O colonoscopy (~01/10/23) 12/2022 Vasectomy Open Carpal Tunnel release x2 EGD - MAC (08/20/14) 12/2022 Family History Mother Osteoporosis Heart disease Father Heart disease Brother Heart disease Grandfather No problems noted. Grandfather Heart disease Grandmother Heart disease Grandmother Heart disease Daughter No problems noted. Son No problems noted. 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, 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 Pets and animals: No Sexually active: No Do you think of yourself as: lesbian/barcenas/homosexual Current gender identity: male What is your relationship status?: living with partner How often do you talk on the phone with friends or family?: three or more times per week How often do you get together with friends or relatives?: once per week Do you belong to any clubs or organized social groups?: no Panel score (0-1 are the most socially isolated patients): 2 What type of physical activity do you participate in: walking Duration: 15-30 minutes/day Frequency: 1-2 times per week Lili/Episcopalian: Zoroastrianism Special lili needs: No Seatbelt use: always Helmet use: No (Never) Drive intox 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 Working smoke detector in home: Yes Fire extinguisher in home: Yes Carbon monox detector in home: Yes Do you feel safe at home: Yes Do you feel safe in your relationship?: Yes PAWSS Have you Been Recently Intoxicated or Drunk Within the Last 30 days?: No Have you Ever Experienced Previous Episodes of Alcohol Withdrawal?: No Have you ever Experienced Withdrawal Seizures?: No Have you ever Experienced Delirium Tremens(DT)s?: No Have you ever undergone Alcohol Rehabilitation Treatment (i.e, inpt ot outpatient treatment programs)?: No Have you ever Experienced Blackouts?: No Have you ever Combined Alcohol with other Downers within the last 90 days?: No Have you ever Combined Alcohol with any other Substance of Abuse during the last 90 days?: No Positive Blood Alcohol level on Presentation? [PCS.BAL]: No Evidence of Increased Autonomic Activity (i.e. HR>120, tremor, sweating, agitation, nausea)?: No Result: 0
[2024-10-27] MEDS: Acetaminophen 500 MG TAB 1000 MG PO (17:48)
--- NOTE | 2024-10-29 15:07 | NUR.NOTE ---
Nursing Note: Received call from Patient who was returning Dr. Presley voice mail. Dr. Heller note was read and patient was updated on possible glenoid fracture, [facility]
== END 2024-10-27 19:00 | disposition home or self-care (01) ==
PROVIDERS: Emergency Provider Emergency Medicine Emergency Medical Services; PCP Family Medicine
DX: S42.141A Displaced fracture of glenoid cavity of scapula, right shoulder, initial encounter for closed fracture (principal); W19.XXXA Unspecified fall, initial encounter
CPT/HCPCS: 99283; 73030

== ENCOUNTER 2024-11-27 14:50 | Outpatient (CLI) | payer OTHER, MEDICARE, SELFPAY ==
--- NOTE | 2024-11-27 14:00 | DI.RAD_ITS ---
Exam(s) XR SHOULDER RT COMPLETE 2+V EXAM: XR SHOULDER RT COMPLETE 2+V CLINICAL HISTORY: RIGHT SHOULDER PAIN. TECHNIQUE: 2D digital imaging was performed. Five views. COMPARISON: CR XR SHOULDER RT COMPLETE 2+V from 12/10/2021 CR XR SHOULDER RT COMPLETE 2+V from 10/27/2024 FINDINGS: BONES: No acute fracture is present. There is slight deformity of the inferior glenoid which could r epresent degenerative spurring versus old fracture. No bony destructive lesion is seen. JOINTS: No dislocation present. The glenohumeral joint space is maintained. The humeral head is sup eriorly positioned, beneath the acromion, consistent with chronic rotator cuff tear. There is spurri ng at the the undersurface of the acromion and coracoid acromial ligament. There is mild spurring at the AC joint. SOFT TISSUE: Normal. IMPRESSION: Degenerative changes and chronic rotator cuff tear. DATA REPOSITORY: RADIATION DOSE DELIVERED:
== END 2024-11-27 14:51 | disposition home or self-care (01) ==
LOC: DIORS 14:51
PROVIDERS: PCP Family Medicine; Visit Provider Physician Assistant
DX: M25.511 Pain in right shoulder (principal)
CPT/HCPCS: 73030

== ENCOUNTER 2025-01-15 08:44 | Outpatient (CLI) | payer OTHER, SELFPAY ==
--- NOTE | 2025-01-15 08:54 | DI.RAD_ITS ---
Exam(s) XR SHOULDER RT 1V EXAM: XR SHOULDER RT 1V CLINICAL HISTORY: f/u fracture. TECHNIQUE: 2D digital imaging was performed of the right shoulder. One images were obtained. AP vi ews were obtained. COMPARISON: CR XR SHOULDER RT COMPLETE 2+V from 12/10/2021 CR XR SHOULDER RT COMPLETE 2+V from 10/27/2024 CR XR SHOULDER RT COMPLETE 2+V from 11/27/2024 FINDINGS: This is a single AP view of the right shoulder. BONES: The calcification at the inferior glenoid is still present. No bony destructive lesion is see n. JOINTS: There are degenerative changes seen at both the glenohumeral and acromioclavicular joints. T here is narrowing of the acromial humeral interval with a spur at the lateral aspect of the acromion. SOFT TISSUE: Normal. IMPRESSION: DATA REPOSITORY: RADIATION DOSE DELIVERED:
== END 2025-01-15 08:45 | disposition home or self-care (01) ==
LOC: DIORS 08:44
PROVIDERS: PCP Family Medicine; Visit Provider Student in an Organized Health Care Education/Training Program
DX: S42.141A Displaced fracture of glenoid cavity of scapula, right shoulder, initial encounter for closed fracture (principal)
CPT/HCPCS: 73020

== ENCOUNTER 2025-06-27 11:14 | Emergency (ER) | payer OTHER, SELFPAY ==
[2025-06-27 11:17] VITALS: BP 138/72; PULSE 65; RESP 16; TEMP 36.4; O2SAT 96
[2025-06-27 11:24] VITALS: BP 138/72; PULSE 65; RESP 16; TEMP 36.4; O2SAT 96
--- NOTE | 2025-06-27 12:15 | RT.EKG_ITS ---
APPROVED REPORT Exam: Resting ECG Reason for Exam: fatigue Patient Location: E HR:46 bpm ECG Measurements Heart Rate 46 AXIS OH 212 P 38 QRSd 79 QRS 0 QT 461 T 21 QTc 402 Conclusion Sinus bradycardia...rate< 60
[2025-06-27 12:58] LABS: Abs Immature Grans 0.01 10^3/uL (0.0-0.06); HCT 41.5 % (40.0-50.0); HGB 14.1 g/dL (13.5-17.5); Immature Grans % 0.2 %; MCH 32.1 pg (27.0-33.0); MCHC 34.0 % (32.0-36.0); MCV 95 fL (80-95); MPV 9.3 fL (8.0-11.0); Platelet Count 227 10^3/uL (130-400); RBC 4.39 10^6/uL (4.36-5.78); RDW 12.1 % (11.8-14.1); RDW-SD 42.3 fL; WBC 4.58 10^3/uL (4.4-10.8)
[2025-06-27 13:09] LABS: Glucose Negative (Negative)
[2025-06-27 13:19] LABS: C & S Indicated? No; RBC 0-2 HPF (0-2); WBC Negative HPF (0-5)
[2025-06-27 13:25] LABS: Hemoglobin A1C 5.2 % (<5.7)
[2025-06-27 13:28] LABS: ALT 35 U/L (16-63); AST 21 U/L (15-37); Albumin 4.1 g/dL (3.4-5.0); Alkaline Phosphatase 56 U/L (46-116); Anion Gap 5.8 mmol/L (3-11); BUN 16 mg/dL (7-18); Bilirubin, Total 0.5 mg/dL (0.2-1.0); CO2 31.2 mmol/L (21.0-32.0); Calcium 9.5 mg/dL (8.5-10.1); Chloride 103 mmol/L (98-107); Estimated GFR 68.29 (mL/min/1.73m2); Glucose 106 mg/dL (74-106); Magnesium 2.1 mg/dL (1.8-2.4); Potassium 5.2 mmol/L (3.5-5.1); Sodium 140 mmol/L (136-145); TSH (W/Ref FT4) 0.95 uIU/mL (0.36-3.74); Total Protein 7.4 g/dL (6.4-8.2); Troponin I 8 ng/L (<or=76)
[2025-06-27 14:16] LABS: Troponin I 9 ng/L (<or=76)
[2025-06-27 15:24] VITALS: BP 131/65; PULSE 62; RESP 18; O2SAT 98
[2025-06-28 11:42] LABS: Lyme Ab w Rflx to Lyme Confirm Negative (Negative)
--- NOTE | 2025-06-28 18:16 | ED.GENADUL_ITS ---
Discharge Plan Disposition Patient Disposition: Home Condition: Stable Discharge Details Clinical Impression: Acute hyperkalemia, Bradycardia Primary Care Provider: Carlitos Savage ED Provider: Anne-Marie Gaines Home Meds and New Rx's Prescriptions: New metoprolol succinate 25 mg tablet extended release 24 hr 25 mg PO DAILY Qty: 12.5 0RF Continued cholecalciferol (vitamin D3) 25 mcg (1,000 unit) capsule 25 mcg PO DAILY cyanocobalamin (vitamin B-12) 5,000 mcg capsule 5,000 mcg PO DAILY tadalafil [Cialis] 5 mg tablet 5 mg PO DAILY Qty: 90 0RF fluticasone propionate 50 mcg/actuation spray,suspension 2 spray NIEVES DAILY 90 Days Qty: 48 4RF Rx Instructions: administer into each nostril omeprazole 40 mg capsule,delayed release(DR/EC) 40 mg PO DAILY Qty: 90 3RF terazosin 2 mg capsule 2 mg PO DAILY Qty: 90 3RF magnesium oxide 400 mg (241.3 mg magnesium) tablet 400 mg PO DAILY Qty: 90 3RF furosemide 20 mg tablet 20 mg PO DAILY Qty: 90 3RF rosuvastatin 20 mg tablet 20 mg PO DAILY Qty: 90 3RF lisinopril 40 mg tablet 40 mg PO DAILY Qty: 90 3RF Xarelto 20 mg tablet 20 mg PO DAILY Qty: 30 11RF gabapentin 600 mg tablet 600 mg PO QHS Qty: 90 3RF sertraline 50 mg tablet 50 mg PO DAILY Qty: 90 3RF diazepam [Valium] 5 mg tablet 2.5 mg PO BID PRNQty: 10 0RF dofetilide [Tikosyn] 500 mcg capsule 500 mcg PO BID Qty: 180 3RF Discontinued metoprolol succinate 25 mg tablet extended release 24 hr 25 mg PO DAILY Qty: 90 3RF potassium chloride 10 mEq capsule, extended release 20 meq PO DAILY Qty: 60 11RF Discharge Instructions Instructions: Bradycardia, Hyperkalemia Additional Instructions: Decrease your metoprolol to 12.5 or half a tab, if your pills scored you can cut it in half safely Stop taking your potassium, your potassium level is too high Your blood pressure and potassium should be rechecked in 1 week The remainder of your tests are reassuring Please return earlier should you have new or worsening complaints Referrals: Erika Wooten [ [facility] STAFF PHYSICIAN, Medicine] Discharge Data Discharge Date/Time-TO BE ENTERED AT DEPARTURE: 06/27/25 15:27 HPI General Date/Time Provider Initiated Documentation: 06/27/25 11:56 . HPI Narrative: This 80-year-old male with past medical history of atrial fibrillation long-term anticoagulation use hypertension B12 deficiency presents with report of some intermittent mild headaches overwhelming fatigue intermittent back pain. He states he had blepharoplasty 2 weeks ago with local anesthesia and since that time he has been feeling very tired. Denies any fever significant headache to in fact he does not have a headache right now. He states the real reason why he presents is because he feels so tired. He states this is very unusual for him. He denies any chest pain or shortness of breath. He denies nausea vomiting or diarrhea. He states he has had headaches in the past and this is definitely not the worst headache he has had. He denies any known tick bites. Related Data Home Medications ?Medication ?Instructions ?Recorded ?Confirmed cholecalciferol (vitamin D3) 25 25 mcg PO DAILY 01/15/25 mcg (1,000 unit) capsule cyanocobalamin (vitamin B-12) 5,000 mcg PO DAILY 11/1701/15/25 5,000 mcg capsule terazosin 2 mg capsule 2 mg PO DAILY #90 tab-caps 1 10/02/22 01/15/25 magnesium oxide 400 mg (241.3 mg 400 mg PO DAILY #90 t abs 08/20/23 01/15/25 magnesium) tablet furosemide 20 mg tablet 20 mg PO DAILY #90 tabs 07/2801/15/25 rosuvastatin 20 mg tablet 20 mg PO DAILY #90 tabs 08/2701/15/25 lisinopril 40 mg tablet 40 mg PO DAILY #90 tabs 09/2601/15/25 tadalafil 5 mg tablet (Cialis) 5 mg PO DAILY BPH with LUTS #90 04/19/24 01/15/25 tabs rivaroxaban 20 mg tablet (Xarelto) 20 mg PO DAILY #30 tab-caps 07/31/24 01/15/25 diazepam 5 mg tablet (Valium) 2.5 mg (1/2 x 5 mg) PO B ID PRN #10 08/26/24 01/15/25 tabs dofetilide 500 mcg capsule 500 mcg PO BID #180 tab-cap s 08/26/24 01/15/25 (Tikosyn) fluticasone propionate 50 2 spray intranasal DAILY 90 days 11/22/24 01/15/25 mcg/actuation nasal #48 mL spray,suspension omeprazole 40 mg capsule,delayed 40 mg PO DAILY #90 ca ps 11/22/24 01/15/25 release gabapentin 600 mg tablet 600 mg PO QHS #90 tabs 12/2001/15/25 sertraline 50 mg tablet 50 mg PO DAILY #90 tabs 01/25 metoprolol succinate 25 mg 25 mg PO DAILY #12.5 tabs 1 tablet,extended release 24 hr Previous Rx's ?Medication ?Instructions ?Recorded terazosin 2 mg capsule 2 mg PO DAILY #90 tab-caps 1 10/02/22 magnesium oxide 400 mg (241.3 mg 400 mg PO DAILY #90 t abs 08/20/23 magnesium) tablet furosemide 20 mg tablet 20 mg PO DAILY #90 tabs 07/28 05/18 rosuvastatin 20 mg tablet 20 mg PO DAILY #90 tabs 08/27 05/18 lisinopril 40 mg tablet 40 mg PO DAILY #90 tabs 09/26 03/19 tadalafil 5 mg tablet (Cialis) 5 mg PO DAILY BPH with LUTS #90 04/19/24 tabs rivaroxaban 20 mg tablet (Xarelto) 20 mg PO DAILY #30 tab-caps 07/31/24 diazepam 5 mg tablet (Valium) 2.5 mg (1/2 x 5 mg) PO B ID PRN #10 08/26/24 tabs dofetilide 500 mcg capsule 500 mcg PO BID #180 tab-cap s 08/26/24 (Tikosyn) fluticasone propionate 50 2 spray intranasal DAILY 90 days 11/22/24 mcg/actuation nasal #48 mL spray,suspension omeprazole 40 mg capsule,delayed 40 mg PO DAILY #90 ca ps 11/22/24 release gabapentin 600 mg tablet 600 mg PO QHS #90 tabs 12/20 sertraline 50 mg tablet 50 mg PO DAILY #90 tabs 01/25 metoprolol succinate 25 mg 25 mg PO DAILY #12.5 tabs 1 tablet,extended release 24 hr Allergies Allergy/AdvReac Type Severity Reaction Status Date / Time sildenafil AdvReac Intermediate FLUSHING Verified 01/15/25 08:20 simvastatin AdvReac Intermediate Severe Verified 01/15/25 08:20 myalgias General Stated Complaint: Urinary GUS: 3 Exam Narrative Exam Narrative: Alert, oriented, quite well-appearing gentleman with normal cardiac rate and rhythm pupils are equal round reactive to light and accommodation well-healing blepharoplasty sites on bilateral upper lids, lungs clear to auscultation no respiratory distress no abdominal tenderness no flank tenderness GCS 15 ambulatory with steady gait oropharynx patent uvula midline no rashes or lesions Course Vital Signs Vital signs: Vital Signs Temperature 36.4 C L 06/27/25 11:17 Pulse 65 06/27/25 11:17 Respiratory Rate 16 06/27/25 11:17 Blood Pressure 138/72 06/27/25 11:17 Pulse Oximetry 96 06/27/25 11:17 Temperature 36.4 C L 06/27/25 11:24 Temperature Source Tympanic 06/27/25 11:17 Pulse 62 06/27/25 15:24 Respiratory Rate 18 06/27/25 15:24 Blood Pressure 131/65 06/27/25 15:24 Blood Pressure Position Sitting 06/27/25 11:17 Pulse Oximetry 98 06/27/25 15:24 Oxygen Delivery Method Room Air 06/27/25 11:24 Oxygen Flow Rate 0 06/27/25 11:17 Pain Level 4 06/27/25 11:24 Lab/Test Results Lab/Test Results: Laboratory Tests Range/Units 06/27/25 06/27/25 12:46 13:53 WBC (4.4-10.8) 10^3/uL 4.58 RBC (4.36-5.78) 10^6/uL 4.39 Hgb (13.5-17.5) g/dL 14.1 Hct (40.0-50.0) % 41.5 MCV (80-95) fL 95 MCH (27.0-33.0) pg 32.1 MCHC (32.0-36.0) % 34.0 RDW (11.8-14.1) % 12.1 Plt Count (130-400) 10^3/uL 227 MPV (8.0-11.0) fL 9.3 Immature Gran % % 0.2 Neutrophils % % 49.4 Lymphocytes % % 28.4 Monocytes % % 10.9 Eosinophils % % 10.7 Basophils % % 0.4 Nucleated RBC % (0.0-0.3) % 0.0 Absolute Neutrophils (1.2-6.7) 10^3/uL 2.26 Absolute Lymphocytes (1.2-3.4) 10^3/uL 1.30 Absolute Monocytes (0.1-0.8) 10^3/uL 0.50 Absolute Eosinophils (0.0-0.7) 10^3/uL 0.49 Absolute Basophils (0.0-0.2) 10^3/uL 0.02 Sodium (136-145) mmol/L 140 Potassium (3.5-5.1) mmol/L 5.2 H Chloride (98-107) mmol/L 103 Carbon Dioxide (21.0-32.0) mmol/L 31.2 Anion Gap (3-11) mmol/L 5.8 BUN (7-18) mg/dL 16 Creatinine (0.70-1.30) mg/dL 1.1 Est GFR (CKD-EPI 2020) (mL/min/1.73m2) 68.29 Glucose (74-106) mg/dL 106 Hemoglobin A1c (<5.7) % 5.2 Calcium (8.5-10.1) mg/dL 9.5 Magnesium (1.8-2.4) mg/dL 2.1 Total Bilirubin (0.2-1.0) mg/dL 0.5 AST (15-37) U/L 21 ALT (16-63) U/L 35 Alkaline Phosphatase (46-116) U/L 56 Troponin I (<or=76) ng/L 8 9 Total Protein (6.4-8.2) g/dL 7.4 Albumin (3.4-5.0) g/dL 4.1 TSH (0.36-3.74) uIU/mL 0.95 Urine Color (Yellow) Yellow Urine Clarity (Clear) Clear Urine pH (5-8) 6.0 Ur Specific [place] (1.005-1.025) 1.010 Urine Protein (Neg-Trace) mg/dL Negative Urine Ketones (Negative) mg/dL Negative Urine Blood (Negative) Trace-lysed H Urine Nitrite (Negative) Negative Urine Bilirubin (Negative) Negative Urine Urobilinogen (Up to 0.2) mg/dL 0.2 Ur Leukocyte Esterase (Negative) Negative Urine RBC (0-2) HPF 0-2 Urine WBC (0-5) HPF Negative Ur Epithelial Cells (Negative) HPF Rare Urine Crystals (Negative) HPF Negative Urine Bacteria (Negative) HPF Negative Urine Casts (Negative) LPF Negative Urine Mucus (Negative) Negative Ur Culture Indicated? No Urine Glucose (Negative) mg/dL Negative Lyme Disease Antibody (Negative) Negative Medical Decision Making Results: EKG with pulse of 46 at rest CBC CMP urinalysis does not show evidence of acute abnormality there is trace lysed blood patient will need to have this recheck[facility] by [facility] TSH within normal limits, potassium 5.2 Assessment and plan: Patient is presenting with fatigue after having a blepharoplasty. His exam is quite benign in nature he is having some bradycardic episodes in the emergency department although does not really seem like he is symptomatic with them. He is on 25 mg of extended release metoprolol and I will decrease this to 12.5. He does take potassium daily and his potassium is 5.2 he is encouraged to stop his potassium and have it rechecked in 1 week with his provider. He is encouraged to call his provider tomorrow and schedule an appointment for reassessment next week. He will need his blood pressure pulse and potassium rechecked to determine whether or not he should continue on a lower dose of potassium supplementation. His EKG is inconsistent with acute hyperkalemia and I think patient is very stable for discharge with discontinuation of his potassium. Return precautions reviewed in detail and patient expressed understanding. Patient was not orthostatic on my assessment I did consider performing a head CT to look for tumor or mass however given how well-appearing patient is and the fact that he tells me he had a normal MRI a year ago I have low suspicion that a CT scan will be of high yield and I think the benefit of radiation outweighs the risk. I did order also a Lyme or tick panel that is pending at this time for completeness. Quality:SDOH Health Related Social Needs: Health related social needs education PFSH All Active Problems (Updated 06/27/25 @ 14:54 by ZEN Borja) Bradycardia (Acute) Acute hyperkalemia (Acute) Fracture of glenoid process of right scapula (Acute 10/27/24) Erectile dysfunction (Acute) Tubular adenoma of colon (Acute ~12/2022) Irritable bowel syndrome (Chronic) a. recurrent diarrhea. b. controlled with oral dicyclomine occasionally. Gastroesophageal reflux disease (Chronic) a. chronic PPI therapy. Hypertension (Chronic) right arm dysfunction (Chronic) a. Fall from a horse years ago.--Pt. denies this 03/27/20 Colonic polyp (Chronic) a. status post colonoscopy December 2012. b. complicated by question of a perforation. Admitted for observation x4 days. Discharged on Augmentin. c. surgical pathology apparently benign, not currently available. Hypercholesterolemia (Chronic) a. question intolerance to simvastatin because of myalgias, currently off medications. 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 Pang last seen 2 months ago. Per pt. a-fib has been under control for a while with Tikosyn. Peripheral edema (Acute) Vitamin B12 deficiency (Acute) Chronic rhinitis (Acute 01/03/20) ENT/[place] Conductive hearing loss, external ear (Acute 01/03/20) ENT/[place] Non-alcoholic fatty liver disease (Acute) Sessile colonic polyp (Acute) Hyperplastic colon polyp (Acute) Bilateral hand numbness (Acute) Anxiety (Chronic) Right rotator cuff tear arthropathy (Chronic) Depo-Medrol injection: 01/20/2022 Bursitis of right shoulder (Acute) Biceps tendinitis of right shoulder (Acute) Ear itch (Chronic) Screening for colon cancer (Acute) Medical History (Updated 06/27/25 @ 14:54 by ZEN Borja) History of basal cell carcinoma Pre-diabetes History of umbilical hernia Sleep apnea uses CPAP Surgical History History of umbilical hernia repair (~04/02/20) History of esophagogastroduodenoscopy (~01/10/23) Status post carpal tunnel release Status post vasectomy H/O colonoscopy (~01/10/23) 12/2022 Vasectomy Open Carpal Tunnel release x2 EGD - MAC (08/20/14) 12/2022 Family History Mother Osteoporosis Heart disease Father Heart disease Brother Heart disease Grandfather No problems noted. Grandfather Heart disease Grandmother Heart disease Grandmother Heart disease Daughter No problems noted. Son No problems noted. 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, 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 Pets and animals: No Sexually active: No Do you think of yourself as: lesbian/barcenas/homosexual Current gender identity: male What is your relationship status?: living with partner How often do you talk on the phone with friends or family?: three or more times per week How often do you get together with friends or relatives?: once per week Do you belong to any clubs or organized social groups?: no Panel score (0-1 are the most socially isolated patients): 2 What type of physical activity do you participate in: walking Duration: 15-30 minutes/day Frequency: 1-2 times per week Lili/Tenriism: Orthodox Special lili needs: No Seatbelt use: always Helmet use: No (Never) Drive intox or ride w/intox 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
[2025-06-29 23:44] LABS: B. miyamotoi PCR Negative (Negative); Babesia divergens/MO-1 Negative (Negative); Ehrlichia muris eauclairensis Negative (Negative)
--- NOTE | 2025-07-01 09:03 | NUR.NOTE ---
Access chart to determine antibiotic on discharge for Lyme antibody. Result given to provider. Nursing Note:
--- NOTE | 2025-07-01 09:09 | W.ED.FU ---
Date of service: 07/01/25 Time of Service: 09:09 Follow Up Plan: Received the results of a tick and Lyme panel ordered at this patient's ED visit, all of which was negative. No action or intervention required. Nusrat Mahoney MD
== END 2025-06-27 15:27 | disposition home or self-care (01) ==
PROVIDERS: Emergency Provider Physician Assistant; PCP Family Medicine
DX: R00.1 Bradycardia, unspecified (principal); E87.5 Hyperkalemia
CPT/HCPCS: 36415; 80053; 87798; 93005; 99284; 81003; 81015; 83036; 83735; 84443; 84484; 85025; 86618; 93010

== ENCOUNTER → 2025-09-13 00:03 | Outpatient (CLI) | payer MEDICARE, SELFPAY ==
--- NOTE | 2025-09-13 06:30 | DI.MRI_ITS ---
Exam(s) MR BRAIN WO EXAM: MR BRAIN WO CLINICAL HISTORY: ? stroke,vision changes,h53.9 TECHNIQUE: Multiplanar multisequence MRI of the brain was performed. COMPARISON: No exams were available for comparison FINDINGS: VENTRICLES AND EXTRA AXIAL SPACES: Normal in size and morphology for the patient's age. MIDLINE SHIFT: None. CEREBRAL PARENCHYMA: No focus of restricted diffusion to suggest acute infarct. No space-occupying lesion identified. There are multiple areas of hyperintense signal seen in the white matter on the FLAIR and T2 weighted images consistent with chronic microvascular ischemic disease. HEMORRHAGE: None. BRAINSTEM/CEREBELLUM: Normal. CALVARIUM: Normal. VISUALIZED PARANASAL SINUSES/MASTOIDS:There is a mucous retention cyst or polyp in the left maxillary sinus. KAW OF LR: Normal flow void. PITUITARY GLAND: Unremarkable. OTHER FINDINGS: None. IMPRESSION: 1. There is no evidence of an acute infarct. 2. Age-related cerebral atrophy and chronic microvascular ischemic disease is present. DATA REPOSITORY:
== END ==
LOC: DI 00:03
PROVIDERS: PCP Family Medicine; Visit Provider Family Medicine
DX: H53.9 Unspecified visual disturbance (principal); G31.1 Senile degeneration of brain, not elsewhere classified; I67.82 Cerebral ischemia
CPT/HCPCS: 70551